=== PATIENT | female | born 1960 | race Caucasian/White ===

== ENCOUNTER 2021-10-28 14:25 | Outpatient (RCR) | payer OTHER, SELFPAY ==
--- OUTSIDE RECORDS SUMMARY | 2021-10-16 14:48 | XMS_ITS | Continuity of Care Document ---
:1960 Author Care Team Providers Name Role Phone MD Yoav Attending Physician Unavailable MD Yari Tate Primary Care Physician Chief Complaint and Reason for Visit Chief Complaint Hypertension Reason for Visit Flushing syndrome Transient rise of blood pres sure Allergies, Adverse Reactions, Alerts Allergen Type Severity Reaction Last Verified Status Updated Latex Allergy Severe HIVES, LIP October 06, Yes Active SWELLING, 2021 THROAT SWELLING, RESPIRATORY DIFFICULTY KIWIS Allergy Moderate ITCHING July 25, No Active 2013 Social History Smoking Status Status Start Date End Date Date of Observat ion Never smoked tobacco October 07 022 8:33am (finding) Observation Status Observation Response Date of Response History provided by Patient April 23, 2017 1:06pm Where do you live? Own home/apt April 23, 2017 1:06pm With whom do you live? Significant Other April 23 1:06pm Additional Data Assigned Sex Female Problems Active Problems Medical Problem Onset Date Status Benign tachycardia - reported June 17, 2011 Resolved Hypothyroidism June 17, 2011 Active Carpal Tunnel Syndrome June 17, 2011 Active Lipoma June 17, 2011 Active Breast cancer Resolved Constipation Active Ovarian cyst Active Fibroid uterus Active Chronic low back pain Active Joint pain Active Low libido Active Osteopenia Active Generalized anxiety disorder Active Insomnia Active Well woman exam with routine Active gynecological exam Ganglion cyst Active Breast cancer 2021 Active Breast Lump June 17, 2011 Resolved Cholecystectomy June 17, 2011 Resolved NovaSure in 2009 June 17, 2011 Resolved tubal sterilization June 17, 2011 Resolved hand surgery June 17, 2011 Resolved S/P total hip arthroplasty Active Status post bilateral Active salpingo-oophorectomy (BSO) Status post left breast biopsy Active Medications Medication Status Dose Units Route Directions Qty Days Start End Ins tructions Date Date Acetaminophe Active 325-65 MG PO Every 4 100 NO MORE THAN n (Tylenol) 0 Hours as 4000 MG/DAY 325 Mg TAB needed Amoxicillin Active 2000 MG PO Once 08 July 1 HR MN IOR TO , APPT 2020 10:40am Ibuprofen Active 600 MG PO Every 6 30 Hours as needed Levothyroxin Active 100 MCG PO Daily October e Sodium 2021 9:52am Lorazepam Active 0.5 MG PO Every 12-24 October (Ativan) 0.5 Hours 15, Mg TAB 2021 10:11am Lorazepam Active 0.5 MG PO Twice A Day 60 30 October (Ativan) 0.5 15, Mg TAB 2021 10:15am Prochlorpera Active 10 MG PO Every 8-12 30 October P RN zine Maleate Hours as , Naus ea/vomiti needed for 2021 ng Nausea/Vomi 12:04pm ting Acetaminophe Disconti 325-65 MG PO Every 4 Decemb NO MORE THAN n (Tylenol) nued 0 Hours as er 4000 MG/DAY 325 Mg TAB needed 2015 10:43a m Acetaminophe Disconti 1 TAB PO Q4h Prn December n/Hydrocodon nued , ry e Bitart 2004, (Vicodin Es 1:03pm 2006 750/7.5 Mg) 12:03p 1 Ea TAB m Albuterol Disconti 2 PUFF INH Every 4 October (Ventolin nued Hours as 4th, 8th, Hfa) 90 Mcg needed 2017 2017 DOSE 3:50pm 3:18pm Amoxicillin Disconti 2000 MG PO Once May 1 H R PRIOR TO nued , , APPT 2019 2020 1:34pm 10:40a m Amoxicillin Disconti 1 TABLET PO Twice Daily July & Pot nued For 10 Days , , Clavulanate 2015 2015 (Augmentin) 11:51am 1:15pm 875 Mg/125 Mg TAB Amoxicillin/ Disconti 1 TAB PO Twice A Day July Clavulanate nued , , Potassium 2018 2018 (Amoxicillin 2:19pm 2:00pm & Pot Clavulanate) 875 Mg/125 Mg TAB Anastrozole Disconti 1 MG OR Daily May nued , 2020 1:07pm 1:46pm Anastrozole Disconti 1 MG OR Daily nued r 18, y 2019, 3:03pm 2020 1:07pm Anastrozole Disconti 1 MG PO Daily December (Arimidex) 1 nued , er Mg TAB 2019, 3:48pm 2019 12:15a m Anastrozole Disconti 1 MG PO Daily December (Arimidex) 1 nued r , , Mg TAB 2018 2019 3:06pm 3:48pm Aspirin Disconti 325 MG PO Daily Octobe nued r 2016 2:50pm Calcium/Lucila Disconti 1 TAB PO Twice A Day Sept em min D nued armando (Calcium , Carbonate/Vi 2014 tamin D) 600 2:24pm Mg/400 Unit TAB Celecoxib Disconti 200 MG PO Daily October (Celebrex) nued , er 200 Mg CAP 2016 02, 2:40pm 2015 7:37am Cephalexin Disconti 2 GRAMS PO Once 4 t abs (2 nued er y grams) by , , mouth 1 hour 2017 2019 prior to 2:51pm 10:22a dental m appointment. Cephalexin Disconti 2 GRAMS PO Once January 4 ta bs (2 nued 18, 27th, grams) by 2016 2017 mouth 1 hour 4:33pm 2:13pm prior to dental appointment. Ciprofloxaci Disconti 500 MG PO Twice A Day August n Hcl nued , , (Cipro) 500 2008 2008 Mg TAB 8:31am 8:46am Ciprofloxaci Disconti 500 MG PO Twice A Day 13 February Oc sharif n Hcl nued , r (Cipro) 500 2006, Mg TAB 10:54am 2007 1:52pm Clindamycin Disconti 150 MG PO Four Times Hcl nued Daily er 2009 3:31pm Cyclobenzapr Disconti 1 - 2 TABLET PO Three Times July PRN MUSCLE ine Hcl nued A Day , er SPASM (Flexeril) 5 2008 12, Mg TAB 1:58pm 2009 3:31pm Cyclobenzapr Disconti 10 MG PO Tid Prn Decemberua ine Hcl nued , ry 2005 , 1:03pm 2006 12:03p m Ergocalcifer Disconti 62398 UNIT PO Once Weekly 10 May Ju sadia ol (Vitamin nued 27th, 15th, D) 50,000 2020 2021 Unit CAP 1:01pm 8:31am Ergocalcifer Disconti 05445 UNIT PO Once Weekly Ja marysol ol (Vitamin nued r , y D) 50,000 2019, Unit CAP 3:31pm 2020 1:01pm Fluconazole Disconti 150 MG PO Once 1 July (Diflucan) nued , , 150 Mg TAB 2015 2015 12:47pm 1:15pm Fluconazole Disconti 150 MG PO Once July REPEAT IN nued y , 18, 3 DAYS 2008 2008 1:59pm 10:07p m Hydroxyzine Disconti 25 MG PO Q6h Prn January Pamoate nued , ry 2003, 2:11am 2006 12:03p m Ibuprofen Disconti 600 MG PO Every 6 Mayuar nued Hours as y , needed 2017 12:48p m Ibuprofen Disconti 600 MG PO Qid Prn for October nued Pain 2015 1:15pm Levothyroxin Disconti 88 MCG PO Daily August e Sodium nued , , 2020 2021 6:32pm 8:33am Levothyroxin Disconti 88 MCG PO Daily May e Sodium nued , , 2020 2020 8:03pm 6:32pm Levothyroxin Disconti 75 MCG PO Daily 30 e Sodium nued r 18, y 2019 14, 1:08pm 2020 1:17pm Levothyroxin Disconti 75 MCG PO Daily 90 Novembe Decemb e Sodium nued r , er 2018, 1:28pm 2019 1:08pm Levothyroxin Disconti 75 MCG PO Daily 90 Sept Novemb e Sodium nued er er 2018 8:24am 1:28pm Levothyroxin Disconti 75 MCG PO Daily 90 Novembe Septem e Sodium nued r 16, armando 2017 5:41am 2018 8:24am Levothyroxin Disconti 75 MCG PO Daily October e Sodium nued th, er 2017 16, 2:28pm 2017 5:41am Levothyroxin Disconti 75 MCG PO Daily August e Sodium nued 2017 10:41am 2:28pm Levothyroxin Disconti 75 MCG PO Daily August e Sodium nued 2016 3:17pm 10:41a m Levothyroxin Disconti 75 MCG PO Daily May e Sodium nued 2016 1:50pm 3:17pm Levothyroxin Disconti 75 MCG PO Daily e Sodium nued er y 2015 2:27pm 1:50pm Levothyroxin Disconti 75 MCG PO Daily August e Sodium nued , 2014, 3:33pm 2015 2:27pm Levothyroxin Disconti 75 MCG PO Daily August e Sodium nued 2013 9:11am 3:33pm Levothyroxin Disconti 75 MCG PO Daily August e Sodium nued r 2012 2:47pm 9:11am Levothyroxin Disconti 75 MCG PO Daily August e Sodium nued , , (Levothroid) 2012 2013 75 Mcg TAB 2:35pm 11:25a m Levothyroxin Disconti 75 MCG PO Daily August e Sodium nued , , (Levothroid) 2012 2012 75 Mcg TAB 1:28pm 10:23a m Levothyroxin Disconti 75 MCG PO Daily 30 August e Sodium nued y , , (Levothroid) 2011 2012 75 Mcg TAB 2:05pm 1:28pm Levothyroxin Disconti 75 MCG PO Daily 30 Februar Februa e Sodium nued y , (Levothroid) 2011, 75 Mcg TAB 8:19am 2011 2:05pm Levothyroxin Disconti 75 MCG PO Daily 90 Novem Februa e Sodium nued r , ry (Levothroid) 2010 3rd, 75 Mcg TAB 4:10pm 2011 8:19am Levothyroxin Disconti 75 MCG PO Daily Novemb e Sodium nued er (Levothroid) 8th, 75 Mcg TAB 2009 4:10pm Lidocaine/Al Disconti 15-30 ML PO Four Times October MAGIC MOUTHWASH 1:1:1 uminum/Magne nued Daily as , RADHA DRYLELIX:VISCLIDOCAINE:MAALOX sium/Simeth needed for 2013 USE SWISH EVERY 4 HOURS NEEDED (FOR CHILDREN (Magic Pain 1:31pm GREATERTHAN 6MONTHS OF AGE) Mouthwash) 240 Ml SOLN Lorazepam Disconti 0.5 MG PO Bedtime as August nued needed , 2014 3:34pm 1:15pm Lorazepam Disconti 0.5 MG PO Three Times ua nued A Day as ry needed for , Nausea/Vomi 2014 ting 2:34pm Meloxicam Disconti 7.5 MG PO Daily Augustem nued , armando 2016 , 3:41pm 2015 3:08pm Methocarbamo Disconti 750-15 MG PO Three Times 01 March F ebrua l nued 00 A Day as , ry needed 2013 03, 1:31pm 2014 2:34pm Methocarbamo Disconti 750-15 MG PO Three Times October obe l nued 00 A Day as 16, r needed 2013 01, 3:15pm 2012 1:31pm Methylpredni Disconti 21 TAB PO Take As January TAKE solone nued Directed , ry DIRECTED O N 2004 , PACKAGE -TAKE 2:11am 2006 WITH FOOD- 12:03p m Metoprolol Disconti 25 MG PO Daily 29 November Decemb Succinate nued , er (Toprol Xl) 2019 2nd, 25 Mg TABCR 1:49pm 2019 3:09pm Metronidazol Disconti 500 MG PO Twice A Day 16 May Ja nuar e nued 17, y 2011 30, 5:42pm 2011 3:41pm Naproxen Disconti 220 MG OR Twice A Day 02 October Sodium nued , (Aleve) 220 2021 Mg CAP 2:53pm Naproxen Disconti 220 MG OR As Needed October Sodium nued for Pain , (Aleve) 220 2016 Mg CAP 1:15pm Naproxen Disconti 220 MG OR as needed Novemb Sodium nued for Pain er (Aleve) 220 10th, Mg CAP 2013 11:03a m Nitrofuranto Disconti 100 MG PO Twice A Day 10 October Nove mb in nued , er Macrocrystal 2008 12, s (Macrobid 9:10am 2009 100 Mg) 100 3:31pm Mg CAP Nitrofuranto Disconti 100 MG PO Twice A Day 7 No vemb in nued er 9, er Macrocrystal 2008 12, s (Macrobid 12:10pm 2009 100 Mg) 100 3:31pm Mg CAP None Disconti Februa nued ry 2006 12:03p m Omeprazole Disconti 20 MG PO Daily 30 Novemb (Prilosec) nued er 20 Mg CAP 2013 3:36pm Oxycodone/Ac Disconti 1-2 TAB PO Every 4 Mayr etaminophen nued Hours as 5th, y (Percocet) 5 needed 2017 31st, Mg/325 Mg 7:28am 2017 TAB 10:05a m Oxycodone/Ac Disconti 1-2 TAB PO Every 4-6 May ar etaminophen nued Hours as 12th, y (Percocet) 5 needed 2017 31, Mg/325 Mg 9:51am 2018 TAB 10:05a m Oxycodone/Ac Disconti 1-2 TAB PO Every 4 60 Novembe Decemb etaminophen nued Hours as r 10th, er needed for 2015, Pain 8:59am 2015 10:43a m Oxycodone/Ac Disconti 1 - 2 TAB PO Q4h Prn August etaminophen nued , (Percocet 2008 10/325) 1 12:02a Tab TAB m Paroxetine Disconti 10 MG PO Daily October Hcl (Paxil) nued , 15th, 10 Mg TAB 2013 2014 9:15am 3:33pm Paroxetine Disconti 10 MG PO Daily July Hcl (Paxil) nued , , 10 Mg TAB 2012 2013 12:08pm 9:15am Paroxetine Disconti 10 MG PO Daily July Hcl (Paxil) nued , , 10 Mg TAB 2012 2012 10:51am 12:08p m Paroxetine Disconti 10 MG PO Daily Octobe Hcl (Paxil) nued r 10 Mg TAB 2007 1:52pm Prochlorpera Disconti 10 MG PO Three Times 30 Nove jabari zisadia Maleate nued A Day as er needed for , Nausea/Vomi 2013 ting 11:03a m Sennosides Disconti 2 TAB PO Twice A Day 30 Novembe Dece mb (Senna) 8.6 nued as needed r , er Mg TAB 2015, 7:37am 2015 10:43a m Sulfamethoxa Disconti 1 TABLET PO Bid [id number] Aug il zole-Trimeth nued , oprim 2008 (Bactrim Ds 1:02pm (800/160)) 800 Mg/160 Mg TAB Tamoxifen Disconti Daily Novemb nued er 2013 3:36pm Tamoxifen Disconti 20 MG PO Daily 90 August Citrate nued , 2020 1:46pm 10:11a m Tamoxifen Disconti 20 MG PO Daily 90 Decembe Decemb Star t taking when INR is therapeutic and you are at least 5 Citrate nued r , er days 2017 07, after surgery 9:57am 2018 3:07pm Tamoxifen Disconti 20 MG PO Daily 30 Novembe Decemb Star t taking when INR is therapeutic and you are at least 5 Citrate nued r , er days 2016 04, after surgery 7:37am 2017 9:57am Tamoxifen Disconti 20 MG PO Daily 30 Novemb Citrate nued er 2015 10:38a m Tramadol Hcl Disconti 50-100 MG PO Q6-8HRS as 60 July ar nued needed 2019, 1:02pm 2020 12:51p m Tramadol Hcl Disconti 50-100 MG PO Q6-8HRS as 60 Novembe Ma [facility] nued needed r , 2018 1:29pm 1:01pm Tramadol Hcl Disconti 50-100 MG PO Q6-8HRS as 50 August Patricia barboza nued needed , er 2018, 11:32am 2018 1:28pm Tramadol Hcl Disconti 50 MG PO Every 6 50 Decembe Traci nued Hours as r , , needed 2017 2018 9:28am 2:00pm Tramadol Hcl Disconti 50 MG PO Every 6 50 Novembe Decemb nued Hours as r , er needed 2018 04, 10:12am 2017 9:28am Tramadol Hcl Disconti 50 MG PO Every 6 30 Septemb Novemb nued Hours as er er needed , , 2017 2017 2:51pm 10:12a m Tramadol Hcl Disconti 50-100 MG PO Every 6 December nued Hours as , , needed 2017 2017 4:15pm 8:32am Tramadol Hcl Disconti 50-100 MG PO Every 6-8 May ch nued Hours as , , needed 2017 2017 10:38am 10:21a m Tramadol Hcl Disconti 50-100 MG PO Every 6-8 May obe nued Hours as , r needed 2016, 1:30pm 2016 2:50pm Tramadol Hcl Disconti 50-100 MG PO Qhs as 01 March Decemb nued needed , er 2016 , 4:29pm 2015 10:43a m Tramadol Hcl Disconti 50-100 MG PO Every 6-8 40 Novembe Dec emb nued Hours as r , er needed 2015, 8:57am 2015 10:43a m Tramadol Hcl Disconti 50-100 MG PO Qhs as 01 March Octobe nued needed , r 2015, 4:40pm 2015 4:29pm Trazodone Disconti 50 MG PO Bedtime as 60 Novemoctober Hcl nued needed r , , 2018 2021 1:26pm 8:31am Venlafaxine Disconti 75 MG PO Daily Octoberem Hcl nued (Venlafaxine 2014, Hcl Er) 75 2:38pm 2016 Mg CAPCR 3:08pm Venlafaxine Disconti 2 TAB PO Daily October Hcl nued , , (Venlafaxine 2014 2014 Hcl Er) 37.5 7:51am 2:38pm Mg CAPCR Venlafaxine Disconti 37.5 MG PO Daily August Hcl nued , , (Venlafaxine 2014 2014 Hcl Er) 37.5 3:33pm 7:51am Mg CAPCR Warfarin Disconti 5 MG PO Daily May Sodium nued , 2017 7:28am 10:21a m Warfarin Disconti 4 MG PO Daily 60 Decembe Decemb [place]aranjo 4 MG, M 4 Sodium nued r 2nd, er MG, Tu 4 MG, 2015, W 4 MG, Th 4 12:55pm 2016 MG, F 4 MG, 10:43a Sa 4 MG m Warfarin Disconti 4 MG PO Daily 60 Decembe Decemb [place] 4 MG, M 4 Sodium nued r 2nd, er MG, Tu 4 MG, 2015 06, W 4 MG, Th 4 12:42pm 2016 MG, F 4 MG, 12:55p Sa 4 MG m Warfarin Disconti 4 MG PO Daily 60 Novembe Decemb [place] 4 MG, M 4 Sodium nued r 14, er MG, Tu 4 MG , 2015 06, W 4 MG, Th 4 12:43pm 2016 MG, F 4 MG, 12:42p Sa 4 MG m Warfarin Disconti 4 MG PO Daily 60 Novembe Novemb Sodium nued r 10th, er 2015 14, 7:37am 2015 12:43p m Immunizations Immunization Event Date Not Given Dose Inside Steward/Stewardess Lot Vac cine Reason Number Number Informatio n Statement (VIS) Deta il COVID-19 Javy April 02 (J&J) 2020 Influenza May [id number] Tdap February 02 (adolescent/adul 2011 t) Procedures Procedure Date Performed Status Future Lab Clinic October 07, 2021 completed Future Lab Clinic October 07, 2021 completed DX MAMMO INCL CAD BI September 30, 2021 completed US LMTD JT/NONVASC XTR STRUX September 30, 2021 completed ULTRASOUND BREAST LIMITED September 30, 2021 completed DIAGNOTIC DIGITAL BREAST September 30, 2021 completed TOMOSYNTHESIS, UNI OR BILATERAL DX MAMMO INCL CAD UNI October 02, 2021 completed NEEDLE BIOPSY LYMPH NODES October 02, 2021 completed ECHO GUIDE FOR BIOPSY October 02, 2021 completed BX BREAST 1ST LESION US IMAG October 02, 2021 completed DIAGNOTIC DIGITAL BREAST October 02, 2021 completed TOMOSYNTHESIS, UNI OR BILATERAL TUBING October 02, 2021 completed Tissue marker implantable October 02, 2021 completed ASSAY THYROID STIM HORMONE October 06, 2021 completed ASSAY OF FREE THYROXINE October 06, 2021 completed MRI BREAST C-+ W/CAD BI October 07, 2021 completed SUPPLY October 07, 2021 completed PET IMAGE W/CT SKULL-THIGH October 09, 2021 completed Ultrasound of soft tissue of September 30, 2021 completed right upper extremity Diagnostic digital mammography September 30, 2021 completed of both breasts US breast right limited September 30, 2021 completed Diagnostic digital mammography October 02, 2021 completed of right breast Biopsy of breast with October 02, 2021 completed ultrasound guidance Biopsy of axillary lymph node October 02, 2021 completed with ultrasound guidance MRI breast bilateral October 07, 2021 completed Positron emission tomography October 09, 2021 completed from base of cranium to mid-thigh Relevant Diagnostic Tests and/or Laboratory Data Laboratory Results Test Date/Time Result Interpretation Reference Result Perfo rming Range Comment Site Thyroid October 06, 4.980 0.270-4.200 Patients [facility] Lab Stimulating 2021 3:50pm taking a high 20 00 [facility] Hormone (TSH) dose [facility] [address] (>5mg/day) of Biotin supplement (vitamin B7) will demonstrate a >10% negative bias for TSH testing. Free Thyroxine October 06, 0.84 0.70-1.85 [facility] 2021 3:50pm [address] [facility] [address] Pathology October 02, SEE REF [facility] Lab Specimen 2021 9:05am PATH [address] [facility] Result SCAN [facility] [address] Diagnostic Imaging Reports Report Dictated Date/Time Dictated By Status September 30, 2021 9:27am Leticia Singh MD [facility] [address] [place] [address] ~DEPARTMENT OF DI AGNOSTIC IMAGING~ Patient: LEROY MCDONALD MR #: [id number] : 1960 Age: 61 Sex: F Ordering MD: ASHTYN GRACE MD Rm/B ed: Loc: US Report #: [id number] US/EXT UP NON VAS RT Date: 09/30/21 Signed For Patients: As a result of the entury Cures Act, medical imaging exams and procedure reports are release d immediately into your electronic medical record. You may view this repo rt before your referring provider. If you have questions, please contact y our health care provider. CLINICAL HISTORY: : Right axillary lump. History of left br east cancer status post lumpectomy in 2013. Per patient history, left axil sergio sentinel lymph node biopsy was performed. COMPARISON: Mammogram from 03/2021 TECHNIQUE: Real-time ultrasound imaging of right a xilla with imaging documentation. Scanning was performed by both the tech nologist and the radiologist. FINDINGS: Within the right axilla, there 2 lymph nodes with abnormally thickened cortices, the 1st measures 2.5 x 1.6 x 2.1 centimeters and the 2nd measures 1.3 x 0.7 x 1.0 centimeters. Multiple a dditional lymph nodes seen within the right axilla did not show suspiciou s morphology by imaging. IMPRESSION: Two suspicious lymph nodes within the r ight axilla. Ultrasound-guided biopsy is recommended. Diagnostic mammo gram with possible ultrasound is also recommended. RECOMMENDATIONS: Ultrasound-guided biopsy of 1 of the ri ght axillary lymph nodes is recommended. Diagnostic mammogram with possible ultrasound is also recommended. BI-RADS: 4, suspicious Dictated by Leticia Velez MD @ 10/01/19 10:16:17 AM (Electronically Signed) Dictated By: LETICIA VELEZ MD Signed By: LETICIA VELEZ MD Report Dictated Date/Time Dictated By Status September 30, 2021 11:33am Leticia Singh MD [address] [facility]~ Patient: LEROY MCDONALD MR #: [id number] : 1960 Age: 61 Sex: F Ordering MD: ASHTYN GRACE MD Rm/B ed: Loc: US Report #: [id number] Si gned DATE: 09/30/21 MINO/DIAGNOSTIC MAMMO, BILAT, W /CAD US/BREAST RIGHT LIMITED CLINICAL HISTORY: Right axillary mass. TECHNIQUE: Bilateral mammogram includin g CC and MLO views as well as right true lateral and spot compression CC and MLO views and targeted right breast ultrasound. COMPARISON: Mammograms dating back to . FINDINGS: Density is heterogeneously de nse which may obscure small masses. At the 10 o'clock position right breast, th ere is a 15 mm focal asymmetry which was further evaluated with ultrasound. The left breast shows postsurgical changes in the upper outer left breast. Ultrasound findings: Ultrasound of the 10 o'clock 10 cm from the nipple position right breast shows an irregular hypoechoic mass measuring 15 x 8 x 17 mm. Please note two suspicious left axi llary lymph nodes which were imaged on same-day axillary ultrasound. IMPRESSION: Suspicious right breast mas s and two axillary lymph nodes, axillary lymph nodes imaged separately. RECOMMENDATION: Ultrasound-guided biop sy is recommended for right breast mass as well as one of the suspicious right a xillary lymph nodes. Findings and recommendations were discussed with the patient in person. ACR BI-RADS category 4, suspicious <<Signatur e on File>> Dictated By: LETICIA VELEZ MD Signed By: LETICIA VELEZ MD ~~ADDE NDUM~~ ADDENDUM: IMPRESSION: ACR BI-RADS category 4, Naranjo spicious Finding <<Signatur e on File>> Addendum Dictated By: LETICIA VELEZ MD Addendum Signed By: DREW YAP MD Report Dictated Date/Time Dictated By Status October 02, 2021 9:21am Lilo Anaya MD [address] [address] ~DEPARTMENT OF DI AGNOSTIC IMAGING~ Patient: LEROY MCDONALD MR #: [id number] : 1960 Age: 61 Sex: F Ordering MD: ASHTYN GRACE MD Rm/B ed: Loc: US Report #: [id number] US/BIO PSY LYMPH NODE-AXILLARY/ING Date: 10/02/21 Signed For Patients: As a result of the entury Cures Act, medical imaging exams and procedure reports are release d immediately into your electronic medical record. You may view this repo rt before your referring provider. If you have questions, please contact y our health care provider. Examination / Procedure: Ultrasound guided biopsy right axillary lymphadenopathy. Indication: Right axillary lymphadenopathy. Comparison: : Ultrasound 09/30/2021. Findings/impression: : Exam dictated with breast biopsy 2021. Please see that report for details. Dictated by Lilo Anaya MD @ 10/02/2021 9:34:09 AM (Electronically Signed) Dictated By: LILO ANAYA MD Signed By: LILO ANAYA MD Report Dictated Date/Time Dictated By Status October 02, 2021 9:20am [place] [address] ~DEPARTMENT OF DI AGNOSTIC IMAGING~ Patient: LEROY MCDONALD MR #: [id number] : 1960 Age: 61 Sex: F Ordering MD: ASHTYN GRACE MD Rm/B ed: Loc: US Report #: [id number] US/ANDRA AST BX CORE NEED RT Date: 10/02/21 Signed For Patients: As a result of the entury Cures Act, medical imaging exams and procedure reports are release d immediately into your electronic medical record. You may view this repo rt before your referring provider. If you have questions, please contact y our health care provider. Ultrasound-guided right breast and axil la biopsies. : Clinical information: Posterior right breast mass at the 10 o `clock position with right axillary lymphadenopathy. Comparison: Ultrasound 09/30/2021 and diagnostic ma mmograms 09/30/2021. Procedure: Informed consent: The risks, benefits, and alternatives of the procedure were discussed with the patient. Verbal and written consent was obtained. Time-out Time-out performed to confirm the correct patient, procedure, and site. Preparation: A suitable skin site was i dentified. The patient was prepped and draped in usual sterile fashion. Biopsy #1 Local anesthesia: Lidocaine 1%. A small skin mati was made with a scalpel. Biopsy device: Bard 16 gauge Site: Right breast mass at the 10 o`vonnie ck position. Number of samples: Six 1.3 cm biopsy co res. Medium: Samples were placed in formalin . Marker: Biopsy clip was placed within t he mass. Biopsy # 2 Local anesthesia: 1 percent lidocaine w ithout epinephrine. A small skin mati was made with a scalpel. Biopsy device: A small skin mati was ma de with a scalpel. Bard 16 gauge. Site: Right axillary lymphadenopathy. Number of samples: Three 1.3 cm biopsy cores. Medium: Samples were placed in formalin . Markers: Biopsy clip was placed in the right enlarged axillary lymph node. Complications: Patient tolerated the pr ocedure well. There were no immediate complications. Pressure was held at the biopsy site an d Steri-Strips placed. Postprocedure information was given to the patient. P florentino was taken to mammography suite for post clip mammograms. Please see separate post clip mammograms. Impression: Ultrasound-guided biopsy of the right b reast mass and right axillary lymphadenopathy. Dictated by Lilo Anaya MD @ 10/02/2021 10:11:33 AM (Electronically Signed) Dictated By: LILO ANAYA MD Signed By: LILO AANYA MD ~~ADDE NDUM~~ For Patients: As a result of the entury Cures Act, medical imaging exams and procedure reports are release d immediately into your electronic medical record. You may view this repo rt before your referring provider. If you have questions, please contact y our health care provider. ADDENDUM: ACR not applicable CRL:jj Ultrasound-guided right breast and axil la biopsies. : Clinical information: Posterior right breast mass at the 10 o `clock position with right axillary lymphadenopathy. Comparison: Ultrasound 09/30/2021 and diagnostic ma mmograms 09/30/2021. Procedure: Informed consent: The risks, benefits, and alternatives of the procedure were discussed with the patient. Verbal and written consent was obtained. Time-out Time-out performed to confirm the correct patient, procedure, and site. Preparation: A suitable skin site was i dentified. The patient was prepped and draped in usual sterile fashion. Biopsy #1 Local anesthesia: Lidocaine 1%. A small skin mati was made with a scalpel. Biopsy device: Bard 16 gauge Site: Right breast mass at the 10 o`vonnie ck position. Number of samples: Six 1.3 cm biopsy co res. Medium: Samples were placed in formalin . Marker: Biopsy clip was placed within t he mass. Biopsy # 2 Local anesthesia: 1 percent lidocaine w ithout epinephrine. A small skin mati was made with a scalpel. Biopsy device: A small skin mati was ma de with a scalpel. Bard 16 gauge. Site: Right axillary lymphadenopathy. Number of samples: Three 1.3 cm biopsy cores. Medium: Samples were placed in formalin . Markers: Biopsy clip was placed in the right enlarged axillary lymph node. Complications: Patient tolerated the pr ocedure well. There were no immediate complications. Pressure was held at the biopsy site an d Steri-Strips placed. Postprocedure information was given to the patient. P atient was taken to mammography suite for post clip mammograms. Please see separate post clip mammograms. Impression: Ultrasound-guided biopsy of the right b reast mass and right axillary lymphadenopathy. Dictated by Lilo Anaya MD @ 10/02/2021 10:11:33 AM Signed by: Lilo Anaya @ 10/02/2021 10:1 1:33 AM (Electronic Signature) (Electronically Signed) <<Signatur e on File>> Addendum Dictated By: LILO ANAYA MD Addendum Signed By: LILO ANAYA MD ~~ADDE NDUM~~ ADDENDUM Biopsy results have returned and reveale d invasive ductal carcinoma of the breast with associated DCIS and metastat ic carcinoma to the biopsied right axillary lymph node. Biopsy results are malignant and concordant for both sites. Surgical consultation is recomme nded. Results and recommendations will be discussed with the patient by a roni ames of our staff. <<Signatur e on File>> Addendum Dictated By: LETICIA VELEZ MD Addendum Signed By: DREW YAP MD Report Dictated Date/Time Dictated By Status October 02, 2021 11:02am Lilo Anaya MD [address]~ Patient: LEROY MCDONALD MR #: [id number] : 1960 Age: 61 Sex: F Ordering MD: ASHTYN GRACE MD Rm/B ed: Loc: US Report #: [id number] Si gned DATE: 10/02/21 MINO/DIAGNOSTIC MAMMO, RIGHT, W /CAD CLINICAL HISTORY: Post clip mammograms. EXAM: CC, ML, and MLO right breast mamm ograms. COMPARISON: Mammograms 09/30/21 FINDINGS: Biopsy clip in the upper oute r right breast in the site of irregular breast mass. On single right MLO mammog demario, clip can be seen in the enlarged biopsied right axillary lymph node. IMPRESSION: Biopsy clips in the right b reast upper outer mass and right axillary lymph node. <<Signatur e on File>> Dictated By: LILO ANAYA MD Signed By: LILO ANAYA MD Report Dictated Date/Time Dictated By Status October 07, 2021 4:57pm Leticia Singh MD [address]~ Patient: LEROY MCDONALD MR #: [id number] : 1960 Age: 61 Sex: F Ordering MD: Natacha Gunter MD Rm/B ed: Loc: RAD Report #: [id number] MRI/BR EAST BILATERAL W&WO/ W CONTR Date: 10/07/21 Signed For Patients: As a result of the entury Cures Act, medical imaging exams and procedure reports are release d immediately into your electronic medical record. You may view this repo rt before your referring provider. If you have questions, please contact y our health care provider. BILATERAL BREAST MRI WITHOUT AND WITH G ADOLINIUM, 10/07/2021 CLINICAL HISTORY: Newly diagnosed RIGH T breast cancer. History of LEFT breast cancer in 2013 status post lumpe ctomy, radiation and chemotherapy. Newly diagnosed RIGHT breast invasive d uctal carcinoma at the 10 o`clock 10 cm from the nipple position with positi ve axillary disease. INDICATION FOR BREAST MRI: Staging of newly diagnosed breast cancer and screening of contralateral breast. Reg ional lymph nodes will also be assessed. COMPARISON STUDIES: Mammograms and ult rasounds dating back to 2019. CONTRAST: 15 mL Dotarem. TECHNIQUE: The patient was positioned prone using a breast coil. Multiple imaging sequences were obtained using 1 -1.5 mm thick slices with no gap. The image sequences include T2-weighted STIR in the axial plane, T1-weighted nonfat-saturated gradient e cho in the axial plane, pre- and post-contrast T1-weighted FLASH 3D with fat suppression in the axial plane, and T1-weighted FLASH high-resolution 3 D with fat suppression in the sagittal plane. Image post-processing was performed on a [employer] independent workstation. Complex 3D rendering incl uding maximum intensity projections (MIPS) and volumetric renderings were o btained to optimize visualization of the extent of pathology and relationshi p to the nipple, skin, and chest wall. This aids in determining feasibi lity of breast conservation surgery. Subtraction, multiplanar reconstructio n, mean curve determination, and angiogenesis mapping were also performe d. The study was technically adequate. FINDINGS: Amount of Fibroglandular Tissue: Heter ogeneous fibroglandular tissue which may obscure small masses. Breast Background Enhancement: Mild. RIGHT Breast: At the RIGHT breast 10 o `clock 10 cm from the nipple position there is redemonstration of th e irregular mass, representing biopsy-proven malignancy. There is con tiguous non-mass enhancement extending posteriorly to another smalle r enhancing mass which is also suspicious. Total extent including the se two masses is approximately 2.9 cm anterior posterior. Enhancement ext ends to the lateral skin, presumably representing post-biopsy change. There is no suspicious chest wall enhancement. LEFT Breast: The LEFT breast shows pos t-treatment changes within the upper outer LEFT breast. Lymph Nodes: There are numerous enlarg ed lymph nodes, at least four level 1 and level 2 RIGHT axillary lymph node s which are suspicious, one of these has been biopsied with biopsy-proved me tastatic disease. Other Findings: None. IMPRESSIONS AND RECOMMENDATIONS: Enhan cing RIGHT breast mass consistent with biopsy-proven malignancy, please n ote that there is contiguous non-mass enhancement extending posterio rly to an additional smaller suspicious mass and when measured toget her, these two masses span a distance of 2.9 cm anterior posterior. There are at least four enlarged and suspicious level 1 and level 2 RIGH T axillary lymph nodes. No other suspicious enhancement identified. Rec ommend definitive treatment for biopsy proven right breast malignancy w ith known axillary metastatic disease. BI-RADS: BI-RADS Category 6: Known Bio psy-Proven Malignancy Leticia Velez M.D. Diagnostic Radiologist [email or web address] NICKI/louise / be/Dictated by: Leticia Velez MD @ 10/09 6:16:00 PM (Electronically Signed) Dictated By: LETICIA VELEZ MD Signed By: LETICIA VELEZ MD Report Dictated Date/Time Dictated By Status October 09, 2021 5:54pm [place] [address] ~DEPARTMENT OF DI AGNOSTIC IMAGING~ Patient: LEROY MCDONALD MR #: [id number] : 1960 Age: 61 Sex: F Ordering MD: ASHTYN GRACE MD Rm/B ed: Loc: RAD Report #: [id number] NM/STA NDARD BODY PET/CT Date: 10/09/21 Signed For Patients: As a result of the entury Cures Act, medical imaging exams and procedure reports are release d immediately into your electronic medical record. You may view this repo rt before your referring provider. If you have questions, please contact y our health care provider. INDICATION: 61 year-old female. Newly diagnosed rig ht-sided breast cancer/invasive ductal carcinoma status post right tina st and right axillary lymph node biopsy October 02, 2021 with biopsy-proven metastatic disease to an axillary lymph node. Prior history of infiltrati ng ductal carcinoma of the left breast August 2013 status post lumpectom y and sentinel lymph node biopsy with subsequent chemotherapy, radiation therapy, and tamoxifen therapy. Prior bilateral salpingo oophorectomy A 2017 for benign disease. Prior cholecystectomy and hip arthroplasties. TECHNIQUE: 13.37 mCi 18 FDG (18 rlxtah-xq-wzl-gluc ose) injected intravenously. Imaging performed from the orbits to th e mid thighs [address] performed for anatomic correlation a nd attenuation correction. Pre scan glucose: 79 mg/dL. FINDINGS: Physiologic activity is identified in t he brain, salivary glands, tongue, paralaryngeal soft tissues, myocardium, breasts, GI, and tract. The included intracranial structures an d included soft tissues of the head, face, and neck are within normal limits . Diffusely increased metabolic activity within a normal-appearing thyroid gland without focality. This is likely of a benign etiology. Consider correlation with thyroid function tests . Within the chest there is a subtle focu s of increased activity associated with a biopsy clip in the upper outer r ight breast at approximately the 10 o`clock position SUV max 3.3. There are 4 metabolically active right axillary/retropectoral lymph nodes compatible with metastatic disease. The largest contains a biopsy clip, marisel suring 2.1 x 2.3, SUV max 5.0. Slightly cephalad to this dominant lymp h node is a smaller 1 cm lymph node with an SUV max 4.3. Two adjacent superior axillary/retropec ben lymph nodes demonstrate an SUV max between 5.2 and 5.3. No focal abnormal activity in the left breast. No abnormal activity within either lung , hilar or mediastinal lymph nodes, or along the internal mammary chains. N o metabolically active supraclavicular lymphadenopathy. The abdomen is within normal limits. No abnormal activity within solid abdominal organs or upper abdominal lym ph node groups. There is a 3.2 x 3.8 cm the well-circum scribed mass along the posterior inferior margin of the right hepatic lo be with a measured SUV max 2.6 with background liver activity with an SUV m ax of 2.5. This is indeterminate. A diagnostic ger lity CT or liver MRI or even ultrasound may be helpful for further c haracterization. Within the pelvis, there is a well circ umscribed oval shaped right adnexal mass measuring approximately 4.5 x 3.2 cm. It is uncertain if this reflects the ri ght ovary or an exophytic uterine mass /fibroid. Correlation with pelvic ultrasound or a diagnostic quality CT may be helpful. This demonstrates low intermediate acti vity, SUV max 2.6, is indeterminate, and therefore should be further evaluat ed/imaged. The pelvis is otherwise negative. Both inguinal regions and soft tissues of the included thighs are within normal limits. The included skeleton is negative for m etabolically active metastatic disease. CT Findings: Normal-size normal-appeari ng thyroid gland. Postsurgical change from left breast lumpectomy. Lat eral right breast mass with a biopsy clip. Four enlarged right axillary/retropecto ral lymph nodes. Clear lungs. Hepatic fatty infiltration. Discrete fa irly well-circumscribed lesion in the posterior right hepatic lobe measur ing 3.2 x 3.8 cm potentially a hemangioma. This is indeterminate. A diagnostic ger lity CT of the abdomen and pelvis is recommended versus an MRI or ultrasound . No splenomegaly or hydronephrosis. Surgically absent gallbladder. Well-circumscribed right adnexal mass. Few sigmoid diverticula. Bilateral hip arthroplasties. IMPRESSION: 1. Metabolically active right breast le davi/mass with an associated biopsy clip SUV max 3.3. Four discrete metabol ically active right axillary/retropectoral lymph nodes the largest with a biopsy clip with an SUV max of 5.0. Two additional more sup erior axillary/retropectoral lymph nodes demonstrating SUV max between 5.2 and 5.3. No evidence for metastatic disease to the lungs or skeleton. 2. Well-circumscribed right adnexal mas s, SUV max 2.6 indeterminate, but potentially reflecting an exophytic fib roid or a primary ovarian lesion for which further imaging evaluation is rec ommended such as with CT and/or pelvic ultrasound. 3. Metabolically inactive but well-circ umscribed mass posteriorly inferior right hepatic lobe. Further characteriz ation is recommended with a diagnostic quality CT, possible ultraso und, or even MRI. 4. Intermediate to higher level activit y diffusely throughout a non enlarged thyroid gland likely of a vivian gn etiology. Correlation with thyroid function studies suggested. Dictated by Omar Hernandez MD @ 10/12/2021 10:37:52 AM (Electronically Signed) Dictated By: Omar Hernandez MD Signed By: Omar Hernandez MD Vital Signs Vital Reading Result Reference Range Collection Date/ Time Height 0 [in_i] October 06, 2021 2 :53pm Body Temperature 97.9 [degF] October 06, 2021 2:53pm Body Temperature 36.61 Maggy October 06, 2021 2:53pm Advance Directives Advance Directive Response Recorded Date/Time Does Pt have Health Care N - given today July 22 11:21am Directive? Has patient completed a No October 07, 2021 8 :33am Health Care Directive? Insurance Providers Guarantor Leroy Mcdonald Address [address] [address] Contact Info. Home Phone: Payer Policy Id Coverage Subscriber's Subscriber Effective Expira tion Id Name Id Date Date Preferred [id number] May Leroy Recinos 2014 Encounters Encounter Location(s) Arrival/Admit Date Discharge/Depart Date Provider(s) Registered [place] October 15, 2021 [facility] 6:56am Registered [place] October 09, [address] [facility] 3:42pm Registered [place] October 07, 2021 [facility] 9:25am Office Visit Surgery @ October 06, 2021 Jani Natacha [facility] 3:00pm Clinic [facility] October 06, 2021 null Practice 2:45pm Office Visit Women's Health October 06, 2021 [facility] 2:45pm Tiffanie Recinos MD Registered [place] October 06, 2021 [facility] 11:40am Registered [place] October 02, [address] [facility] 8:00am Registered [place] September 30, [address] [facility] 8:58am Recent Diagnosis Onset Date Pre-op evaluation Functional Status Observation Response Date Recorded Functional Status Independent May 07, 2017 3: 34pm Mental Status Observation Response Date Recorded Cognitive Status Alert May 07, 2017 3: 34pm Oriented May 07, 2017 3: 34pm Assessments Leroy is a 61 yo female with history of stage IA ER+MN-Her2+ left breast cancer, now with ER+MN-Her2+ right invasive ductal ca with axillary metastasis. We spoke about breast cancer, the significance of her receptor status as well as staging. We are going to begin with an MRI of the breast and axilla. Because she has axillary metastasis and is Her-2 positive, we will discuss with Dr. Grace the role for neoadjuvant chemotherapy. Because she has palpable adenopathy I did discuss with Leroy obtaining a PET scan and will also discuss with Dr. Grace. Regarding surgical treatment, pending MRI results, she may still be a candidate for breast conserving therapy. We also discussed mastectomy, unilateral or bilateral with or without reconstruction. I explained that if she undergoes neoadjuvant chemotherapy then we would perform a sentinel node biopsy as well as remove the biopsied node. If all nodes were negative after chemotherapy, then she would not need axillary dissection. If any node was positive, then she would need to undergo axillary dissection. If she does not undergo neoadjuvant chemotherapy then she would need to undergo axillary dissection on the right side. If she is a candidate for and chooses lumpectomy, she understands that she would undergo post-op radiation. Because of her palpable lymphadenopathy, she may require radiation post-operatively after mastectomy as well, but that would be determined after final surgical pathology and discussion with radiation oncology. She has previously undergone genetic testing so we did not make that referral today. I will reach out to Dr. Grace to discuss the plan and we will get Leroy in to see her and schedule a PET. I will call Leroy to discuss her MRI results this week. Plan of Treatment Future Tests Future scheduled test information is unavailable Pending Tests Pending diagnostic test information is unavailable Future Visits Future appointment information is unavailable Referrals to Other Providers Reason for Referral Start Provider Provider Contact Provider Address Referral Date Information Santiago Tate Work Phone: [facility] EDWARDO SANCHEZ [address] [place] ALTAMIR[place]O [phone] Future Procedures Procedure Name Scheduled Date MINO Bilat Mammo Scrn Future Medications Future medication information is unavailable Patient Instructions Pain Management (ED) Oxycodone/Acetaminophen (By mouth) Warfarin (By mouth) Vitamin K in Foods (GEN) Total Hip Replacement (DC)
[2021-10-28 08:52] VITALS: BP 134/85; PULSE 73; RESP 16; TEMP 36.1; O2SAT 97
[2021-10-28] MEDS: PERTUZUMAB 840 MG, TUBING SECONDARY 1 EACH in 0.9 % SODIUM CHLORIDE 250 ml 250 ML 278 MG IVPB (10:16)
[2021-10-28] MEDS: PALONOSETRON 0.25 MG/5 ML inj IV (13:43)
[2021-10-28] MEDS: dexAMETHasone 10 MG in 0.9 % SODIUM CHLORIDE 100 ml 100 ML 404 MG IVPB (13:43)
[2021-10-28] MEDS: FOSAPREPITANT 150 MG inj 150 MG in 0.9 % SODIUM CHLORIDE 250 ml 250 ML 510 MG IVPB (14:06)
[2021-10-28] MEDS: DOCEtaxeL 140 MG, TUBING SECONDARY 1 EACH in 0.9 % SODIUM CHL 250 ml Excel 250 ML 257 MG IVPB (14:45)
--- NOTE | 2021-10-29 08:15 | ONC.NURNOTE ---
Late Entry: Pt tolerated Cycle 1 TCHP well on 10/28/21. VSS. Pt did c/o increased heart rate after dexamethasone. HR up to 103, initial HR 73. Curriculum Advisory Teacher notified Yolis Conley APRN. BP stable 136/74, heart rate regular. Pt states she has this reaction to steroids. Pt given calendar on when to take antiemetics, pt verbalized understanding of plan of care.
== END 2021-10-30 23:59 | disposition home or self-care (01) ==
LOC: CCIC 14:25
PROVIDERS: PCP Family Medicine; Visit Provider Internal Medicine Hematology & Oncology
DX: C50.911 Malignant neoplasm of unspecified site of right female breast (principal); Z51.11 Encounter for antineoplastic chemotherapy; Z17.0 Estrogen receptor positive status [ER+]
CPT/HCPCS: 80053; 85025; 96376; 96377; 96413; 96415; 96417; J2506; J1100; J1453; J2469; J7050; J9045; J9171; J9306; J9355

== ENCOUNTER 2021-11-02 15:00 | Emergency (ER) | payer OTHER, SELFPAY ==
[2021-11-02 15:03] VITALS: BP 152/94; PULSE 102; RESP 16; TEMP 36.9; O2SAT 93; BMI 28.2
--- NOTE | 2021-11-02 15:24 | ED.GENADULT ---
HPI - General Adult General Time Seen by Provider: 15:24 Date Seen: 11/02/21 Chief complaint: Back Injury/Pain Stated complaint: Back Pain Time Seen by Provider: 11/02/21 15:02 Source: patient Mode of arrival: ambulatory Limitations: no limitations History of Present Illness HPI narrative: Melody is a very pleasant 61-year-old female who presents with back pain, that somewhat radiates to her anterior abdomen. She has just started new treatment for breast cancer on the right breast. She had breast cancer on the left. She has worked with Dr. La 0 she in oncology. She has had no fevers or chills, no dysuria, no chest pain shortness of breath. Does not really have anterior abdominal pain but does feel it radiates from her back. No chest pain. No fevers or chills. Related Data Home Medications Medication Instructions Recorded Confirmed acetaminophen 325 mg capsule 325 - 650 mg PO Q4H PRN 10/22/21 10/22/21 amoxicillin 500 mg capsule 2,000 mg PO ONCE 10/22/21 10/22/21 ibuprofen 600 mg tablet 600 mg PO .COMPLEX 10/22/21 10/22/21 levothyroxine 100 mcg tablet 100 mcg PO QDAY 10/22/21 10/22/21 lorazepam 0.5 mg tablet (Ativan) 0.5 mg PO BID 10/22/21 10/22/21 prochlorperazine maleate 10 mg 10 mg PO Q8-12H PRN 10/22/21 10/22/21 tablet carboplatin 10 mg/mL intravenous 11/02/21 solution docetaxel 20 mg/2 mL (Final Conc.) IV 11/02/21 intravenous solution pegfilgrastim 6 mg/0.6 mL mg SUBCUT 11/02/21 (deliverable) wearable subcutaneous injector (Neulasta Onpro) pegfilgrastim 6 mg/0.6 mL 6 mg SUBCUT Q7D 11/02/21 11/02/21 subcutaneous syringe (Neulasta) pertuzumab 420 mg/14 mL (30 mg/mL) 420 mg IV Q21D 11/02/21 11/02/21 intravenous solution trastuzumab 150 mg intravenous 100 mg IV QWEEK 11/02/21 11/02/21 solution Allergies Allergy/AdvReac Type Severity Reaction Status Date / Time latex Allergy Severe Hives Verified 10/22/21 13:42 KIWI Allergy Intermediate ITCHING Uncoded 10/22/21 13:42 Review of Systems Status of ROS: Reports: 6 or more systems reviewed and unremarkable except as noted in History and below [facility] Medical History Invasive ductal carcinoma of left breast, stage 1 Osteopenia Surgical History Status post bilateral salpingo-oophorectomy (BSO) Status post total replacement of hip Social History Smoking Status: Never smoker Do you use any of these nicotine containing products: None How often do you have a drink containing alcohol: monthly or less How often do you have six or more drinks on one occasion: Never AUDIT-C Alcohol total score: 1 Non-prescribed substance use: denies use Exam Narrative: Exam Narrative: Patient is in mild distress and discomfort Vital signs unremarkable other than slightly elevated systolic pressure HEENT is unremarkable Back exam shows no tenderness no CVA pain Abdomen is benign soft nontender ext Extremities are no edema Neurologic nonfocal Skin no rashes over the back or abdomen Const: Vital Signs, click to edit/add: Vital Signs - 24 hr 11/02/21 15:03 11/02/21 16:00 11/02/21 16:30 Temperature 98.4 F Pulse Rate [Left P ulse Oximeter] 102 H 92 95 Respiratory Rate 16 19 17 Blood Pressure [ri ght arm] 152/94 H 135/68 143/73 H Pulse Oximetry 93 94 92 11/02/21 17:00 Temperature Pulse Rate [Left P ulse Oximeter] 89 Respiratory Rate 16 Blood Pressure [ri ght arm] 141/68 H Pulse Oximetry 93 Course Vital Signs Vital signs: Initial Vital Signs Temperature 98.4 F 11/02/21 15:03 Temperature Source Temporal Artery Scan 11/02/21 15:03 Pulse Rate 102 H 11/02/21 15:03 Respiratory Rate 16 11/02/21 15:03 Blood Pressure 152/94 H 11/02/21 15:03 Blood Pressure Mean 113 11/02/21 15:03 Blood Pressure Position Supine 11/02/21 15:03 Pulse Oximetry 93 11/02/21 15:03 Oxygen Delivery Method 11/02/21 15:03 Vital Signs Temperature 98.4 F 11/02/21 15:03 Pulse Rate 102 H 11/02/21 15:03 Respiratory Rate 16 11/02/21 15:03 Blood Pressure 152/94 H 11/02/21 15:03 Pulse Oximetry 93 11/02/21 15:03 Temperature 98.4 F 11/02/21 15:03 Pulse Rate 89 11/02/21 17:00 Respiratory Rate 16 11/02/21 17:00 Blood Pressure 141/68 H 11/02/21 17:00 Pulse Oximetry 93 11/02/21 17:00 Medical Decision Making MDM Narrative Medical decision making narrative: The patient is just started medications for chemotherapy, is under the care of Oncology for breast cancer on the right. She has developed some acute back pain that is worse with motion and spasmodic. She has nor in her urinary tract symptoms. At this point with recommend pain medic management IV fluids, will check her electrolytes and CBC. Morphine for pain. Disposition pending findings above and clinical response. This seems like it is a spasmodic muscle pain in her back, does not appear to have other issues currently. Definitely worse with movement. Worse with sitting causing more pain in her back. Because of the medication she is on however and her epigastric discomfort I am going to get an EKG and a troponin, put on a groundwater monitoring technician for completeness. She reports she does not have an epigastric pain now so will hold off on medication. Certainly this could be related to her chemotherapy medicine and the stress of this relative new diagnosis. She does have a port in her left side. Addendum: The patient has an EKG that by my read shows normal sinus rhythm no acute ST T wave changes. She has reassuring lab studies in terms of electrolytes and CBC, her glucose slightly elevated nonfasting at 1:30 a.m.. She feels better in terms of her spasm in her back after the pain medication. She also received IV fluids. Given her new medications and her the stress of the breast cancer certainly a gastric issue such as gastritis or early ulcer would be possible giving of this pain through to her back and a little bit in her abdomen. she recently did have PET scans and MRI scans of her abdomen and chest and these were unremarkable. Would have her take Prilosec 20 mg daily until she consults with her oncologist next week. Will give her [place] orally now and then on Prilosec as well. Medical Records Medical records reviewed: Yes I reviewed the patient's medical records Lab Data Labs: Lab Results 11/02/21 11/02/21 11/02/21 Range/Units 15:35 15:35 15:35 WBC 7.27 (4.50-11.00) K/uL RBC 4.09 (4.00-5.20) m/uL Hgb 11.7 L (12.0-16.0) gm/dL Hct 35.9 (33.0-51.0) % MCV 88 (80-100) fL MCH 29 (26-34) pg MCHC 33 (32-36) gm/dL RDW Coeff of Ale 12.5 (11.5-15.5) % Plt Count 143 (140-440) K/uL Neut % (Auto) 61.9 (42.0-72.0) % Lymph % (Auto) 18.6 L (20-44) % Spink % (Auto) 8.0 (0.0-11.0) % Eos % (Auto) 2.5 (0.0-7.0) % Baso % (Auto) 1.0 (0.0-3.0) % Neut # (Auto) 4.51 (1.7-7.0) K/uL Lymph # (Auto) 1.40 (0.90-2.90) K/uL Spink # (Auto) 0.60 (0.00-0.90) K/UL Eos # (Auto) 0.18 (0.00-0.50) K/uL Baso # (Auto) 0.07 (0.00-0.30) K/uL Abs Immat Gran (auto) 0.58 H (0.00-0.30) K/uL Sodium 138 (135-149) mmol/L Potassium 3.6 (3.6-5.1) mmol/L Chloride 106 (96-114) mmol/L Carbon Dioxide 27 (20-32) mmol/L BUN 15 (7-30) mg/dL Creatinine 0.7 (0.5-1.5) mg/dL Estimated Creat Clear 73.80 Glucose 130 H (60-115) mg/dL Calcium 8.7 (8.4-10.6) mg/dL Total Bilirubin 0.4 (0.1-1.5) mg/dL Direct Bilirubin 0.3 (0.0-0.5) mg/dL AST 50 H (12-35) U/L ALT 30 (4-35) U/L Alkaline Phosphatase 89 (40-150) U/L Total Protein 6.1 (6.0-8.3) g/dL Albumin 3.7 (3.3-5.0) g/dL Amylase (18-89) U/L Urine Color (Yellow) Urine Appearance (Clear) Urine pH (5.0-8.5) Ur Specific [place] (1.000-1.030) Urine Protein (Negative) Urine Glucose (UA) (Negative) Urine Ketones (Negative) Urine Blood (Negative) Urine Nitrite (Negative) Urine Bilirubin (Negative) Urine Urobilinogen (0.2-1.0) Ur Leukocyte Esterase (Negative) Urine RBC (0-2) Urine WBC (0-5) Ur Squamous Epith Cells (None-Few) Urine Bacteria (None) POC Troponin I (0.01-0.04) ng/ml 11/02/21 11/02/21 11/02/21 Range/Units 15:35 15:35 16:40 WBC (4.50-11.00) K/uL RBC (4.00-5.20) m/uL Hgb (12.0-16.0) gm/dL Hct (33.0-51.0) % MCV (80-100) fL MCH (26-34) pg MCHC (32-36) gm/dL RDW Coeff of Ale (11.5-15.5) % Plt Count (140-440) K/uL Neut % (Auto) (42.0-72.0) % Lymph % (Auto) (20-44) % [place] % (Auto) (0.0-11.0) % Eos % (Auto) (0.0-7.0) % Baso % (Auto) (0.0-3.0) % Neut # (Auto) (1.7-7.0) K/uL Lymph # (Auto) (0.90-2.90) K/uL [place]ink # (Auto) (0.00-0.90) K/UL Eos # (Auto) (0.00-0.50) K/uL Baso # (Auto) (0.00-0.30) K/uL Abs Immat Gran (auto) (0.00-0.30) K/uL Sodium (135-149) mmol/L Potassium (3.6-5.1) mmol/L Chloride (96-114) mmol/L Carbon Dioxide (20-32) mmol/L BUN (7-30) mg/dL Creatinine (0.5-1.5) mg/dL Estimated Creat Clear Glucose (60-115) mg/dL Calcium (8.4-10.6) mg/dL Total Bilirubin (0.1-1.5) mg/dL Direct Bilirubin (0.0-0.5) mg/dL AST (12-35) U/L ALT (4-35) U/L Alkaline Phosphatase (40-150) U/L Total Protein (6.0-8.3) g/dL Albumin (3.3-5.0) g/dL Amylase 49 (18-89) U/L Urine Color Yellow (Yellow) Urine Appearance Clear (Clear) Urine pH 6.0 (5.0-8.5) Ur Specific [place] <= 1.005 (1.000-1.030) Urine Protein Negative (Negative) Urine Glucose (UA) Negative (Negative) Urine Ketones Negative (Negative) Urine Blood Negative (Negative) Urine Nitrite Negative (Negative) Urine Bilirubin Negative (Negative) Urine Urobilinogen 0.2 (0.2-1.0) Ur Leukocyte Esterase Negative (Negative) Urine RBC 0-2 (0-2) Urine WBC 0-2 (0-5) Ur Squamous Epith Cells None (None-Few) Urine Bacteria None (None) POC Troponin I 0.00 L (0.01-0.04) ng/ml Discharge Plan Discharge Clinical Impression: Back pain, Gastric pain Condition: Improved Additional Instructions: Rest, light activity, light diet, [place] as needed for discomfort, Prilosec 20 mg daily until consult with her regular oncologist next week. Return sooner problems concerns difficulty Activity Level: Light activity Discharge Diet: Low Fat/Low Cholesterol Prescriptions: No Action levothyroxine 100 mcg tablet 100 mcg PO QDAY 0RF Label Comments: TAKE 1 TABLET BY MOUTH DAILY lorazepam [Ativan] 0.5 mg tablet 0.5 mg PO BID 0RF Label Comments: 0.5 MG PO BID prochlorperazine maleate 10 mg tablet 10 mg PO Q8-12H PRN (Reason: nausea and vomiting) 0RF ibuprofen 600 mg tablet 600 mg PO .COMPLEX 0RF Rx Instructions: q6h prn acetaminophen 325 mg capsule 325 - 650 mg PO Q4H PRN (Reason: fever or pain) 0RF Rx Instructions: Max of 4000mg in 24 hours. amoxicillin 500 mg capsule 2,000 mg PO ONCE 0RF Label Comments: Takes prior to dental appointment Neulasta Onpro 6 mg/0.6 mL syringe, w/ wearable injector subcut 0RF docetaxel 20 mg/2 mL (Final) solution IV 0RF carboplatin 10 mg/mL solution 0RF pertuzumab 420 mg/14 mL (30 mg/mL) solution 420 mg IV Q21D 0RF Rx Instructions: administer over 30-60 mins trastuzumab 150 mg recon soln 100 mg IV QWEEK 0RF Rx Instructions: administer over 30 mins Neulasta 6 mg/0.6 mL syringe 6 mg subcut Q7D 0RF Follow Up/Referrals: Edson Tate MD [Primary Care Provider] - Stand Alone Forms: MyHealth Info Instructions
[2021-11-02 15:46] LABS: Basophils Absolute Auto 0.07 K/uL (0.00-0.30); Eosinophils Absolute Auto 0.18 K/uL (0.00-0.50); Eosinophils Percent Auto 2.5 % (0.0-7.0); Hematocrit 35.9 % (33.0-51.0); Hemoglobin* 11.7 gm/dL (12.0-16.0); Immature Granulocytes Abs Auto 0.58 K/uL (0.00-0.30); Lymphocytes Percent Auto 18.6 % (20-44); Mean Corpuscular HGB Conc 33 gm/dL (32-36); Mean Corpuscular Hemoglobin 29 pg (26-34); Mean Corpuscular Volume 88 fL (80-100); Neutrophils Absolute Auto 4.51 K/uL (1.7-7.0); Neutrophils Percent Auto 61.9 % (42.0-72.0); Platelet Count* 143 K/uL (140-440); RDW Coefficient of Variation % 12.5 % (11.5-15.5); Red Blood Count 4.09 m/uL (4.00-5.20); White Blood Count* 7.27 K/uL (4.50-11.00)
[2021-11-02] MEDS: MORPHINE 4 MG/ML INJ IVP (15:53)
[2021-11-02] MEDS: 0.9 % SODIUM CHLORIDE 1000 ml 1,000 ML 6000 ML IV (15:54)
[2021-11-02] MEDS: ASPIRIN 81 MG TAB.CHEW 324 MG PO (15:54)
[2021-11-02 16:00] VITALS: BP 135/68; PULSE 92; RESP 19; O2SAT 94
[2021-11-02 16:03] LABS: Albumin* 3.7 g/dL (3.3-5.0)
[2021-11-02 16:04] LABS: Chloride* 106 mmol/L (96-114); Potassium* 3.6 mmol/L (3.6-5.1); Sodium* 138 mmol/L (135-149)
[2021-11-02 16:06] LABS: Alanine Aminotransferase* 30 U/L (4-35); Alkaline Phosphatase* 89 U/L (40-150); Aspartate Amino Transferase* 50 U/L (12-35); Bilirubin Direct* 0.3 mg/dL (0.0-0.5); Bilirubin Total* 0.4 mg/dL (0.1-1.5); Creatinine* 0.7 mg/dL (0.5-1.5); Estimated Glomerular Filt Rate 98.95; Total Protein* 6.1 g/dL (6.0-8.3)
[2021-11-02 16:07] LABS: Amylase* 49 U/L (18-89); Blood Urea Nitrogen* 15 mg/dL (7-30); Calcium* 8.7 mg/dL (8.4-10.6); Carbon Dioxide* 27 mmol/L (20-32); Glucose* 130 mg/dL (60-115)
--- NOTE | 2021-11-02 16:08 | ED.NURSE ---
POC trop 0.00.
[2021-11-02 16:10] LABS: Slide Review Reflex No
[2021-11-02 16:30] VITALS: BP 143/73; PULSE 95; RESP 17; O2SAT 92
[2021-11-02 16:53] LABS: Appearance Urine Clear (Clear); Bilirubin Urine Negative (Negative); Blood Urine Negative (Negative); Color Urine Yellow (Yellow); Glucose Urine Negative (Negative); Ketones Urine Negative (Negative); Leukocyte Esterase Urine Negative (Negative); Nitrite Urine Negative (Negative); Protein Urine Negative (Negative); Specific Gravity Urine <= 1.005 (1.000-1.030); Urobilinogen Urine 0.2 (0.2-1.0)
[2021-11-02 17:00] VITALS: BP 141/68; PULSE 89; RESP 16; O2SAT 93
[2021-11-02 17:07] LABS: RBC Urine 0-2 (0-2); WBC Urine 0-2 (0-5)
[2021-11-02] MEDS: OMEPRAZOLE 20 MG CAPSULE DR PO (17:08)
[2021-11-02] MEDS: HYDROCODONE/ACETAMIN 7.5-325 TABLET 1 TAB PO (17:09)
== END 2021-11-02 17:27 ==
LOC: ED 17:13
PROVIDERS: Emergency Provider Family Medicine; PCP Family Medicine
DX: M54.9 Dorsalgia, unspecified (principal); R10.9 Unspecified abdominal pain; C50.911 Malignant neoplasm of unspecified site of right female breast
CPT/HCPCS: 96374; 36415; 80048; 80076; 81001; 82150; 84484; 85025; 93005; 99284; A9270; J2270; J7030

== ENCOUNTER 2021-11-24 08:30 | Outpatient (RCR) | payer OTHER, SELFPAY ==
--- NOTE | 2021-11-14 18:12 | ONC.NURNOTE ---
Authorization: User: Sara Thompson Date: 10/17/21 12:50 Type: Eligibility Determination Note... Request received from [facility] for prior authorization of Docetaxel J9171, Carboplatin J9045, Herceptin J9355, Pertuzumab J9306, Aloxi J2469, Emend J1453 and Neulasta J2506. Per [facility] no prior authorization is required for Docetaxel, Aloxi and Emend. Services are based on medical necessity. Prior authorization is required for Carboplatin, Hercetin, Pertuzumab and Neulasta. Call Ref #[id number]. Per [facility] no prior authorization is required for Carboplatin, Herceptin and Neulasta. Services are based on medical necessity. Prior authorization is required for Pertuzumab. Call Ref #[id number]. Pertuzumab has been approved from 10/17/2021 through 10/17/2022. Authorization #[id number]
[2021-11-18 08:19] LABS: Hematocrit 35.6 % (33.0-51.0); Hemoglobin* 11.7 gm/dL (12.0-16.0); Immature Granulocytes Abs Auto 0.01 K/uL (0.00-0.30); Lymphocytes Percent Auto 34.3 % (20-44); Mean Corpuscular HGB Conc 33 gm/dL (32-36); Mean Corpuscular Hemoglobin 29 pg (26-34); Mean Corpuscular Volume 88 fL (80-100); Monocytes Percent Auto 9.2 % (0.0-11.0); Neutrophils Percent Auto 55.3 % (42.0-72.0); Platelet Count* 287 K/uL (140-440); RDW Coefficient of Variation % 13.6 % (11.5-15.5); Red Blood Count 4.04 m/uL (4.00-5.20); White Blood Count* 4.02 K/uL (4.50-11.00)
[2021-11-18 08:29] LABS: Slide Review Reflex No
[2021-11-18 08:50] LABS: Chloride* 109 mmol/L (96-114)
[2021-11-18 08:51] LABS: Albumin* 3.8 g/dL (3.3-5.0); Potassium* 3.5 mmol/L (3.6-5.1); Sodium* 140 mmol/L (135-149)
[2021-11-18 08:54] LABS: Alanine Aminotransferase* 39 U/L (4-35); Alkaline Phosphatase* 94 U/L (40-150); Aspartate Amino Transferase* 35 U/L (12-35); Bilirubin Total* 0.4 mg/dL (0.1-1.5); Blood Urea Nitrogen* 13 mg/dL (7-30); Calcium* 8.6 mg/dL (8.4-10.6); Carbon Dioxide* 23 mmol/L (20-32); Creatinine* 0.7 mg/dL (0.5-1.5); Estimated Glomerular Filt Rate 99 ml/min; Glucose* 122 mg/dL (60-115); Total Protein* 6.3 g/dL (6.0-8.3)
[2021-11-18] MEDS: 0.9 % SODIUM CHLORIDE 250 ml IV (09:27)
[2021-11-18] MEDS: SODIUM CHLORIDE 0.9 % (FLUSH) 10 ML SYRINGE IVF ×2 (09:27→14:41)
[2021-11-18] MEDS: PERTUZUMAB 420 MG, TUBING SECONDARY 1 EACH in 0.9 % SODIUM CHLORIDE 250 ml 250 ML 528 MG IVPB (09:53)
[2021-11-18] MEDS: dexAMETHasone 10 MG in 0.9 % SODIUM CHLORIDE 100 ml 100 ML 404 MG IVPB (11:41)
[2021-11-18] MEDS: PALONOSETRON 0.25 MG/5 ML inj IV (11:41)
[2021-11-18] MEDS: FOSAPREPITANT 150 MG inj 150 MG in 0.9 % SODIUM CHLORIDE 250 ml 250 ML 510 MG IVPB (12:03)
[2021-11-18] MEDS: DOCEtaxeL 135 MG, TUBING SECONDARY 1 EACH in 0.9 % SODIUM CHL 250 ml Excel 250 ML 256.75 MG IVPB (12:39)
[2021-11-18] MEDS: HEPARIN 500 UNIT/5 ML SYRINGE IVF (14:41)
[2021-11-24 08:34] VITALS: BP 137/71; PULSE 83; RESP 16; TEMP 36.1; O2SAT 97
[2021-11-24] MEDS: SODIUM CHLORIDE 0.9 % (FLUSH) 10 ML SYRINGE IVF (08:42)
[2021-11-24] MEDS: 0.9 % SODIUM CHLORIDE 1000 ml 1,000 ML IV (08:42)
== END 2021-11-30 23:59 | disposition home or self-care (01) ==
LOC: CCIC 08:30
PROVIDERS: Clinical Nurse Specialist; PCP Family Medicine; Visit Provider Internal Medicine Hematology & Oncology
DX: C50.911 Malignant neoplasm of unspecified site of right female breast (principal)
CPT/HCPCS: 36415; 36591; 80053; 85025; 96360; 96376; 96377; 96413; 96415; 96417; 99212; 99215; J2506; J1100; J1453; J1642; J2469; J7030; J7050; J9045; J9171; J9306; J9355

== ENCOUNTER 2021-12-04 08:26 | Outpatient (CLI) | payer OTHER, SELFPAY ==
--- NOTE | 2021-12-04 08:30 | CRLHL7_ITS ---
For Patients: As a result of the Century Cures Act, medical imaging exams and procedure reports are released immediately into your electronic medical record. You may view this report before your referring provider. If you have questions, please contact your health care provider. INDICATION: Evaluate Port Placement TECHNIQUE: Chest 1 view COMPARISON: 10/23/2021 FINDINGS: Indwelling catheter is present with the tip in the mid SVC. Lungs clear. No pneumothorax. Mediastinum similar. IMPRESSION: Similar appearance of the chest. Dictated by Rakesh Mathew MD @ 12/04/2021 9:21:15 AM (Electronically Signed)
== END 2021-12-04 08:27 | disposition home or self-care (01) ==
LOC: RAD 08:27
PROVIDERS: PCP Family Medicine; Visit Provider Surgery
DX: Z95.828 Presence of other vascular implants and grafts (principal)
CPT/HCPCS: 71045

== ENCOUNTER 2021-12-15 09:50 | Day surgery (SDC) | payer OTHER, SELFPAY ==
[2021-12-15] VITALS (7 sets, daily range): BP systolic 119–128; BP diastolic 55–88; PULSE 70–88; RESP 12–16; TEMP 36.1–36.4; O2SAT 95–99; BMI 26.6
--- NOTE | 2021-12-15 10:22 | CRLHL7_ITS ---
For Patients: As a result of the Century Cures Act, medical imaging exams and procedure reports are released immediately into your electronic medical record. You may view this report before your referring provider. If you have questions, please contact your health care provider. Indication: INTRA OP PORTACATH REPLACEMENT Technique: AP fluoroscopic view of the chest. Fluoroscopic time 40.6 seconds. IMPRESSION: Fluoroscopic guidance for Port-A-Cath placement. Dictated by Rakesh Mathew MD @ 12/15/2021 2:31:13 PM (Electronically Signed)
[2021-12-15] MEDS: LACTATED RINGERS 1000 ML 1,000 ML 100 ML IV (10:30)
[2021-12-15] MEDS: CEFAZOLIN 1 GM in 0.9 % SODIUM CHLORIDE Mini-bag 100 ML IVPB (10:56)
[2021-12-15] MEDS: LIDOCAINE 1% 20 ML VIAL INJECTION (11:30)
[2021-12-15] MEDS: 0.9% SODIUM CHL 50 ML VIAL INJECTION (11:30)
[2021-12-15] MEDS: BUPIVACAINE 0.5% 30 ML INJECTION (11:30)
[2021-12-15] MEDS: HEPARIN 500 UNIT/5 ML SYRINGE IVF (11:30)
--- NOTE | 2021-12-15 11:40 | CRLHL7_ITS ---
For Patients: As a result of the Century Cures Act, medical imaging exams and procedure reports are released immediately into your electronic medical record. You may view this report before your referring provider. If you have questions, please contact your health care provider. INDICATION: Port catheter placement TECHNIQUE: Chest radiograph 1 view COMPARISON: 12/04/2021 FINDINGS: The sensitivity and specificity of the exam are moderately limited by the patient`s body habitus. Mediastinum: The mediastinum is normal in appearance. The heart silhouette is normal in size and morphology. The left Port-A-Cath has been revised with the new catheter tip courses through the left IJ and positioned in the SVC. Lung: Both lungs are unremarkable in appearance. No sign of pleural effusion seen. No pneumothorax is identified. Bone and Soft tissue: Unremarkable for age. IMPRESSION: 1. The left Port-A-Cath has been revised with the new catheter tip courses through the left IJ and positioned in the SVC. Dictated by Gonzalo Barrera MD @ 12/15/2021 1:12:10 PM Dictated by: Gonzalo Barrera MD @ 12/15/2021 13:12:12 (Electronically Signed)
--- NOTE | 2021-12-15 11:56 | PM.GSPRC ---
Operative Note Date of procedure: 12/15/21 Type of Procedure: 1. Left subclavian port removal 2. Left IJ port placement under ultrasound and fluoroscopic guidance Procedure Description: After discussing the risks and benefits of the procedure, the patient signed informed consent.? The operative site was marked and the patient was brought to the operating room and placed on the operating table in supine position.? Care was taken to pad the patient's pressure points.?? The patient was then given sedation by anesthesia.?? The operative site was then prepped and draped in the usual sterile fashion.? A time-out was then performed. Local anesthetic was injected into the skin and subcutaneous tissue overlying the left-sided port. The old incision was incised. Dissection was taken down to the subcutaneous fat until the port itself was encountered. The hub was identified and the catheter then identified as well. This was gently pulled from the incision and removed from the subclavian vein intact. Pressure was held at the subclavian vein insertion site for 5 minutes. There was no bleeding noted from the tract. Attention was then turned to removing the port itself. There was only 1 stitch noted, medially, consistent with the prior operative report. This was grasped and removed with the port. The port was then removed intact. The patient's left internal jugular vein was visualized using ultrasound. Local anesthetic was injected into the skin overlying the vein. This was accessed percutaneously using ultrasound guidance. Using Seldinger technique, a guidewire was threaded through the needle. A skin mati was made around the wire. Next, local anesthetic was injected into the skin below the clavicle and along the proposed tract to the neck incision. A tunneler was then used to thread the catheter from the prior chest wall pocket to the neck incision. Once this was done fluoroscopy was brought into the field. Over the wire the tract was dilated using fluoroscopy. The wire and the dilator were then removed leaving the sheath in the vein. Through this, the catheter was threaded. Using fluoroscopy, the catheter was positioned into the distal SVC. The catheter was noted to flush and aspirate easily. The catheter was then connected to the port. Pocket was irrigated with Betadine to prevent infection since this was a reoperative site. The Betadine was allowed to sit in the pocket for 3 minutes and then was irrigated with saline. The port was placed in the pocket and secured in place with 2 0 Prolene sutures. It was noted to flush and aspirate easily. This was then locked with heparinized saline. The skin was closed with absorbable suture. Glue was then applied Instrument sponge and needle counts were correct at the end of the case. The patient was woken and taken to the PACU in stable condition. ? The patient tolerated the procedure well. Findings: Left subclavian port removed without difficulty intact Left IJ port placed Anesthesia: MAC Surgeon: Natacha Gunter MD Estimated blood loss (mL): 5 Condition: stable Disposition: same day
--- NOTE | 2021-12-15 12:07 | W.ANESCHARGE ---
Anesthesia Charges Start Date/Time Anesthesia Start Date: 12/15/21 Anesthesia Start Time: 10:46 Stop Date/Time Anesthesia Stop Date: 12/15/21 Anesthesia Stop Time: 11:59 Summary Emergency: No
[2021-12-15] MEDS: HYDROCODONE-ACETAMIN 5-325 MG 1 TAB PO (12:40)
--- NOTE | 2021-12-15 12:52 | W.ANESCHARGE ---
Anesthesia Charges Start Date/Time Anesthesia Start Date: 12/15/21 Anesthesia Start Time: 10:46 Stop Date/Time Anesthesia Stop Date: 12/15/21 Anesthesia Stop Time: 11:59 Summary Emergency: No
== END 2021-12-15 13:43 | disposition home or self-care (01) ==
PROVIDERS: PCP Family Medicine; Visit Provider Surgery
PROC: (CPT 36590; principal; 2021-12-15 11:15)
PROC: (CPT 36590; 2021-12-15 11:15)
DX: Z45.2 Encounter for adjustment and management of vascular access device (principal); C50.911 Malignant neoplasm of unspecified site of right female breast; C77.3 Secondary and unspecified malignant neoplasm of axilla and upper limb lymph nodes; Z17.0 Estrogen receptor positive status [ER+]
CPT/HCPCS: 36590; 36561; 532; 71045; 76000; A9270; C1788; J0690; J1642; J2250; J2370; J2405; J2704; J3010; J3490; J7120

== ENCOUNTER 2022-02-16 12:53 | Outpatient (CLI) | payer OTHER, SELFPAY ==
--- NOTE | 2022-02-16 13:00 | CRLHL7_ITS ---
For Patients: As a result of the Century Cures Act, medical imaging exams and procedure reports are released immediately into your electronic medical record. You may view this report before your referring provider. If you have questions, please contact your health care provider. BILATERAL BREAST MRI WITHOUT AND WITH GADOLINIUM, 02/16/2022 CLINICAL HISTORY: Evaluate response to neoadjuvant chemotherapy. RIGHT breast invasive ductal carcinoma with a metastatic RIGHT axillary lymph nodes diagnosed October 2021 and now status post neoadjuvant chemotherapy. Previous history of treated LEFT breast cancer (chemotherapy, lumpectomy and radiation therapy in 2013). INDICATION FOR BREAST MRI: Evaluate response to neoadjuvant chemotherapy. COMPARISON STUDIES: Diagnostic RIGHT mammogram and ultrasound 09/30/2021 and images from ultrasound-guided RIGHT breast and axillary lymph node biopsy and post biopsy mammogram 10/02/2021; breast MRI 10/07/2021. CONTRAST: 20 mL Dotarem. TECHNIQUE: The patient was positioned prone using a breast coil. Multiple imaging sequences were obtained using 1-1.5 mm thick slices with no gap. The image sequences include T2-weighted STIR in the axial plane, T1-weighted nonfat-saturated gradient echo in the axial plane, pre- and post-contrast T1-weighted FLASH 3D with fat suppression in the axial plane, and T1-weighted FLASH high resolution 3D with fat suppression in the sagittal plane. Image post-processing was performed on a [employer] workstation. Complex 3D rendering including maximum intensity projections (MIPS) and volumetric renderings were obtained to optimize visualization of the extent of pathology and relationship to the nipple, skin, and chest wall. This aids in determining feasibility of breast conservation surgery. Subtraction, multiplanar reconstruction, mean curve determination, and angiogenesis mapping were also performed. The study was technically adequate. FINDINGS: Amount of Fibroglandular Tissue: Scattered fibroglandular tissue. Breast Background Enhancement: Mild. RIGHT Breast: There is susceptibility artifact in the upper outer breast at 10 o`clock from the marking clip at the site of biopsy-proven malignancy. There is no residual mass or abnormal enhancement at the site of the clip or elsewhere within the breast. LEFT Breast: There are postsurgical changes in the upper outer breast. No suspicious mass or enhancement within the breast. Lymph Nodes: There is susceptibility artifact within a lymph node in the RIGHT axilla. The biopsy-proven metastatic lymph node and all other visualized RIGHT axillary lymph nodes are now morphologically normal. No abnormal morphology lymph nodes on the LEFT. Other Findings: There is susceptibility artifact from a chest port in the upper inner LEFT breast IMPRESSIONS AND RECOMMENDATIONS: 1. Excellent imaging response to neoadjuvant chemotherapy. No residual mass or abnormal enhancement in the RIGHT breast. The biopsy-proven metastatic RIGHT axillary lymph node is visualized with a clip in place. All visualized RIGHT axillary lymph nodes are now normal in morphology. 2. No MRI evidence of malignancy in the LEFT breast. BI-RADS Category 1: Negative Dictated by Yodit Willson MD @ 02/17/2022 9:31:55 AM JR/Dictated by: Yodit Willson MD @ 02/17/2022 9:31:00 AM (Electronically Signed)
== END 2022-02-16 12:54 | disposition home or self-care (01) ==
PROVIDERS: PCP Family Medicine; Visit Provider Surgery
DX: C50.911 Malignant neoplasm of unspecified site of right female breast (principal)
CPT/HCPCS: 77049; A9575

== ENCOUNTER 2022-02-23 15:10 | Outpatient (CLI) | payer OTHER, SELFPAY | END 2022-02-23 15:11 | disposition home or self-care (01) | LOC: RAD 15:10 | PROVIDERS: PCP Family Medicine; Visit Provider Internal Medicine Hematology & Oncology | DX: C50.911 Malignant neoplasm of unspecified site of right female breast (principal); I34.0 Nonrheumatic mitral (valve) insufficiency | CPT/HCPCS: 93306 ==

== ENCOUNTER 2022-03-16 15:05 | Outpatient (CLI) | payer OTHER, SELFPAY ==
[2022-03-16 17:47] LABS: TSH With Reflex to FT4* 0.156 uIU/mL (0.270-4.200)
[2022-03-16 19:39] LABS: Free T4 Free Thyroxine* 1.26 ng/dL (0.70-1.85)
== END 2022-03-16 15:06 | disposition home or self-care (01) ==
LOC: LONREF 15:06
PROVIDERS: PCP Family Medicine; Visit Provider Family Medicine
DX: E03.9 Hypothyroidism, unspecified (principal)
CPT/HCPCS: 84439; 84443

== ENCOUNTER 2022-03-24 07:43 | Day surgery (SDC) | payer OTHER, SELFPAY ==
[2022-03-24] VITALS (22 sets, daily range): BP systolic 100–144; BP diastolic 49–73; PULSE 70–90; RESP 14–16; TEMP 36.2–37.1; O2SAT 91–98; BMI 25.4
[2022-03-24] MEDS: LACTATED RINGERS 1000 ML 1,000 ML 100 ML IV ×2 (08:00→11:01)
[2022-03-24 08:20] LABS: Basophils Absolute Auto 0.03 K/uL (0.00-0.30); Basophils Percent Auto 0.6 % (0.0-3.0); Eosinophils Absolute Auto 0.15 K/uL (0.00-0.50); Eosinophils Percent Auto 3.2 % (0.0-7.0); Hematocrit 37.4 % (33.0-51.0); Lymphocytes Absolute Auto 1.42 K/uL (0.90-2.90); Mean Corpuscular HGB Conc 32 gm/dL (32-36); Mean Corpuscular Hemoglobin 30 pg (26-34); Mean Corpuscular Volume 94 fL (80-100); Monocytes Percent Auto 5.5 % (0.0-11.0); Neutrophils Absolute Auto 2.87 K/uL (1.7-7.0); Neutrophils Percent Auto 60.7 % (42.0-72.0); Platelet Count* 174 K/uL (140-440); RDW Coefficient of Variation % 13.2 % (11.5-15.5); Red Blood Count 3.98 m/uL (4.00-5.20); White Blood Count* 4.73 K/uL (4.50-11.00)
[2022-03-24 08:26] LABS: Slide Review Reflex No
[2022-03-24 08:41] LABS: Potassium* 3.3 mmol/L (3.6-5.1)
--- NOTE | 2022-03-24 09:00 | CRLHL7_ITS ---
For Patients: As a result of the Century Cures Act, medical imaging exams and procedure reports are released immediately into your electronic medical record. You may view this report before your referring provider. If you have questions, please contact your health care provider. HISTORY: 61-year-old female. Right breast cancer. TECHNIQUE: 0.76 millicuries of [id number] sulfur colloid was injected in the right breast for sentinel lymph node localization. Images were not obtained. Dictated by Freedom Szymanski MD @ 03/24/2022 9:36:44 AM (Electronically Signed)
--- NOTE | 2022-03-24 09:15 | CRLHL7_ITS ---
For Patients: As a result of the Cures Act, medical imaging exams and procedure reports are released immediately into your electronic medical record. You may view this report before your referring provider. If you have questions, please contact your health care provider. RIGHT AXILLARY LYMPH NODE WIRE LOCALIZATION USING ULTRASOUND GUIDANCE CLINICAL HISTORY: METASTATIC RIGHT BREAST CANCER STATUS POST ADJUVANT CHEMOTHERAPY LATERALITY: Right axilla LESION: Previously biopsied metastatic right axillary lymph node LOCALIZATION WIRE: [place] hookwire. TECHNIQUE: The localization wire was placed using real-time ultrasound guidance with image documentation. CONSENT and TIME OUT: The procedure, risks, and alternatives were explained to the patient and a consent was signed. [place] Protocol was followed including pre-procedure verification that relevant information/documentation was available, reviewed and properly matched to the patient; consent accurate and complete; and equipment and supplies available. Time Out was conducted just prior to starting procedure to verify the four required elements: patient identity, correct side/site marked (if applicable), procedure, relevant images/results properly labeled and displayed (if applicable). PROCEDURE: The skin was prepped with ChloraPrep and 8 cc of 1% lidocaine was injected for local anesthesia. The localization wire was placed within or near the targeted right axillary lymph node lesion using ultrasound guidance. The patient tolerated the procedure well. PROXIMITY OF WIRE TO LESION: The wires present within the biopsy lymph node adjacent to the ribbon clip. IMPRESSION: Successful right axillary lymph node wire localization. ACR not applicable Dictated by Rakesh Mathew MD @ 03/24/2022 10:17:33 AM (Electronically Signed)
--- NOTE | 2022-03-24 09:24 | SUR.PREOP ---
[facility] HERE AT 0845 FOR INJECTION. ULTRA SOUND HERE TO TAKE PATIENT AT 9:15.
--- NOTE | 2022-03-24 10:20 | PM.GSPRC ---
Operative Note Date of procedure: 03/24/22 Type of Procedure: 1. Bilateral mastectomy 2. Right axillary sentinel node biopsy 3. Targeted biopsy right axillary lymph node with wire localization Procedure Description: After discussion of risks and benefits, the patient was brought to the operating room and placed supine on the operating table. General anesthesia was induced. 1 hr to incision, radiotracer was injected into the dermis the right breast just above the areola. 10 min prior to the incision I injected 3 ml isosulfan blue dye into the dermis above the areola. This was massaged for 3 min. Once this was completed, the area was prepped and draped sterilely. A time-out was then completed. We began on the right side. I had previously marked out transverse incision in pre induction with the patient sitting up. Her breasts were noted to be asymmetric as she had had a prior lumpectomy and radiation to the left side. I took care to ensure that her incisions remain symmetric and were appropriate when she was laying down in the OR. Using these markings, I then created an ellipse with a skin knife. Subcutaneous flaps were created using cautery. Care was taken to stay in the a vascular plane between the breast tissue in the subcutaneous tissue. Dissection was taken superiorly to the clavicle, medially to the sternum, inferiorly to the superior aspect of the rectus sheath, and laterally to the latissimus. Once the flaps were created, the breast was taken off of the chest wall, taking the pectoralis fascia with. Small bleeding vessels were cauterized. This was marked with a stitch at the superior aspect and sent for margins which were negative, though the posterior aspect, which was abutting the muscle, was noted to be close on gross inspection. Attention was then turned to the sentinel lymph node biopsy. The probe was brought into the field. The breast was used to retract the axilla anteriorly. A strong signal was noted in the axilla. The axillary fat was already exposed. There were small blue lymphatics noted. The probe was used to identify a hot node which also happened to be the wire localize node. The wire was encountered and pulled through the skin. The node was then carefully dissected free of the surrounding fat using cautery. The signal was measured ex vivo and was found to be only 78. The node was not noted to be blue. Because the reading was much smaller than the remainder of the axilla, this was sent as right axillary wire localize node. Radiographically it contained the wire as well as the clip. This was sent for frozen section. Frozen section returned negative for residual tumor, however there were changes suggesting response to chemotherapy. The probe was placed back in the axilla. There was a strong signal. A node was carefully dissected out. This node was not blue. Ex vivo it measured 971. This was sent as sentinel node 1. The probe was placed back into the axilla and 3 additional nodes were found, all having point strong signals of up to 1000. None of these nodes were blue. Once the 4th sentinel lymph node was removed, the probe was placed back into the wound bed and there was no further signal. The wound bed was examined for hemostasis. It appeared excellent. The frozen section on all 5 nodes returned negative. I then turned my attention to the left side after changing gloves and instruments. An identical, though slightly smaller incision given the smaller size of the left breast, was made and dissection was taken down into the subcutaneous tissue creating skin flaps superiorly to the clavicle, medially to the sternum, inferiorly to the superior rectus sheath and laterally to the latissimus. Care was taken not to violate the patient's port capsule, as well as to avoid making the flaps too thin given the patient's prior radiation history.. The breast tissue was then removed from the pectoralis muscle, taking the pectoralis fascia. Hemostasis was achieved with cautery. A stitch was placed to orient the specimen and it was sent to pathology. On gross examination the patient's scar from her prior lumpectomy was noted without any obvious new mass. Bilateral 15 [place] chest wall drains were placed and secured in place with nylon suture. The wounds were then closed with interrupted Vicryl dermal suture and Monocryl running subcuticular suture. Sterile dressings were applied. Instrument sponge and needle counts were correct. The patient tolerated the procedure well. ? Sterile dressings were then applied. ? The patient was then woken and transported to the recovery area in stable condition. ? The patient tolerated the procedure well. Findings: Margins grossly negative on right breast with no gross residual tumor noted. Right axillary wire localize node negative on frozen section [place] lymph nodes 1 through 4 negative on frozen section Left breast without obvious malignancy though scar from prior lumpectomy. Per committee on Cancer operative standards: [place] node biopsy was performed using Isosulfan blue dye and radiotracer; all identified blue and significantly radioactive nodes as well as any additional suspicious nodes were removed. The preoperatively-biopsied lymph node was removed and confirmed radiographically by the presence of the marking clip and histologically by biopsy site changes. Anesthesia: GETA Surgeon: Natacha Gunter MD Estimated blood loss (mL): 50 Condition: stable Disposition: PACU
--- NOTE | 2022-03-24 10:21 | CRLHL7_ITS ---
For Patients: As a result of the Cures Act, medical imaging exams and procedure reports are released immediately into your electronic medical record. You may view this report before your referring provider. If you have questions, please contact your health care provider. RIGHT BREAST SPECIMEN RADIOGRAPH CLINICAL HISTORY: RIGHT breast cancer with metastatic adenopathy. COMPARISON: Breast MRI 02/16/2022. FINDINGS: Specimen contains the localization wire and previously biopsied lymph node with biopsy clip. IMPRESSION: Specimen contains the wire, lymph node and biopsy clip. ACR not applicable Dictated by Rakesh Mathew MD @ 03/24/2022 1:06:16 PM jj/Dictated by: Rakesh Mathew MD @ 03/24/2022 1:06:00 PM (Electronically Signed)
[2022-03-24] MEDS: CEFAZOLIN 2 GM INJ IVP (10:22)
[2022-03-24] MEDS: ISOSULFAN BLUE 5 ML VIAL INJECTION (10:30)
--- NOTE | 2022-03-24 11:12 | P.NB_ITS ---
Nerve Block Nerve Block Date Seen: 03/24/22 Type of block requested by surgeon for post-operative analgesia: intercostal and intercostal add on Side: bilateral Time out performed: Yes Verification of patient name: Yes Verification of date of : Yes Site marking: site marked Name of person performing procedure: Miko Continuous monitoring Was continuous monitoring of O2 sat, B/P, satellite project site monitor, recorded every 15 minutes?: Yes Procedure Checklist: sterile prep, needles and gloves Ultrasound guided. Images saved: Yes Medications given in 5ml increments after negative aspiration: Marcaine %: 0.25 mL: 30 Needle gauge: 20 and Exparel mL: 20 Needle gauge: 20 Patient tolerated procedure well: Yes Block Charges Block Charge (with Pro Fee): Intercostal Nerve Block (Bilateral) Use of Ultrasound Machine for Block: Yes- US Guidance/pain block
--- NOTE | 2022-03-24 14:25 | W.ANESCHARGE ---
Anesthesia Charges Start Date/Time Anesthesia Start Date: 03/24/22 Anesthesia Start Time: 10:12 Stop Date/Time Anesthesia Stop Date: 03/24/22 Anesthesia Stop Time: 14:18 Summary Emergency: No
--- NOTE | 2022-03-24 14:26 | W.ANESCHARGE ---
Anesthesia Charges Start Date/Time Anesthesia Start Date: 03/24/22 Anesthesia Start Time: 10:12 Stop Date/Time Anesthesia Stop Date: 03/24/22 Anesthesia Stop Time: 14:18 Summary Emergency: No
--- NOTE | 2022-03-24 17:45 | PC.NURSE ---
PATIENT TO FLOOR FROM PACU AROUND 1450, DROWSY BUT ALERT AND ORIENTED, TARUN WRAP TO CHEST INTACT NO DRAINAGE NOTED, 2 JPS PRESENT ONE LEFT SIDE ON RIGHT SIDE PATENT WITH BLOODY DRAINAGE RETURNED, HUSABND AT BEDSIDE AND EDUCATED ON EMPTYING AND RECORDING DRAIN OUTPUT, VERBALIZED UNDERSTANDING, IV PATENT, LUNG SOUNDS CLEAR, BOWEL SOUNDS ACTIVE, DECLINING NAUSEA NO VOMITING, EXPRESSING PAIN IN CHEST A TINGLING INITIALLY THAT HAS NOW MOVED TO A STINGING, DECLINING PRN MEDICATION AT THIS TIME, GOING TO TRY A REGULAR DIET FOR SUPPER, UP TO BATHROOM MIN ASSIST, ABLE TO VOID RETURNING TEAL COLOR URINE. RIGHT ARM RESTRICTION.
[2022-03-24] MEDS: LACTATED RINGERS 1000 ML 1,000 ML 75 ML IV (18:11)
[2022-03-24] MEDS: HYDROCODONE-ACETAMIN 5-325 MG 1 TAB PO ×2 (20:27→23:27)
[2022-03-25] MEDS: HYDROCODONE-ACETAMIN 5-325 MG 1 TAB PO ×2 (02:51→07:49)
[2022-03-25 03:00] VITALS: BP 158/83; PULSE 83; RESP 18; TEMP 36.8; O2SAT 94
--- NOTE | 2022-03-25 06:25 | PC.NURSE ---
Shift note: Surgical site covered by TARUN wraps, no drainage noted. AMBROSIO bilat bloody with drainage, pain 4-6/10, treated per eMAR and ice to the OP site with relief. Pt is voiding, passing gas, ambulates independently, no c/o nausea, tolerates PO food and fluids.
[2022-03-25 07:00] VITALS: BP 146/77; PULSE 87; RESP 18; TEMP 36.7; O2SAT 92
--- NOTE | 2022-03-25 07:58 | PM.DS1 ---
DS: Providers Provider Date Seen: 03/25/22 Primary care physician: Edson Tate MD Attending Physician on discharge: Natacha Gunter MD DS: Diagnosis Discharge Diagnosis (1) Invasive ductal carcinoma of right breast, stage 2: Status: Acute Problem details: Dx 08/2021 (2) Hypothyroidism: Status: Acute (3) Generalized anxiety disorder: Status: Acute DS: Summary Hospital Course Hospital Course: The patient is a 61-year-old female who underwent bilateral mastectomy and right axillary lymph node biopsy for right-sided ERPR positive HER2 positive invasive ductal carcinoma after receiving neoadjuvant chemotherapy. She did well postoperatively, had pain which was controlled on oral pain meds, understood the postoperative teaching instructions and was ambulating without difficulty. She was deemed safe for discharge home on postop day 1. Status at Discharge Overall status at discharge: patient is back to baseline Time Spent with Patient Time attestation: Total time spent providing and/or coordinating discharge services: Time spent: Less than 30 minutes Exam Narrative: Exam Narrative: General: No acute distress CV: Regular rate and rhythm Respiratory: Breathing nonlabored on room air Chest: Incisions are clean and dry without erythema or ecchymosis. Left-sided drain had 60 mL out since surgery. This is serosanguineous. Right side with 90 mL out since surgery. This is also serosanguineous. Const: Vital Signs, click to edit/add: Vital Signs - 24 hr 03/24/22 08:10 03/24/22 14:15 03/24/22 14:20 Temperature 98.5 F 97.8 F Pulse Rate 74 87 81 Pulse Rate [Left P ulse Oximeter] Respiratory Rate 16 16 16 Blood Pressure 140/73 H 105/51 L 105/57 L Blood Pressure [Le ft Arm] Pulse Oximetry 98 97 98 Oxygen Delivery Me thod Room Air Nasal Cannula Oxygen Flow Rate 3 03/24/22 14:25 03/24/22 14:30 03/24/22 14:35 Temperature Pulse Rate 83 84 87 Pulse Rate [Left P ulse Oximeter] Respiratory Rate 16 16 16 Blood Pressure 102/57 L 101/57 L 104/60 Blood Pressure [Le ft Arm] Pulse Oximetry 98 98 94 Oxygen Delivery Me thod Room Air Oxygen Flow Rate 03/24/22 14:40 03/24/22 14:44 03/24/22 14:55 Temperature 98.8 F 97.9 F Pulse Rate 77 80 84 Pulse Rate [Left P ulse Oximeter] Respiratory Rate 16 16 14 Blood Pressure 104/58 L 100/56 L Blood Pressure [Le ft Arm] 112/59 L Pulse Oximetry 95 96 Oxygen Delivery Me thod Room Air Oxygen Flow Rate 03/24/22 15:00 03/24/22 15:15 03/24/22 15:30 Temperature Pulse Rate Pulse Rate [Left P ulse Oximeter] 74 70 70 Respiratory Rate 14 14 14 Blood Pressure Blood Pressure [Le ft Arm] 117/65 112/58 L 116/62 Pulse Oximetry 94 95 95 Oxygen Delivery Me thod Room Air Room Air Room Air Oxygen Flow Rate 03/24/22 15:45 03/24/22 16:00 03/24/22 16:30 Temperature 97.9 F Pulse Rate Pulse Rate [Left P ulse Oximeter] 71 76 78 Respiratory Rate 14 16 16 Blood Pressure Blood Pressure [Le ft Arm] 113/49 L 113/61 130/73 Pulse Oximetry 95 91 91 Oxygen Delivery Me thod Room Air Room Air Room Air Oxygen Flow Rate 03/24/22 17:00 03/24/22 18:00 03/24/22 19:00 Temperature 97.9 F Pulse Rate Pulse Rate [Left P ulse Oximeter] 81 90 89 Respiratory Rate 16 16 16 Blood Pressure Blood Pressure [Le ft Arm] 128/58 L 132/64 137/58 L Pulse Oximetry 92 95 94 Oxygen Delivery Me thod Room Air Room Air Room Air Oxygen Flow Rate 03/24/22 20:27 03/24/22 20:00 03/24/22 21:00 Temperature 97.1 F L 98 F Pulse Rate Pulse Rate [Left P ulse Oximeter] 81 74 Respiratory Rate 16 16 Blood Pressure Blood Pressure [Le ft Arm] 144/61 H 138/54 L Pulse Oximetry 97 98 Oxygen Delivery Me thod Room Air Room Air Oxygen Flow Rate 03/24/22 23:00 03/25/22 03:00 Temperature 98.5 F 98.3 F Pulse Rate Pulse Rate [Left P ulse Oximeter] 82 83 Respiratory Rate 16 18 Blood Pressure Blood Pressure [Le ft Arm] 138/69 158/83 H Pulse Oximetry 96 94 Oxygen Delivery Me thod Room Air Room Air Oxygen Flow Rate DS: Data Data Completed and Pending Labs on day of discharge: Labs from last 24 hours 03/24/22 03/24/22 03/24/22 08:10 08:10 08:10 WBC 4.73 RBC 3.98 L Hgb 12.0 Hct 37.4 MCV 94 MCH 30 MCHC 32 RDW Coeff of Ale 13.2 Plt Count 174 Neut % (Auto) 60.7 Lymph % (Auto) 30.0 [place] % (Auto) 5.5 Eos % (Auto) 3.2 Baso % (Auto) 0.6 Neut # (Auto) 2.87 Lymph # (Auto) 1.42 [place] # (Auto) 0.30 Eos # (Auto) 0.15 Baso # (Auto) 0.03 Abs Immat Gran (auto) 0.00 Imm/Tot Granulo (auto) 0.0 Potassium 3.3 L Blood Type O Positive Antibody Screen NEGATIVE Discharge Plan Discharge Disposition: Home, Self-Care Discharging Surgeon: Natacha Gunter Follow-Up Appointment: Mar 30 Prescriptions: New hydrocodone-acetaminophen 5-325 mg Tablet 1 - 2 tab PO Q6H PRN (Reason: Pain) Qty: 30 0RF Continued potassium chloride 20 mEq tablet extended release 20 meq PO QDAY Qty: 20 1RF levothyroxine 100 mcg tablet 100 mcg PO QDAY Label Comments: TAKE 1 TABLET BY MOUTH DAILY lorazepam [Ativan] 0.5 mg tablet 0.5 mg PO BID Label Comments: 0.5 MG PO BID prochlorperazine maleate 10 mg tablet 10 mg PO Q8-12H PRN (Reason: nausea and vomiting) ibuprofen 600 mg tablet 600 mg PO .COMPLEX Rx Instructions: q6h prn pertuzumab 420 mg/14 mL (30 mg/mL) solution 420 mg IV Q21D Rx Instructions: administer over 30-60 mins trastuzumab 150 mg recon soln 100 mg IV QWEEK Rx Instructions: administer over 30 mins Discontinued acetaminophen 325 mg capsule 325 - 650 mg PO Q4H PRN (Reason: fever or pain) Rx Instructions: Max of 4000mg in 24 hours. amoxicillin 500 mg capsule 2,000 mg PO ONCE Label Comments: Takes prior to dental appointment Activity Level: No strenuous activity Activity Detail: No lifting more than 20 lb for 4 weeks Discharge Diet: Regular Patient Instructions: Hydrocodone/Acetaminophen (By mouth), Rasheed-Duarte Drain Care (DC), Surgical Site Infections (DC), Mastectomy (DC) Additional Instructions: Your sutures are under the skin and will dissolve over time. Leave steri strips (white bandages) over incisions until they fall off (or remove after 7 days). OK to shower tomorrow but avoid bathing, soaking or swimming for 2 weeks. Pat the incisions dry. No need to wash or scrub the area. Cover drain sites with Tegaderm when in the shower. Apply ice to the area as needed for swelling. It is also OK to use a heating pad if this provides more comfort to you. Empty and record drain output daily. Bring this with you to your follow-up appointment. Once 1 drain has less than 30 mL per day for 2 consecutive days, it may be removed. If this does not coincide with your follow-up clinic appointment, please call Alexandra's number at [phone] to facilitate a time to come in for the drain to be pulled. Pain control: You were prescribed a pain medication. This medication contains acetaminophen (Tylenol). If you are taking your prescribed pain pills 4 times daily, do not take additional acetaminophen. Do not take lorazepam/Ativan same time as the prescribed pain pills As your pain improves, you can try taking acetaminophen instead of the prescribed pain pill. It is ok to take Ibuprofen or Naproxen (per directions on packaging). This medication helps with inflammation and swelling. Take an [id number] stool softener while you are taking prescribed pain medications to help alleviate constipation. I recommend Senna and/or Colace. Take as directed on package. If you have not had a bowel movement in 3 days, try taking Miralax as directed on the package. All of these are available over the counter. Follow-up Follow up with Dr. Gunter next week Please call if you are experiencing severe pain, nausea, vomiting, difficulty urinating, fever or have not had bowel movement in 4 days after surgery. Forms: Work/Release Restrictions Follow-up: Natacha Gunter MD [Staff Physician] - 03/30/22 3:00 pm Edson Tate MD [Primary Care Provider] - (Schedule appointment as needed) Discharge Orders: Discharge Order (Routine); Ordered 03/25/22 Ordered By: Natacha Gunter
== END 2022-03-25 09:05 | disposition home or self-care (01) ==
LOC: OR 07:44 → MEDSURG 07:45
PROVIDERS: PCP Family Medicine; Visit Provider Surgery
PROC: (CPT 19303; principal; 2022-03-24 10:15)
DX: C50.911 Malignant neoplasm of unspecified site of right female breast (principal); Z17.0 Estrogen receptor positive status [ER+]; G89.18 Other acute postprocedural pain; E03.9 Hypothyroidism, unspecified; F41.1 Generalized anxiety disorder
CPT/HCPCS: 19303; 38525; 00400; 10035; 36415; 38792; 64420; 76942; 77065; 84132; 85025; 86850; 86900; 86901; 88305; 88307; 88342; A9270; A9541; C1769; G0279; J0131; J0330; J0690; J1170; J1885; J2250; J2370; J2405; J2704; J3010; J3475; J3490; J7120

== ENCOUNTER 2022-05-06 10:15 | Outpatient (RCR) | payer OTHER, SELFPAY | END 2022-07-06 12:08 | disposition home or self-care (01) | PROVIDERS: PCP Family Medicine; Visit Provider Surgery | DX: I89.0 Lymphedema, not elsewhere classified (principal); Z51.89 Encounter for other specified aftercare | CPT/HCPCS: 97110; 97140; 97162; 97164; 97165; 97535 ==

== ENCOUNTER 2022-05-06 11:15 | Outpatient (CLI) | payer OTHER, SELFPAY | END 2022-05-06 11:16 | disposition home or self-care (01) | LOC: RAD 11:15 | PROVIDERS: PCP Family Medicine; Visit Provider Internal Medicine Hematology & Oncology | DX: C50.911 Malignant neoplasm of unspecified site of right female breast (principal); Z51.11 Encounter for antineoplastic chemotherapy | CPT/HCPCS: 93306 ==

== ENCOUNTER 2022-05-20 13:00 | Outpatient (RCR) | payer OTHER, SELFPAY ==
[2021-12-10 08:30] LABS: Basophils Percent Auto 1.3 % (0.0-3.0); Eosinophils Percent Auto 0.3 % (0.0-7.0); Hematocrit 36.8 % (33.0-51.0); Hemoglobin* 11.9 gm/dL (12.0-16.0); Immature Granulocytes Abs Auto 0.01 K/uL (0.00-0.30); Lymphocytes Percent Auto 37.6 % (20-44); Mean Corpuscular HGB Conc 32 gm/dL (32-36); Mean Corpuscular Hemoglobin 29 pg (26-34); Mean Corpuscular Volume 90 fL (80-100); Monocytes Percent Auto 10.7 % (0.0-11.0); Neutrophils Percent Auto 49.8 % (42.0-72.0); Platelet Count* 263 K/uL (140-440); RDW Coefficient of Variation % 14.9 % (11.5-15.5); Red Blood Count 4.09 m/uL (4.00-5.20); White Blood Count* 3.75 K/uL (4.50-11.00)
[2021-12-10 08:34] LABS: Slide Review Reflex No
[2021-12-10 08:44] LABS: Chloride* 108 mmol/L (96-114); Potassium* 3.4 mmol/L (3.6-5.1); Sodium* 143 mmol/L (135-149)
[2021-12-10 08:46] LABS: Bilirubin Total* 0.4 mg/dL (0.1-1.5); Carbon Dioxide* 27 mmol/L (20-32); Creatinine* 0.6 mg/dL (0.5-1.5); Estimated Glomerular Filt Rate 103 ml/min
[2021-12-10 08:47] LABS: Alanine Aminotransferase* 38 U/L (4-35); Alkaline Phosphatase* 85 U/L (40-150); Aspartate Amino Transferase* 33 U/L (12-35); Blood Urea Nitrogen* 12 mg/dL (7-30); Calcium* 8.7 mg/dL (8.4-10.6); Glucose* 125 mg/dL (60-115)
[2021-12-10] MEDS: PERTUZUMAB 420 MG, TUBING SECONDARY 1 EACH in 0.9 % SODIUM CHLORIDE 250 ml 250 ML 528 MG IV (10:29)
[2021-12-10] MEDS: dexAMETHasone 10 MG in 0.9 % SODIUM CHLORIDE 100 ml 100 ML 404 MG IVPB (11:27)
[2021-12-10] MEDS: PALONOSETRON 0.25 MG/5 ML inj IV (11:27)
[2021-12-10] MEDS: FOSAPREPITANT 150 MG inj 150 MG in 0.9 % SODIUM CHLORIDE 250 ml 250 ML 510 MG IVPB (11:55)
[2021-12-10] MEDS: DOCEtaxeL 135 MG, TUBING SECONDARY 1 EACH in 0.9 % SODIUM CHL 250 ml Excel 250 ML 256.75 MG IVPB (13:34)
[2021-12-10] MEDS: 0.9 % SODIUM CHLORIDE 250 ml IV (16:33)
[2021-12-31 08:33] LABS: Basophils Absolute Auto 0.06 K/uL (0.00-0.30); Basophils Percent Auto 1.2 % (0.0-3.0); Eosinophils Absolute Auto 0.02 K/uL (0.00-0.50); Eosinophils Percent Auto 0.4 % (0.0-7.0); Hemoglobin* 11.1 gm/dL (12.0-16.0); Lymphocytes Absolute Auto 1.35 K/uL (0.90-2.90); Lymphocytes Percent Auto 26.5 % (20-44); Mean Corpuscular HGB Conc 33 gm/dL (32-36); Mean Corpuscular Hemoglobin 29 pg (26-34); Mean Corpuscular Volume 90 fL (80-100); Monocytes Percent Auto 9.2 % (0.0-11.0); Neutrophils Absolute Auto 3.19 K/uL (1.7-7.0); Neutrophils Percent Auto 62.7 % (42.0-72.0); Platelet Count* 254 K/uL (140-440); RDW Coefficient of Variation % 15.4 % (11.5-15.5); Red Blood Count 3.77 m/uL (4.00-5.20); White Blood Count* 5.09 K/uL (4.50-11.00)
[2021-12-31 08:40] LABS: Slide Review Reflex No
[2021-12-31 09:09] LABS: Albumin* 3.8 g/dL (3.3-5.0); Chloride* 109 mmol/L (96-114); Potassium* 3.2 mmol/L (3.6-5.1); Sodium* 143 mmol/L (135-149)
[2021-12-31 09:11] LABS: Alanine Aminotransferase* 33 U/L (4-35); Alkaline Phosphatase* 109 U/L (40-150); Aspartate Amino Transferase* 32 U/L (12-35); Bilirubin Total* 0.3 mg/dL (0.1-1.5); Blood Urea Nitrogen* 12 mg/dL (7-30); Calcium* 8.6 mg/dL (8.4-10.6); Carbon Dioxide* 25 mmol/L (20-32); Creatinine* 0.6 mg/dL (0.5-1.5); Estimated Glomerular Filt Rate 103 ml/min; Glucose* 111 mg/dL (60-115); Total Protein* 6.7 g/dL (6.0-8.3)
[2021-12-31] MEDS: HEPARIN 500 UNIT/5 ML SYRINGE IVF (09:19)
[2021-12-31] MEDS: PERTUZUMAB 420 MG, TUBING SECONDARY 1 EACH in 0.9 % SODIUM CHLORIDE 250 ml 250 ML 528 MG IV (11:34)
[2021-12-31] MEDS: dexAMETHasone 10 MG in 0.9 % SODIUM CHLORIDE 100 ml 100 ML 404 MG IVPB (12:32)
[2021-12-31] MEDS: PALONOSETRON 0.25 MG/5 ML inj IV (12:32)
[2021-12-31] MEDS: FOSAPREPITANT 150 MG inj 150 MG in 0.9 % SODIUM CHLORIDE 250 ml 250 ML 510 MG IVPB (13:02)
[2021-12-31] MEDS: 0.9 % SODIUM CHLORIDE 250 ml IV (14:15)
[2021-12-31] MEDS: SODIUM CHLORIDE 0.9 % (FLUSH) 10 ML SYRINGE IVF (14:15)
[2021-12-31] MEDS: DOCEtaxeL 135 MG, TUBING SECONDARY 1 EACH in 0.9 % SODIUM CHL 250 ml Excel 250 ML 256.75 MG IVPB (14:25)
[2022-01-21 09:35] LABS: Basophils Percent Auto 1.2 % (0.0-3.0); Eosinophils Percent Auto 0.2 % (0.0-7.0); Hematocrit 35.4 % (33.0-51.0); Hemoglobin* 11.5 gm/dL (12.0-16.0); Lymphocytes Percent Auto 29.1 % (20-44); Mean Corpuscular HGB Conc 33 gm/dL (32-36); Mean Corpuscular Hemoglobin 30 pg (26-34); Mean Corpuscular Volume 92 fL (80-100); Monocytes Percent Auto 8.9 % (0.0-11.0); Neutrophils Percent Auto 60.6 % (42.0-72.0); Platelet Count* 194 K/uL (140-440); RDW Coefficient of Variation % 15.4 % (11.5-15.5); Red Blood Count 3.85 m/uL (4.00-5.20); White Blood Count* 4.16 K/uL (4.50-11.00)
[2022-01-21 09:36] LABS: Slide Review Reflex No
[2022-01-21 09:51] LABS: Chloride* 107 mmol/L (96-114)
[2022-01-21 09:52] LABS: Potassium* 3.5 mmol/L (3.6-5.1); Sodium* 141 mmol/L (135-149)
[2022-01-21 09:54] LABS: Alanine Aminotransferase* 39 U/L (4-35); Alkaline Phosphatase* 102 U/L (40-150); Aspartate Amino Transferase* 36 U/L (12-35); Bilirubin Total* 0.4 mg/dL (0.1-1.5); Blood Urea Nitrogen* 11 mg/dL (7-30); Carbon Dioxide* 27 mmol/L (20-32); Creatinine* 0.5 mg/dL (0.5-1.5); Estimated Glomerular Filt Rate 107 ml/min; Glucose* 117 mg/dL (60-115); Total Protein* 6.8 g/dL (6.0-8.3)
[2022-01-21 09:55] LABS: Calcium* 8.7 mg/dL (8.4-10.6)
--- NOTE | 2022-01-21 10:46 | URNOTE ---
Per written correspondance from [facility], Trastuzumab (J9355) has been determined to be medically necessary and approved 10/17/2021-10/17/2022. Case #[id number]
[2022-01-21] MEDS: PALONOSETRON 0.25 MG/5 ML inj IV (11:18)
[2022-01-21] MEDS: dexAMETHasone 10 MG in 0.9 % SODIUM CHLORIDE 100 ml 100 ML 404 MG IVPB (11:18)
[2022-01-21] MEDS: FOSAPREPITANT 150 MG inj 150 MG in 0.9 % SODIUM CHLORIDE 250 ml 250 ML 510 MG IVPB (11:45)
[2022-01-21] MEDS: PERTUZUMAB 420 MG, TUBING SECONDARY 1 EACH in 0.9 % SODIUM CHLORIDE 250 ml 250 ML 528 MG IV (12:23)
[2022-01-21] MEDS: DOCEtaxeL 135 MG, TUBING SECONDARY 1 EACH in 0.9 % SODIUM CHL 250 ml Excel 250 ML 256.75 MG IVPB (13:55)
[2022-01-21] MEDS: 0.9 % SODIUM CHLORIDE 250 ml IV (15:30)
[2022-01-21] MEDS: SODIUM CHLORIDE 0.9 % (FLUSH) 10 ML SYRINGE IVF (15:31)
--- NOTE | 2022-01-21 16:04 | ONC.NURNOTE ---
Pt tolerated transfusion well. no nausea during beginning. Checked with Dr. Cason for Carbo dose. no change in dose. ate a meal here this afternoon. sign other very supportive.
[2022-02-11 08:43] LABS: Basophils Absolute Auto 0.04 K/uL (0.00-0.30); Basophils Percent Auto 0.9 % (0.0-3.0); Hematocrit 34.9 % (33.0-51.0); Hemoglobin* 11.4 gm/dL (12.0-16.0); Lymphocytes Absolute Auto 1.31 K/uL (0.90-2.90); Lymphocytes Percent Auto 28.2 % (20-44); Mean Corpuscular HGB Conc 33 gm/dL (32-36); Mean Corpuscular Hemoglobin 31 pg (26-34); Mean Corpuscular Volume 94 fL (80-100); Monocytes Percent Auto 11.2 % (0.0-11.0); Neutrophils Absolute Auto 2.77 K/uL (1.7-7.0); Neutrophils Percent Auto 59.7 % (42.0-72.0); Platelet Count* 209 K/uL (140-440); RDW Coefficient of Variation % 15.4 % (11.5-15.5); Red Blood Count 3.71 m/uL (4.00-5.20); White Blood Count* 4.64 K/uL (4.50-11.00)
[2022-02-11 08:46] LABS: Slide Review Reflex No
[2022-02-11 08:56] LABS: Chloride* 105 mmol/L (96-114); Potassium* 3.3 mmol/L (3.6-5.1); Sodium* 141 mmol/L (135-149)
[2022-02-11 08:58] LABS: Bilirubin Total* 0.3 mg/dL (0.1-1.5); Carbon Dioxide* 25 mmol/L (20-32); Creatinine* 0.6 mg/dL (0.5-1.5); Estimated Glomerular Filt Rate 103 ml/min
[2022-02-11 08:59] LABS: Alanine Aminotransferase* 28 U/L (4-35); Alkaline Phosphatase* 97 U/L (40-150); Aspartate Amino Transferase* 28 U/L (12-35); Blood Urea Nitrogen* 11 mg/dL (7-30); Calcium* 8.8 mg/dL (8.4-10.6); Glucose* 99 mg/dL (60-115); Total Protein* 6.6 g/dL (6.0-8.3)
[2022-02-11] MEDS: PALONOSETRON 0.25 MG/5 ML inj IV (10:17)
[2022-02-11] MEDS: dexAMETHasone 10 MG in 0.9 % SODIUM CHLORIDE 100 ml 100 ML 404 MG IVPB (10:17)
[2022-02-11] MEDS: FOSAPREPITANT 150 MG inj 150 MG in 0.9 % SODIUM CHLORIDE 250 ml 250 ML 510 MG IVPB (10:43)
[2022-02-11] MEDS: PERTUZUMAB 420 MG, TUBING SECONDARY 1 EACH in 0.9 % SODIUM CHLORIDE 250 ml 250 ML 528 MG IV (11:31)
[2022-02-11] MEDS: DOCEtaxeL 135 MG, TUBING SECONDARY 1 EACH in 0.9 % SODIUM CHL 250 ml Excel 250 ML 256.75 MG IVPB (12:59)
[2022-02-11] MEDS: HEPARIN 500 UNIT/5 ML SYRINGE IVF (13:03)
[2022-02-11] MEDS: 0.9 % SODIUM CHLORIDE 250 ml IV (13:03)
[2022-02-11] MEDS: SODIUM CHLORIDE 0.9 % (FLUSH) 10 ML SYRINGE IVF (13:03)
[2022-03-04 08:30] VITALS: BP 134/75; PULSE 88; RESP 14; TEMP 36.3; O2SAT 98
[2022-03-04 10:14] LABS: Basophils Percent Auto 0.9 % (0.0-3.0); Hematocrit 32.3 % (33.0-51.0); Hemoglobin* 10.5 gm/dL (12.0-16.0); Immature Granulocytes Abs Auto 0.01 K/uL (0.00-0.30); Lymphocytes Percent Auto 36.7 % (20-44); Mean Corpuscular HGB Conc 33 gm/dL (32-36); Mean Corpuscular Hemoglobin 31 pg (26-34); Mean Corpuscular Volume 95 fL (80-100); Monocytes Percent Auto 11.1 % (0.0-11.0); Platelet Count* 188 K/uL (140-440); RDW Coefficient of Variation % 15.1 % (11.5-15.5); Red Blood Count 3.41 m/uL (4.00-5.20); White Blood Count* 3.43 K/uL (4.50-11.00)
[2022-03-04 10:41] LABS: Slide Review Reflex No
[2022-03-04 11:03] LABS: Alanine Aminotransferase* 25 U/L (4-35); Albumin* 3.8 g/dL (3.3-5.0); Alkaline Phosphatase* 80 U/L (40-150); Aspartate Amino Transferase* 26 U/L (12-35); Bilirubin Total* 0.5 mg/dL (0.1-1.5); Blood Urea Nitrogen* 13 mg/dL (7-30); Carbon Dioxide* 28 mmol/L (20-32); Chloride* 104 mmol/L (96-114); Creatinine* 0.6 mg/dL (0.5-1.5); Estimated Glomerular Filt Rate 103 ml/min; Glucose* 106 mg/dL (60-115); Sodium* 140 mmol/L (135-149); Total Protein* 6.1 g/dL (6.0-8.3)
[2022-03-04] MEDS: 0.9 % SODIUM CHLORIDE 250 ml IV (12:49)
[2022-03-04] MEDS: HEPARIN 500 UNIT/5 ML SYRINGE IVF (12:49)
[2022-03-04] MEDS: SODIUM CHLORIDE 0.9 % (FLUSH) 10 ML SYRINGE IVF (12:50)
[2022-03-04] MEDS: PERTUZUMAB 420 MG, TUBING SECONDARY 1 EACH in 0.9 % SODIUM CHLORIDE 250 ml 250 ML 528 MG IV (14:43)
--- NOTE | 2022-03-04 16:07 | ONC.NURNOTE ---
calcium 8. potassium 3. pt states sometimes forgets to take her potassium at home. note labs took 1.[address] Cason aware. pt ok to get treatment. after receiving 10meq KCL over a hr x2.
[2022-04-07] MEDS: ALTEPLASE 2 MG INJ IVF (08:13)
[2022-04-07] MEDS: SODIUM CHLORIDE 0.9 % (FLUSH) 10 ML SYRINGE IVF ×2 (08:13→12:07)
[2022-04-07 08:21] LABS: Basophils Absolute Auto 0.04 K/uL (0.00-0.30); Basophils Percent Auto 0.7 % (0.0-3.0); Eosinophils Percent Auto 10.1 % (0.0-7.0); Hematocrit 36.6 % (33.0-51.0); Hemoglobin* 11.8 gm/dL (12.0-16.0); Lymphocytes Absolute Auto 1.69 K/uL (0.90-2.90); Lymphocytes Percent Auto 28.9 % (20-44); Mean Corpuscular HGB Conc 32 gm/dL (32-36); Mean Corpuscular Hemoglobin 30 pg (26-34); Mean Corpuscular Volume 92 fL (80-100); Monocytes Percent Auto 5.3 % (0.0-11.0); Neutrophils Absolute Auto 3.21 K/uL (1.7-7.0); Platelet Count* 330 K/uL (140-440); RDW Coefficient of Variation % 12.9 % (11.5-15.5); Red Blood Count 3.97 m/uL (4.00-5.20); White Blood Count* 5.84 K/uL (4.50-11.00)
[2022-04-07 08:23] LABS: Slide Review Reflex No
[2022-04-07 08:39] LABS: Albumin* 4.1 g/dL (3.3-5.0); Chloride* 109 mmol/L (96-114); Potassium* 3.7 mmol/L (3.6-5.1); Sodium* 142 mmol/L (135-149)
[2022-04-07 08:42] LABS: Alanine Aminotransferase* 20 U/L (4-35); Alkaline Phosphatase* 106 U/L (40-150); Aspartate Amino Transferase* 23 U/L (12-35); Bilirubin Total* 0.3 mg/dL (0.1-1.5); Blood Urea Nitrogen* 21 mg/dL (7-30); Carbon Dioxide* 23 mmol/L (20-32); Creatinine* 0.6 mg/dL (0.5-1.5); Estimated Glomerular Filt Rate 103 ml/min; Glucose* 89 mg/dL (60-115)
[2022-04-07] MEDS: 0.9 % SODIUM CHLORIDE 1000 ml 1,000 ML IV (09:41)
[2022-04-07] MEDS: PERTUZUMAB 420 MG, TUBING SECONDARY 1 EACH in 0.9 % SODIUM CHLORIDE 250 ml 250 ML 528 MG IV (10:22)
[2022-04-07] MEDS: HEPARIN 500 UNIT/5 ML SYRINGE IVF (12:07)
[2022-04-28 12:04] VITALS: BP 128/77; PULSE 85; RESP 16; TEMP 36; O2SAT 96
[2022-04-28 12:26] LABS: Hematocrit 36.4 % (33.0-51.0); Hemoglobin* 11.8 gm/dL (12.0-16.0); Lymphocytes Percent Auto 33.8 % (20-44); Mean Corpuscular HGB Conc 32 gm/dL (32-36); Mean Corpuscular Hemoglobin 30 pg (26-34); Mean Corpuscular Volume 92 fL (80-100); Monocytes Percent Auto 4.9 % (0.0-11.0); Neutrophils Percent Auto 56.7 % (42.0-72.0); Platelet Count* 223 K/uL (140-440); RDW Coefficient of Variation % 13.1 % (11.5-15.5); Red Blood Count 3.97 m/uL (4.00-5.20); White Blood Count* 4.73 K/uL (4.50-11.00)
[2022-04-28 12:27] LABS: Basophils Absolute Auto 0.04 K/uL (0.00-0.30); Basophils Percent Auto 0.8 % (0.0-3.0); Eosinophils Absolute Auto 0.18 K/uL (0.00-0.50); Eosinophils Percent Auto 3.8 % (0.0-7.0); Neutrophils Absolute Auto 2.68 K/uL (1.7-7.0)
[2022-04-28 12:38] LABS: Albumin* 4.2 g/dL (3.3-5.0); Chloride* 106 mmol/L (96-114); Sodium* 143 mmol/L (135-149)
[2022-04-28 12:39] LABS: Potassium* 3.6 mmol/L (3.6-5.1)
[2022-04-28 12:41] LABS: Alkaline Phosphatase* 93 U/L (40-150); Aspartate Amino Transferase* 24 U/L (12-35); Bilirubin Total* 0.5 mg/dL (0.1-1.5); Blood Urea Nitrogen* 13 mg/dL (7-30); Carbon Dioxide* 29 mmol/L (20-32); Creatinine* 0.6 mg/dL (0.5-1.5); Estimated Glomerular Filt Rate 103 ml/min; Slide Review Reflex No; Total Protein* 6.8 g/dL (6.0-8.3)
[2022-04-28 12:42] LABS: Alanine Aminotransferase* 27 U/L (4-35); Glucose* 102 mg/dL (60-115)
[2022-04-28] MEDS: PERTUZUMAB 420 MG, TUBING SECONDARY 1 EACH in 0.9 % SODIUM CHLORIDE 250 ml 250 ML 528 MG IV (13:51)
[2022-05-20 12:40] VITALS: BP 148/70; PULSE 91; RESP 16; TEMP 37; O2SAT 97
[2022-05-20 13:20] LABS: Basophils Absolute Auto 0.01 K/uL (0.00-0.30); Basophils Percent Auto 0.2 % (0.0-3.0); Eosinophils Absolute Auto 0.09 K/uL (0.00-0.50); Hematocrit 37.5 % (33.0-51.0); Hemoglobin* 12.3 gm/dL (12.0-16.0); Lymphocytes Absolute Auto 1.05 K/uL (0.90-2.90); Lymphocytes Percent Auto 23.1 % (20-44); Mean Corpuscular HGB Conc 33 gm/dL (32-36); Mean Corpuscular Hemoglobin 29 pg (26-34); Mean Corpuscular Volume 88 fL (80-100); Monocytes Percent Auto 7.3 % (0.0-11.0); Neutrophils Absolute Auto 3.06 K/uL (1.7-7.0); Neutrophils Percent Auto 67.4 % (42.0-72.0); Platelet Count* 207 K/uL (140-440); RDW Coefficient of Variation % 12.9 % (11.5-15.5); Red Blood Count 4.24 m/uL (4.00-5.20); Slide Review Reflex No; White Blood Count* 4.54 K/uL (4.50-11.00)
[2022-05-20 13:33] LABS: Albumin* 4.1 g/dL (3.3-5.0); Chloride* 107 mmol/L (96-114); Potassium* 3.8 mmol/L (3.6-5.1); Sodium* 143 mmol/L (135-149)
[2022-05-20 13:35] LABS: Creatinine* 0.6 mg/dL (0.5-1.5); Estimated Glomerular Filt Rate 103 ml/min
[2022-05-20 13:36] LABS: Alanine Aminotransferase* 22 U/L (4-35); Alkaline Phosphatase* 94 U/L (40-150); Aspartate Amino Transferase* 21 U/L (12-35); Bilirubin Total* 0.5 mg/dL (0.1-1.5); Blood Urea Nitrogen* 15 mg/dL (7-30); Calcium* 9.1 mg/dL (8.4-10.6); Carbon Dioxide* 30 mmol/L (20-32); Glucose* 119 mg/dL (60-115)
[2022-05-20] MEDS: PERTUZUMAB 420 MG, TUBING SECONDARY 1 EACH in 0.9 % SODIUM CHLORIDE 250 ml 250 ML 528 MG IV (14:11)
== END 2022-06-08 23:59 | disposition home or self-care (01) ==
LOC: CCIC 13:00
PROVIDERS: Clinical Nurse Specialist; PCP Family Medicine; Referring Provider Family Medicine; Visit Provider Internal Medicine Hematology & Oncology
DX: Z51.11 Encounter for antineoplastic chemotherapy (principal); C50.911 Malignant neoplasm of unspecified site of right female breast; Z17.0 Estrogen receptor positive status [ER+]
CPT/HCPCS: 36415; 36591; 80053; 85025; 96361; 96366; 96376; 96377; 96413; 96415; 96417; 97110; 97140; 97164; 99202; 99212; 99214; 99215; J2506; J1100; J1453; J1642; J2469; J2997; J3480; J7030; J7050; J9045; J9171; J9306; J9355

== ENCOUNTER 2022-07-09 08:57 | Outpatient (CLI) | payer OTHER, SELFPAY ==
--- NOTE | 2022-07-09 09:15 | CRLHL7_ITS ---
For Patients: As a result of the Century Cures Act, medical imaging exams and procedure reports are released immediately into your electronic medical record. You may view this report before your referring provider. If you have questions, please contact your health care provider. Indication: non-functioning port-a-cath Technique: Fluoroscopic injection 5 cc Omnipaque 240 through the indwelling central venous catheter performed. Fluoroscopic time 29 seconds. Comparison: Chest x-ray 12/15/2021 IMPRESSION: Left internal jugular central venous catheter is present. The tip is located at the brachiocephalic confluence which has pulled back from the SVC when compared to the prior chest x-ray. Contrast is located adjacent to the distal aspect of the catheter, approximately 3.5 cm from the catheter tip. No contrast extends from the tip of the catheter and no withdrawal of blood could be performed. Findings compatible with fibrin sheath. Consider CTA chest to evaluate for DVT. Discussed with Yolis in the cancer infusion center. Dictated by Rakesh Mathew MD @ 07/09/2022 10:17:34 AM (Electronically Signed)
== END 2022-07-09 08:58 | disposition home or self-care (01) ==
LOC: RAD 08:57
PROVIDERS: PCP Family Medicine; Visit Provider Surgery
DX: Z45.2 Encounter for adjustment and management of vascular access device (principal)
CPT/HCPCS: 76000

== ENCOUNTER 2022-07-10 08:14 | Outpatient (CLI) | payer OTHER, SELFPAY ==
--- NOTE | 2022-07-10 09:00 | CRLHL7_ITS ---
For Patients: As a result of the 21st Century Cures Act, medical imaging exams and procedure reports are released immediately into your electronic medical record. You may view this report before your referring provider. If you have questions, please contact your health care provider. INDICATION: Fibrin sheath on Port-A-Cath. TECHNIQUE: CT chest PE was acquired with 95 cc Isovue 370 intravenous contrast. COMPARISON: None. FINDINGS: Heart and vasculature: Contrast opacification of the pulmonary arterial tree is adequate. No sign of pulmonary embolism. Left-sided Port-A-Cath with occlusion of the distal left brachiocephalic vein and some narrowing of the superior vena cava proximally. Prominent collateral vessels across the upper mediastinum as well as extending posteriorly to the azygos vein. Catheter tip is at the distal brachiocephalic vein level. No pericardial effusion. Thoracic aorta is normal in caliber. Lungs and pleural: No pleural effusion or pneumothorax. Lymph nodes/mediastinum: No mediastinal, hilar, or axillary adenopathy. Chest wall: Status post bilateral mastectomy. Surgical clips in the right axilla and subpectoral space. Low-density collection in the right axilla, likely part of a seroma measuring 16 millimeters. Upper abdomen: Status post cholecystectomy. Bones: Unremarkable for age. IMPRESSION: 1. No evidence of pulmonary embolus. 2. Left-sided Port-A-Cath with tip at the level the distal brachiocephalic vein. Occlusion of the left brachiocephalic vein at the distal level with numerous collaterals across the upper mediastinum. Small caliber of the superior vena cava although the superior vena cava is patent. Results called to Yolis Hernandez APRN, at 0958 on 07/10/2022 Please note that all CT scans at this facility use dose modulation, iterative reconstruction, and/or weight-based dosing when appropriate to reduce radiation dose to as low as reasonably achievable. Dictated by Jesse Basurto MD @ 07/10/2022 9:58:58 AM (Electronically Signed)
== END 2022-07-10 08:15 | disposition home or self-care (01) ==
PROVIDERS: PCP Family Medicine; Visit Provider Surgery
DX: T82.868A Thrombosis due to vascular prosthetic devices, implants and grafts, initial encounter (principal)
CPT/HCPCS: 71260; Q9967

== ENCOUNTER 2022-08-06 11:42 | Outpatient (CLI) | payer OTHER, SELFPAY ==
--- NOTE | 2022-08-06 14:30 | XR_ITS ---
Patient: LEROY RICK Facility:?[facility] Patient ID:?[id number] Site Patient ID:?[id number]. Site :?[id number] Study:?DEXA-Bone Density DEXA SPINE/BILAT FOREARMS-08/06/2022 12:26:36 PM Ordering Physician:ASHTYN ERIC Final Report: DXA BONE MINERAL DENSITY STUDY, 08/06/2022 Reason for exam: Menopausal. Current height (inches): 64 Weight (lbs.): 150 Menopause age: 53 Ethnicity: White 1. Have you had a previous hip or vertebral fracture? No. 2. Have you had any fractures during your adult life which did not result from significant trauma (e.g., auto accident)? No. 3. Did either of your parents have a hip fracture? No. 4. Do you smoke? No. 5. Have you ever taken Glucocorticoids? No. 6. Do you have rheumatoid arthritis? No. 7. Do you have secondary osteoporosis? No. 8. Do you drink 3 or more alcoholic drinks per day? No. 9. Are you being treated for osteoporosis? No. 10. Have you ever taken any of the following medications: Actonel, Evista, Fosamax, Miacalcin, Reclast, Boniva, Forteo, HRT (i.e., estrogen/hormone therapy), Protelos, Prolia, Vitamin D, Calcium, other ? please specify. ANSWER: Yes; vitamin D, calcium, levothyroxine. 11. Do you have any of the following medical conditions: Anorexia or bulimia, asthma or emphysema, end stage renal disease, hyperparathyroidism, any seizure disorders, cancer, inflammatory bowel diseases, hysterectomy, other ? please specify. ANSWER: Yes; cancer, hypothyroidism. 12. What was your maximum height (inches)? 64. 13. Do you perform weightbearing exercise regularly? No. 14. Do you regularly consume dairy products? Yes. 15. Do you drink caffeinated beverages? Yes. 16. At what age did your period start? 13. 17. Are you premenopausal? No. 18. How many full-term pregnancies have you had? 1. 19. Have you ever missed your period for more than 6 months in a row (not including or menopause)? Yes. TECHNIQUE: Bone mineral density study was performed using the [employer]. FINDINGS: The results of the study expressed as bone mineral density (BMD) are as follows: Lumbar Spine L1, L2 and L4: BMD: 0.861 g/cm2. T-score: -1.6. Z-score: -0.1. Radius Left 33%: BMD: 0.627 g/cm2. T-score: -1.1. Z-score: 0.3. Right 33%: BMD: 0.610 g/cm2. T-score: -1.4. Z-score: 0.0. IMPRESSION: Osteopenia. COMPARISON: Compared with scan of 04/10/2019, the bone mineral density has decreased by 2.6% at the spine. *Comparison exams done prior to 10/2019 were performed on different unit, [employer]. DREW YAP M.D. Diagnostic Radiologist [email or web address] MERLY/renata D& Transcribed: 1:[address]/Dictated by: Drew Yap MD @ 08/06/2022 1:06:00 PM Signed by:?Drew Yap MD @08/06/2022 4:03:33 PM (Electronic Signature)
== END 2022-08-06 11:43 | disposition home or self-care (01) ==
LOC: RAD 11:42
PROVIDERS: PCP Family Medicine; Visit Provider Internal Medicine Hematology & Oncology
DX: N95.9 Unspecified menopausal and perimenopausal disorder (principal); M85.89 Other specified disorders of bone density and structure, multiple sites
CPT/HCPCS: 77080

== ENCOUNTER 2022-08-19 11:13 | Outpatient (CLI) | payer OTHER, SELFPAY ==
--- NOTE | 2022-08-19 11:15 | CRLHL7_ITS ---
For Patients: As a result of the Century Cures Act, medical imaging exams and procedure reports are released immediately into your electronic medical record. You may view this report before your referring provider. If you have questions, please contact your health care provider. Indication: Rt axillary pain and cord-like structure, Hx breast ca Technique: Targeted ultrasound of the right axillary region performed in the area of concern. Comparison: CT chest 07/10/2022 Findings: Postop seroma again noted measuring 1.4 x 1.3 x 1.4 cm. There is a cord-like structure just beneath the skin secondary to a thin subcutaneous vessel containing superficial clot. No DVT. Impression: Short-segment superficial thrombosis of a tiny vein just beneath the skin without DVT. Postop seroma. No adenopathy. Dictated by Rakesh Mathew MD @ 08/19/2022 12:36:10 PM (Electronically Signed)
== END 2022-08-19 11:14 | disposition home or self-care (01) ==
LOC: US 11:14
PROVIDERS: PCP Family Medicine; Visit Provider Family Medicine
DX: R22.30 Localized swelling, mass and lump, unspecified upper limb (principal); I82.611 Acute embolism and thrombosis of superficial veins of right upper extremity; Z80.3 Family history of malignant neoplasm of breast
CPT/HCPCS: 76882

== ENCOUNTER 2022-12-02 13:40 | Outpatient (CLI) | payer OTHER, SELFPAY | END 2022-12-02 13:41 | disposition home or self-care (01) | LOC: RAD 13:40 | PROVIDERS: PCP Family Medicine; Visit Provider Internal Medicine Hematology & Oncology | DX: C50.911 Malignant neoplasm of unspecified site of right female breast (principal) | CPT/HCPCS: 93306 ==

== ENCOUNTER 2022-12-07 08:31 | Outpatient (RCR) | payer OTHER, SELFPAY ==
[2022-06-10 10:28] VITALS: BP 150/80; PULSE 74; RESP 16; TEMP 36.2; O2SAT 97
[2022-06-10] MEDS: ALTEPLASE 2 MG INJ IVF (10:56)
[2022-06-10 11:01] LABS: Basophils Percent Auto 1.3 % (0.0-3.0); Eosinophils Percent Auto 3.5 % (0.0-7.0); Hematocrit 38.5 % (33.0-51.0); Hemoglobin* 12.4 gm/dL (12.0-16.0); Lymphocytes Percent Auto 20.3 % (20-44); Mean Corpuscular HGB Conc 32 gm/dL (32-36); Mean Corpuscular Hemoglobin 28 pg (26-34); Mean Corpuscular Volume 88 fL (80-100); Monocytes Percent Auto 10.5 % (0.0-11.0); Neutrophils Percent Auto 64.4 % (42.0-72.0); Platelet Count* 182 K/uL (140-440); Red Blood Count 4.39 m/uL (4.00-5.20); White Blood Count* 3.15 K/uL (4.50-11.00)
[2022-06-10 11:03] LABS: Slide Review Reflex No
[2022-06-10 11:11] LABS: Chloride* 108 mmol/L (96-114); Sodium* 142 mmol/L (135-149)
[2022-06-10 11:12] LABS: Potassium* 4.2 mmol/L (3.6-5.1)
[2022-06-10 11:14] LABS: Alanine Aminotransferase* 21 U/L (4-35); Alkaline Phosphatase* 76 U/L (40-150); Aspartate Amino Transferase* 21 U/L (12-35); Bilirubin Total* 0.5 mg/dL (0.1-1.5); Blood Urea Nitrogen* 19 mg/dL (7-30); Carbon Dioxide* 29 mmol/L (20-32); Creatinine* 0.6 mg/dL (0.5-1.5); Estimated Glomerular Filt Rate 103 ml/min; Glucose* 83 mg/dL (60-115); Total Protein* 6.9 g/dL (6.0-8.3)
[2022-06-10] MEDS: PERTUZUMAB 420 MG, TUBING SECONDARY 1 EACH in 0.9 % SODIUM CHLORIDE 250 ml 250 ML 528 MG IV (12:36)
[2022-06-10 13:56] VITALS: BP 133/68
[2022-07-02 07:58] VITALS: BP 144/81; PULSE 82; RESP 18; TEMP 36.5; O2SAT 92
[2022-07-02] MEDS: ALTEPLASE 2 MG INJ IVF (08:27)
[2022-07-02 08:42] LABS: Basophils Absolute Auto 0.03 K/uL (0.00-0.30); Basophils Percent Auto 0.7 % (0.0-3.0); Eosinophils Absolute Auto 0.14 K/uL (0.00-0.50); Eosinophils Percent Auto 3.1 % (0.0-7.0); Hemoglobin* 12.7 gm/dL (12.0-16.0); Immature Granulocytes Abs Auto 0.01 K/uL (0.00-0.30); Immature Granulocytes Pct Auto 0.2 %; Lymphocytes Percent Auto 17.9 % (20-44); Mean Corpuscular HGB Conc 33 gm/dL (32-36); Mean Corpuscular Hemoglobin 29 pg (26-34); Mean Corpuscular Volume 87 fL (80-100); Monocytes Percent Auto 7.8 % (0.0-11.0); Neutrophils Absolute Auto 3.23 K/uL (1.7-7.0); Neutrophils Percent Auto 70.3 % (42.0-72.0); Platelet Count* 199 K/uL (140-440); RDW Coefficient of Variation % 13.5 % (11.5-15.5); Red Blood Count 4.46 m/uL (4.00-5.20); White Blood Count* 4.59 K/uL (4.50-11.00)
[2022-07-02 08:44] LABS: Slide Review Reflex No
[2022-07-02 08:48] LABS: Albumin* 4.1 g/dL (3.3-5.0)
[2022-07-02 08:49] LABS: Chloride* 111 mmol/L (96-114); Potassium* 4.2 mmol/L (3.6-5.1); Sodium* 144 mmol/L (135-149)
[2022-07-02 08:51] LABS: Alkaline Phosphatase* 98 U/L (40-150); Aspartate Amino Transferase* 25 U/L (12-35); Bilirubin Total* 0.5 mg/dL (0.1-1.5); Blood Urea Nitrogen* 17 mg/dL (7-30); Carbon Dioxide* 28 mmol/L (20-32); Creatinine* 0.6 mg/dL (0.5-1.5); Est. Creatinine Clearance* 51.02; Estimated Glomerular Filt Rate 102 ml/min
[2022-07-02 08:52] LABS: Alanine Aminotransferase* 27 U/L (4-35); Calcium* 9.1 mg/dL (8.4-10.6); Glucose* 99 mg/dL (60-115)
[2022-07-02] MEDS: PERTUZUMAB 420 MG, TUBING SECONDARY 1 EACH in 0.9 % SODIUM CHLORIDE 250 ml 250 ML 528 MG IV (10:14)
--- NOTE | 2022-07-02 11:06 | PC.NURSE ---
pt present today for infusion at [facility]. port accessed per protocol and RN did not receive blood return. Instilled TAP and after over 1 hour only 1 ml of blood tinged liquid was able to be aspirated. Port used as blood was noted. RN contacted surgery nurse, KIRSTEN Morris who will communicate the ongoing issues with Melody's port to the on-call surgeon. Any recommendations for intervention will be communicated to Melody.
--- NOTE | 2022-07-09 13:57 | PC.NURSE ---
Addendum entered by Tiffany Rene RN 07/09/22 14:31: Yolis Hernandez APRN spoke with Dr. Bryant, surgeon regarding pt's port dye study. CT Angio was ordered. Radiology will call pt to schedule. RN called pt with this update. Melody has no facial, neck, shoulder, arm swelling. She has no shortness of breath or chest pain. Of note, should this port need to be removed, pt's preference would be to complete her treatment using peripheral IV's. Original Note: Yolis Hernandez APRN received a call from Dr. Mathew, radiologist, with a report on Melody's port dye study today. It has been determined that we can NOT currently use the port until further investigation. The location has changed and there is questionable fibrin sheath vs. clot vs. stenosis in the area of the port catheter tip. JIMMY Lagos will discuss wtih Dr. Kaur to determine next steps for imaging work up. Melody updated with this info and reassured pt we would reach out with more info when known.
--- NOTE | 2022-07-23 08:21 | PC.NURSE ---
Accessed port. Flushed without difficulty. Unable to draw blood back. Per [employer], do not attempt to draw blood if the initial try is unsuccessful. Okay to flush and uses port if it flushes without resistance. Lab was called to do a peripheral blood draw. Patient is on anticoagulation.
[2022-07-23] MEDS: PERTUZUMAB 420 MG, TUBING SECONDARY 1 EACH in 0.9 % SODIUM CHLORIDE 250 ml 250 ML 528 MG IV (10:57)
[2022-07-23] MEDS: SODIUM CHLORIDE 0.9 % (FLUSH) 10 ML SYRINGE IVF (11:47)
[2022-07-23] MEDS: HEPARIN 500 UNIT/5 ML SYRINGE IVF (11:47)
--- NOTE | 2022-07-30 12:59 | URNOTE ---
REceived request for prior auth for Denosumab ([id number]). Per [employer] this has been approved 07/30/2022-05/02/2023. Case #[id number]
--- NOTE | 2022-08-03 11:13 | ONC.NURNOTE ---
Addendum entered by Lashanda Hart RN 08/03/22 14:01: Patient notified that Dr. Cason said to start to now. Patient aware. Original Note: Called patient to determine if she has an appointment with dentist. This is scheduled for 08/12/2022, however she is unsure of whether she would like to get this or not. She was encouraged to talk with her dentist regarding this, no hurry on starting. Patient also questioned whether she should be starting her femara prior to completing her perjeta/herceptin. With her tamoxifen she was told to wait. Patient won't complete until 10/2022, left message for oncologist to determine start of femara.
[2022-08-13 09:05] VITALS: BP 137/73; PULSE 76; RESP 16; TEMP 36.1; O2SAT 97
[2022-08-13 09:20] LABS: Basophils Percent Auto 0.7 % (0.0-3.0); Eosinophils Percent Auto 4.1 % (0.0-7.0); Hematocrit 38.5 % (33.0-51.0); Hemoglobin* 12.1 gm/dL (12.0-16.0); Lymphocytes Percent Auto 19.7 % (20-44); Mean Corpuscular HGB Conc 31 gm/dL (32-36); Mean Corpuscular Hemoglobin 28 pg (26-34); Mean Corpuscular Volume 89 fL (80-100); Monocytes Percent Auto 9.2 % (0.0-11.0); Neutrophils Percent Auto 66.3 % (42.0-72.0); Platelet Count* 207 K/uL (140-440); Red Blood Count 4.34 m/uL (4.00-5.20); White Blood Count* 4.36 K/uL (4.50-11.00)
[2022-08-13 09:29] LABS: Slide Review Reflex No
[2022-08-13 09:36] LABS: Chloride* 107 mmol/L (96-114)
[2022-08-13 09:37] LABS: Sodium* 140 mmol/L (135-149)
[2022-08-13 09:39] LABS: Creatinine* 0.6 mg/dL (0.5-1.5); Est. Creatinine Clearance* 51.02; Estimated Glomerular Filt Rate 102 ml/min
[2022-08-13 09:40] LABS: Alanine Aminotransferase* 21 U/L (4-35); Alkaline Phosphatase* 95 U/L (40-150); Aspartate Amino Transferase* 20 U/L (12-35); Bilirubin Total* 0.4 mg/dL (0.1-1.5); Blood Urea Nitrogen* 12 mg/dL (7-30); Calcium* 8.7 mg/dL (8.4-10.6); Carbon Dioxide* 28 mmol/L (20-32); Glucose* 93 mg/dL (60-115)
[2022-08-13] MEDS: PERTUZUMAB 420 MG, TUBING SECONDARY 1 EACH in 0.9 % SODIUM CHLORIDE 250 ml 250 ML 528 MG IV (10:20)
[2022-08-13] MEDS: 0.9 % SODIUM CHLORIDE 250 ml IV (12:19)
[2022-08-13] MEDS: HEPARIN 500 UNIT/5 ML SYRINGE IVF (12:19)
[2022-08-13] MEDS: SODIUM CHLORIDE 0.9 % (FLUSH) 10 ML SYRINGE IVF (12:19)
--- NOTE | 2022-08-17 15:36 | ONC.NURNOTE ---
Patient came into clinic stating that she noted a hardened area in the shower this morning and asked for someone to look at the area. Final Expense Agent observed a hardened vein like area under the right axilla to mid-bicep. Patient notes that this is new and wondering what she should do about this. Final Expense Agent talked with oncologist to determine where patient needs to be seen. Oncologist notes that could be cording, which could be looked at by PT or PCP. Recommends visiting with PCP, and patient was notified of this. She was told to be seen within the week and if notes any pain or redness with the area, so be seen sooner. Patient will talk with surgeon, as she was who sent her to PT last time.
[2022-09-03 08:13] VITALS: BP 130/76; PULSE 72; RESP 16; TEMP 35.9
[2022-09-03 08:20] LABS: Basophils Percent Auto 0.5 % (0.0-3.0); Eosinophils Percent Auto 3.3 % (0.0-7.0); Hematocrit 40.5 % (33.0-51.0); Hemoglobin* 12.9 gm/dL (12.0-16.0); Lymphocytes Percent Auto 19.4 % (20-44); Mean Corpuscular HGB Conc 32 gm/dL (32-36); Mean Corpuscular Hemoglobin 28 pg (26-34); Mean Corpuscular Volume 88 fL (80-100); Neutrophils Percent Auto 67.8 % (42.0-72.0); Platelet Count* 200 K/uL (140-440); RDW Coefficient of Variation % 13.4 % (11.5-15.5); Red Blood Count 4.59 m/uL (4.00-5.20); White Blood Count* 3.91 K/uL (4.50-11.00)
[2022-09-03 08:31] LABS: Slide Review Reflex No
[2022-09-03 08:43] LABS: Albumin* 4.3 g/dL (3.3-5.0)
[2022-09-03 08:44] LABS: Chloride* 107 mmol/L (96-114); Potassium* 4.5 mmol/L (3.6-5.1); Sodium* 142 mmol/L (135-149)
[2022-09-03 08:46] LABS: Aspartate Amino Transferase* 25 U/L (12-35); Bilirubin Total* 0.8 mg/dL (0.1-1.5); Carbon Dioxide* 29 mmol/L (20-32); Creatinine* 0.6 mg/dL (0.5-1.5); Est. Creatinine Clearance* 51.02; Estimated Glomerular Filt Rate 102 ml/min
[2022-09-03 08:47] LABS: Alanine Aminotransferase* 22 U/L (4-35); Alkaline Phosphatase* 91 U/L (40-150); Blood Urea Nitrogen* 17 mg/dL (7-30); Calcium* 9.1 mg/dL (8.4-10.6); Glucose* 100 mg/dL (60-115); Total Protein* 7.4 g/dL (6.0-8.3)
[2022-09-03] MEDS: PERTUZUMAB 420 MG, TUBING SECONDARY 1 EACH in 0.9 % SODIUM CHLORIDE 250 ml 250 ML 528 MG IV (10:32)
[2022-09-03] MEDS: HEPARIN 500 UNIT/5 ML SYRINGE IVF (15:30)
[2022-09-03] MEDS: 0.9 % SODIUM CHLORIDE 250 ml IV (15:30)
[2022-09-03] MEDS: SODIUM CHLORIDE 0.9 % (FLUSH) 10 ML SYRINGE IVF (15:30)
--- NOTE | 2022-09-03 15:56 | ONC.NURNOTE ---
Addendum entered by Barbara Yanez RN 09/07/22 08:44: Pt called today questioning how long she should be on Eliquis. Per Yolis Conley APRN, pt should continue taking Eliquis until she is reevaluated by Dr. Cason on October 15. Pt is not to have any dental work at this time. If her teeth are starting to bother her, she needs to call [facility] to figure out a plan. Pt verbalized understanding of instructions. Original Note: Alert and oriented. states ativan somewhat helpful for sleep. states occ diarrhea. states pain with movement lt arm. states feels like a jose m horse. rt upper arm thrombos is healing less tender. Yolis marin APRN saw Melody today. no dental work. she is to stay on Eliquist. pt having a CT,.
[2022-09-24 09:13] VITALS: BP 158/70; PULSE 72; RESP 16; TEMP 35.8; O2SAT 100
[2022-09-24 09:29] LABS: Basophils Percent Auto 0.8 % (0.0-3.0); Eosinophils Percent Auto 4.5 % (0.0-7.0); Hematocrit 38.9 % (33.0-51.0); Hemoglobin* 12.5 gm/dL (12.0-16.0); Immature Granulocytes Pct Auto 0.3 %; Mean Corpuscular HGB Conc 32 gm/dL (32-36); Mean Corpuscular Hemoglobin 29 pg (26-34); Mean Corpuscular Volume 89 fL (80-100); Monocytes Percent Auto 6.4 % (0.0-11.0); Platelet Count* 215 K/uL (140-440); RDW Coefficient of Variation % 13.1 % (11.5-15.5); Red Blood Count 4.39 m/uL (4.00-5.20); White Blood Count* 3.59 K/uL (4.50-11.00)
[2022-09-24 09:31] LABS: Slide Review Reflex No
[2022-09-24 09:42] LABS: Albumin* 4.2 g/dL (3.3-5.0); Chloride* 106 mmol/L (96-114); Potassium* 4.1 mmol/L (3.6-5.1); Sodium* 142 mmol/L (135-149)
[2022-09-24 09:43] LABS: Creatinine* 0.6 mg/dL (0.5-1.5); Est. Creatinine Clearance* 51.02; Estimated Glomerular Filt Rate 102 ml/min
[2022-09-24 09:44] LABS: Alanine Aminotransferase* 21 U/L (4-35); Alkaline Phosphatase* 80 U/L (40-150); Aspartate Amino Transferase* 23 U/L (12-35); Bilirubin Total* 0.6 mg/dL (0.1-1.5); Blood Urea Nitrogen* 14 mg/dL (7-30); Calcium* 9.1 mg/dL (8.4-10.6); Carbon Dioxide* 27 mmol/L (20-32); Glucose* 128 mg/dL (60-115)
[2022-09-24] MEDS: PERTUZUMAB 420 MG, TUBING SECONDARY 1 EACH in 0.9 % SODIUM CHLORIDE 250 ml 250 ML 528 MG IV (11:02)
[2022-09-24] MEDS: HEPARIN 500 UNIT/5 ML SYRINGE IVF (16:08)
[2022-09-24] MEDS: 0.9 % SODIUM CHLORIDE 250 ml IV (16:09)
[2022-09-24] MEDS: SODIUM CHLORIDE 0.9 % (FLUSH) 10 ML SYRINGE IVF (16:09)
[2022-10-15 09:35] LABS: Basophils Percent Auto 0.8 % (0.0-3.0); Hematocrit 38.3 % (33.0-51.0); Hemoglobin* 12.5 gm/dL (12.0-16.0); Immature Granulocytes Pct Auto 0.3 %; Lymphocytes Percent Auto 21.9 % (20-44); Mean Corpuscular HGB Conc 33 gm/dL (32-36); Mean Corpuscular Hemoglobin 29 pg (26-34); Mean Corpuscular Volume 87 fL (80-100); Monocytes Percent Auto 5.9 % (0.0-11.0); Neutrophils Percent Auto 67.1 % (42.0-72.0); Platelet Count* 203 K/uL (140-440); RDW Coefficient of Variation % 13.1 % (11.5-15.5); Red Blood Count 4.38 m/uL (4.00-5.20); White Blood Count* 3.75 K/uL (4.50-11.00)
[2022-10-15 09:38] LABS: Slide Review Reflex No
[2022-10-15 09:51] LABS: Albumin* 4.1 g/dL (3.3-5.0)
[2022-10-15 09:52] LABS: Chloride* 107 mmol/L (96-114); Potassium* 3.5 mmol/L (3.6-5.1); Sodium* 142 mmol/L (135-149)
[2022-10-15 09:54] LABS: Aspartate Amino Transferase* 27 U/L (12-35); Bilirubin Total* 0.5 mg/dL (0.1-1.5); Carbon Dioxide* 21 mmol/L (20-32); Creatinine* 0.6 mg/dL (0.5-1.5); Est. Creatinine Clearance* 51.02; Estimated Glomerular Filt Rate 102 ml/min; Total Protein* 6.9 g/dL (6.0-8.3)
[2022-10-15 09:55] LABS: Alanine Aminotransferase* 26 U/L (4-35); Alkaline Phosphatase* 87 U/L (40-150); Blood Urea Nitrogen* 16 mg/dL (7-30); Calcium* 8.9 mg/dL (8.4-10.6); Glucose* 125 mg/dL (60-115)
[2022-10-15] MEDS: PERTUZUMAB 420 MG, TUBING SECONDARY 1 EACH in 0.9 % SODIUM CHLORIDE 250 ml 250 ML 528 MG IV (10:53)
[2022-10-15] MEDS: 0.9 % SODIUM CHLORIDE 250 ml IV (10:57)
[2022-10-15] MEDS: HEPARIN 500 UNIT/5 ML SYRINGE IVF (10:58)
[2022-10-15] MEDS: SODIUM CHLORIDE 0.9 % (FLUSH) 10 ML SYRINGE IVF (10:58)
--- NOTE | 2022-10-21 10:27 | URNOTE ---
REceived request for prior auth Pertuzumab ([id number]) has been approved 10/21/2022-05/02/23, Case #[id number] and Trastuzumab ([id number]) has been approved 10/20/22-05/02/2023 Case #[id number].
[2022-11-05 08:37] VITALS: BP 153/80; PULSE 70; RESP 16; TEMP 35.9; O2SAT 93
[2022-11-05 09:17] LABS: Basophils Absolute Auto 0.04 K/uL (0.00-0.30); Basophils Percent Auto 0.9 % (0.0-3.0); Eosinophils Absolute Auto 0.19 K/uL (0.00-0.50); Eosinophils Percent Auto 4.2 % (0.0-7.0); Hematocrit 37.3 % (33.0-51.0); Hemoglobin* 12.2 gm/dL (12.0-16.0); Lymphocytes Absolute Auto 0.96 K/uL (0.90-2.90); Lymphocytes Percent Auto 21.3 % (20-44); Mean Corpuscular HGB Conc 33 gm/dL (32-36); Mean Corpuscular Hemoglobin 28 pg (26-34); Mean Corpuscular Volume 87 fL (80-100); Monocytes Percent Auto 7.6 % (0.0-11.0); Neutrophils Absolute Auto 2.97 K/uL (1.7-7.0); Platelet Count* 207 K/uL (140-440); RDW Coefficient of Variation % 13.1 % (11.5-15.5); Red Blood Count 4.31 m/uL (4.00-5.20)
[2022-11-05 09:21] LABS: Slide Review Reflex No
[2022-11-05 09:26] LABS: Chloride* 107 mmol/L (96-114); Sodium* 141 mmol/L (135-149)
[2022-11-05 09:27] LABS: Potassium* 3.9 mmol/L (3.6-5.1)
[2022-11-05 09:29] LABS: Alkaline Phosphatase* 87 U/L (40-150); Aspartate Amino Transferase* 23 U/L (12-35); Bilirubin Total* 0.5 mg/dL (0.1-1.5); Blood Urea Nitrogen* 18 mg/dL (7-30); Carbon Dioxide* 25 mmol/L (20-32); Creatinine* 0.6 mg/dL (0.5-1.5); Est. Creatinine Clearance* 51.02; Estimated Glomerular Filt Rate 102 ml/min
[2022-11-05 09:30] LABS: Alanine Aminotransferase* 22 U/L (4-35); Calcium* 9.1 mg/dL (8.4-10.6); Glucose* 107 mg/dL (60-115)
[2022-11-05] MEDS: PERTUZUMAB 420 MG, TUBING SECONDARY 1 EACH in 0.9 % SODIUM CHLORIDE 250 ml 250 ML 528 MG IV (10:31)
[2022-11-05] MEDS: 0.9 % SODIUM CHLORIDE 250 ml IV (12:41)
[2022-11-05] MEDS: HEPARIN 500 UNIT/5 ML SYRINGE IVF (12:41)
[2022-11-05] MEDS: SODIUM CHLORIDE 0.9 % (FLUSH) 10 ML SYRINGE IVF (12:41)
== END 2022-12-07 23:59 | disposition home or self-care (01) ==
LOC: CCIC 08:31
PROVIDERS: Clinical Nurse Specialist; PCP Family Medicine; Referring Provider Family Medicine; Visit Provider Internal Medicine Hematology & Oncology
DX: C50.911 Malignant neoplasm of unspecified site of right female breast (principal); Z17.0 Estrogen receptor positive status [ER+]; Z79.811 Long term (current) use of aromatase inhibitors; Z90.13 Acquired absence of bilateral breasts and nipples; F41.9 Anxiety disorder, unspecified; G47.00 Insomnia, unspecified; Z86.718 Personal history of other venous thrombosis and embolism; Z79.01 Long term (current) use of anticoagulants
CPT/HCPCS: 36415; 36591; 80053; 85025; 96376; 96413; 96417; 99211; 99212; 99214; 99215; J1642; J2997; J7050; J9306; J9355

== ENCOUNTER 2023-01-19 15:34 | Outpatient (CLI) | payer OTHER, SELFPAY | END 2023-01-19 15:35 | disposition home or self-care (01) | LOC: NFLDREF 01-20 07:37 | PROVIDERS: PCP Family Medicine; Referring Provider Family Medicine; Visit Provider Family Medicine | DX: E03.9 Hypothyroidism, unspecified (principal) | CPT/HCPCS: 84439; 84443 ==

== ENCOUNTER 2023-02-17 10:59 | Outpatient (CLI) | payer OTHER, SELFPAY ==
--- NOTE | 2023-02-17 11:15 | CRLHL7_ITS ---
For Patients: As a result of the Century Cures Act, medical imaging exams and procedure reports are released immediately into your electronic medical record. You may view this report before your referring provider. If you have questions, please contact your health care provider. INDICATION: Breast cancer. Mastectomy. Chemotherapy and radiation therapy. Right axillary lymph node dissection. Follow-up a postoperative seroma. TECHNIQUE: Directed ultrasound of the right axilla with this radiologist present. COMPARISON : August 19, 2022. FINDINGS: Resolution of the previously described seroma. No underlying mass or fluid collection. These findings were discussed briefly with the patient. IMPRESSION: Negative directed right axillary ultrasound. Dictated by Omar Hernandez MD @ 02/17/2023 12:08:01 PM (Electronically Signed)
--- NOTE | 2023-02-17 15:00 | CRLHL7_ITS ---
For Patients: As a result of the 21st Century Cures Act, medical imaging exams and procedure reports are released immediately into your electronic medical record. You may view this report before your referring provider. If you have questions, please contact your health care provider. 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 TECHNIQUE: CT angiogram chest with contrast, pulmonary embolism protocol. Multiplanar axial, coronal, and sagittal reformats are included. MIP images to improve detection of pulmonary emboli are included. Intravenous contrast: 95 mL Isovue 370 FINDINGS: PE: Well-timed contrast bolus. Contrast was injected from the left arm. The left innominate vein is small and there is significant collateralization through the central upper chest and lower neck. The left innominate vein may be almost nearly completely occluded at its junction with the SVC. There is collateralization into the azygous and danilo azygous veins. These are not dilated. Normal caliber of the SVC. No pulmonary emboli. Normal caliber main pulmonary artery. Normal sized right heart chambers. No reflux of contrast below the diaphragm. There is a right internal jugular approach chest port with distal tip at the innominate vein. Heart and great vessels: No pericardial effusion. Normal cardiac chamber size. No atherosclerotic plaques. No aortic aneurysm. Lungs: Inspiratory phase imaging. No nodules or masses. No consolidations. Normal appearance of the pulmonary interstitium. Pleura: No pleural effusion. No pneumothorax. Airway: Normal tracheobronchial tree. Lymph nodes: No thoracic adenopathy. Mediastinum: No pneumomediastinum. Bones: No fractures. No focal bone lesions. Normal for age. Chest wall: Normal. No masses. Upper abdomen: Small hiatal hernia. Right upper pole punctate nonobstructing calculus. IMPRESSION: 1. No pulmonary embolus. 2. 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 Please note that all CT scans at this facility use dose modulation, iterative reconstruction, and/or weight-based dosing when appropriate to reduce radiation dose to as low as reasonably achievable. Dictated by Celine Bridges MD @ 02/19/2023 11:15:28 AM (Electronically Signed)
== END 2023-02-17 11:00 | disposition home or self-care (01) ==
LOC: US 10:59
PROVIDERS: PCP Family Medicine; Visit Provider Physician Assistant
DX: C50.911 Malignant neoplasm of unspecified site of right female breast (principal); R07.89 Other chest pain; T82.868A Thrombosis due to vascular prosthetic devices, implants and grafts, initial encounter
CPT/HCPCS: 36415; 71275; 76882; 82565; Q9967

== ENCOUNTER 2023-02-23 11:26 | Emergency (ER) | payer OTHER, SELFPAY ==
[2023-02-23] VITALS (31 sets, daily range): BP systolic 135–179; BP diastolic 68–100; PULSE 71–96; RESP 16; TEMP 36.7; O2SAT 90–98; BMI 28.3
[2023-02-23 12:13] LABS: Troponin, Point-of-Care* 0.02 ng/ml (0.01-0.04)
[2023-02-23 12:53] LABS: Lactate* 2.5 mmol/L (0.5-1.9)
--- NOTE | 2023-02-23 12:59 | CRLHL7_ITS ---
For Patients: As a result of the Century Cures Act, medical imaging exams and procedure reports are released immediately into your electronic medical record. You may view this report before your referring provider. If you have questions, please contact your health care provider. INDICATION: Short of breath, tachycardia COMPARISON: CT angiogram PE study 02/17/2023 and 07/10/2022. TECHNIQUE: CT angiogram chest with contrast, pulmonary embolism protocol. Multiplanar axial, coronal, and sagittal reformats are included. MIP images to improve detection of pulmonary emboli are included. Intravenous contrast: 95 mL Isovue 370 FINDINGS: PE: Well-timed contrast bolus. Again noted is severe stenosis of the innominate vein with significant collateralization through the chest and neck. Left internal jugular vein approach chest port. No pulmonary emboli. Normal caliber main pulmonary artery. Normal sized right heart chambers. No reflux of contrast below the diaphragm. Heart and great vessels: No pericardial effusion. Normal cardiac chamber size. No atherosclerotic plaques. No aortic aneurysm. Lungs: Inspiratory phase imaging. No nodules or masses. No consolidations. Normal appearance of the pulmonary interstitium. Pleura: No pleural effusion. No pneumothorax. Airway: Normal tracheobronchial tree. Lymph nodes: No thoracic adenopathy. Mediastinum: No pneumomediastinum. Bones: No fractures. No focal bone lesions. Normal for age. Chest wall: Bilateral mastectomy. Surgical clips right axilla. Upper abdomen: Cholecystectomy. IMPRESSION: 1. No pulmonary embolus. 2. Significant innominate vein stenosis. Recommend future contrast injections through the right arm. Please note that all CT scans at this facility use dose modulation, iterative reconstruction, and/or weight-based dosing when appropriate to reduce radiation dose to as low as reasonably achievable. Dictated by Celine Bridges MD @ 02/23/2023 2:51:46 PM (Electronically Signed)
--- NOTE | 2023-02-23 12:59 | ED.NURSE ---
Ambulated patient. Was 93-95% on RA. HR max was 98. MD would like to do a CT of chest.
[2023-02-23 13:07] LABS: Basophils Absolute Auto 0.04 K/uL (0.00-0.30); Basophils Percent Auto 0.7 % (0.0-3.0); Eosinophils Absolute Auto 0.15 K/uL (0.00-0.50); Eosinophils Percent Auto 2.8 % (0.0-7.0); Hematocrit 41.5 % (33.0-51.0); Hemoglobin* 13.2 gm/dL (12.0-16.0); Lymphocytes Absolute Auto 1.23 K/uL (0.90-2.90); Mean Corpuscular HGB Conc 32 gm/dL (32-36); Mean Corpuscular Hemoglobin 28 pg (26-34); Mean Corpuscular Volume 88 fL (80-100); Monocytes Percent Auto 7.3 % (0.0-11.0); Neutrophils Absolute Auto 3.54 K/uL (1.7-7.0); Neutrophils Percent Auto 66.2 % (42.0-72.0); Platelet Count* 158 K/uL (140-440); RDW Coefficient of Variation % 13.6 % (11.5-15.5); Red Blood Count 4.73 m/uL (4.00-5.20); White Blood Count* 5.35 K/uL (4.50-11.00)
[2023-02-23 13:09] LABS: Slide Review Reflex No
[2023-02-23 13:10] LABS: Albumin* 4.6 g/dL (3.3-5.0); Chloride* 107 mmol/L (96-114)
[2023-02-23 13:11] LABS: Potassium* 4.4 mmol/L (3.6-5.1); Sodium* 142 mmol/L (135-149)
[2023-02-23 13:13] LABS: Creatinine* 0.9 mg/dL (0.5-1.5); Est. Creatinine Clearance* 51.02; Estimated Glomerular Filt Rate 73 ml/min
[2023-02-23] MEDS: 0.9 % SODIUM CHLORIDE 1000 ml 1,000 ML IV (13:13)
[2023-02-23 13:14] LABS: Alanine Aminotransferase* 24 U/L (4-35); Alkaline Phosphatase* 91 U/L (40-150); Anion Gap 10 mEq/L (7-15); Aspartate Amino Transferase* 45 U/L (12-35); Bilirubin Direct* 0.2 mg/dL (0.0-0.5); Bilirubin Total* 0.8 mg/dL (0.1-1.5); Blood Urea Nitrogen* 17 mg/dL (7-30); Calcium* 9.4 mg/dL (8.4-10.6); Carbon Dioxide* 25 mmol/L (20-32); Glucose* 82 mg/dL (60-115); Lipase* 211 U/L (23-300); Total Protein* 7.9 g/dL (6.0-8.3)
[2023-02-23 13:15] LABS: D Dimer Quantitative* 0.37 ug/ml (0.00-0.50)
[2023-02-23 13:16] LABS: C Reactive Protein* 0.6 mg/dL (0.5-1.0)
--- NOTE | 2023-02-23 14:23 | ED_ITS ---
HPI - General Adult General Chief complaint: Chest Pain <Kristina Aguiar MD - Last Filed: 02/23/23 15:40> Stated complaint: Chest pain, elevated heartrate <Kristina Aguiar MD - Last Filed: 02/23/23 15:40> Time Seen by Provider: 02/23/23 12:08 <Kristina Aguiar MD - Last Filed: 02/23/23 15:40> Source: patient <Kristina Aguiar MD - Last Filed: 02/23/23 15:40> Mode of arrival: ambulatory <Kristina Aguiar MD - Last Filed: 02/23/23 15:40> Limitations: no limitations <Kristina Aguiar MD - Last Filed: 02/23/23 15:40> History of Present Illness HPI narrative: Patient is a 62-year-old female presenting today with palpitations, chest pressure and mild shortness of breath. She states that her pulse will race and go above 100 with any physical activity. She states that she feels shows slight shortness of breath with any exertion. Generally she feels okay if she is sitting still. She denies any recent illness. She states that she did have a CT scan done recently to look for a blood clot at the end of her port, she feels like her symptoms all started shortly after her CT scan. She denies fevers or chills. No nausea or vomiting. She denies any diaphoresis. She is currently on Eliquis. Of note, patient does state that she had a superficial thrombophlebitis while on Eliquis. The Eliquis was started after the blood clot at the end of her port was found. Port is placed secondary to breast cancer for which she recently finished chemo and radiation therapy. <Kristina Aguiar MD - Last Filed: 02/23/23 15:40> Related Data Home medications: Home Medications Medication Instructions Recorded Confirmed cholecalciferol (vitamin D3) 10 See Rx Instructions PO QDAY 10/15/22 02/23/23 mcg (400 unit) capsule calcium carbonate 600 mg-vitamin tab PO BID 02/23/23 D3 10 mcg (400 unit) tablet Previous Rx's Medication Instructions Recorded lorazepam 0.5 mg tablet (Ativan) 0.5 mg PO HS PRN anxiety #60 tabs 07/23/22 levothyroxine 100 mcg tablet 100 mcg PO QDAY #90 tabs 01/19/23 Eliquis 5 mg tablet (apixaban) 5 mg PO BID blood thinner #60 tabs 02/10/23 letrozole 2.5 mg tablet (Femara) 2.5 mg PO QDAY #90 tabs 02/11/23 <Kristina Aguiar MD - Last Filed: 02/23/23 15:40> Allergies/adverse reactions: Allergies Allergy/AdvReac Type Severity Reaction Status Date / Time latex Allergy Severe Hives Verified 02/23/23 11:31 kiwi Allergy Intermediate itching Verified 02/23/23 11:31 <Kristina Aguiar MD - Last Filed: 02/23/23 15:40> Review of Systems Status of ROS: Reports: 10 or more systems reviewed and unremarkable except as noted in History and below <Kristina Aguiar MD - Last Filed: 02/23/23 15:40> [facility] Medical History: Medical History Hypokalemia ?E87.6 - Hypokalemia (ICD-10) Lipoma (06/17/11) ?D17.9 - Benign lipomatous neoplasm, unspecified (ICD-10) Constipation ?K59.00 - Constipation, unspecified (ICD-10) Arthralgia ?M25.50 - Pain in unspecified joint (ICD-10) Uterine leiomyoma ?D25.9 - Leiomyoma of uterus, unspecified (ICD-10) Reduced libido ?R68.82 - Decreased libido (ICD-10) Invasive ductal carcinoma of left breast, stage 1 ?C50.912 - Malignant neoplasm of unspecified site of left female breast (ICD- 10) <Kristina Aguiar MD - Last Filed: 02/23/23 15:40> Surgical History: Surgical History History of carpal tunnel surgery of left wrist (06/26/11) ?Z98.890 - Other specified postprocedural states (ICD-10) 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) ?Z96.641 - Presence of right artificial hip joint (ICD-10) Status post total replacement of left hip (05/04/17) ?Z96.642 - Presence of left artificial hip joint (ICD-10) S/P bilateral mastectomy ?Z90.13 - Acquired absence of bilateral breasts and nipples (ICD-10) S/P breast lumpectomy ?Z98.890 - Other specified postprocedural states (ICD-10) History of cholecystectomy ?Z90.49 - Acquired absence of other specified parts of digestive tract (ICD- 10) History of endometrial ablation ?Z98.890 - Other specified postprocedural states (ICD-10) H/O tubal ligation ?Z98.51 - Tubal ligation status (ICD-10) Status post bilateral salpingo-oophorectomy (BSO) ?Z90.722 - Acquired absence of ovaries, bilateral (ICD-10) <Kristina Aguiar MD - Last Filed: 02/23/23 15:40> Social History: Social History Smoking Status: Never smoker Do you use any of these nicotine containing products: None Second hand tobacco smoke exposure: No How often do you have a drink containing alcohol: monthly or less How often do you have six or more drinks on one occasion: Never AUDIT-C Alcohol total score: 1 Non-prescribed substance use: marijuana (any form) Non-prescribed substance use details: recent gummies for hot flashes service: No <Kristina Aguiar MD - Last Filed: 02/23/23 15:40> Exam Narrative: Exam Narrative: Well-nourished well-developed patient in no acute distress. Alert and oriented. Answers questions appropriately. Mood and affect are appropriate. Thoughts are goal oriented and rational. No tangential or magical thinking noted. Patient speaks in full sentences without needing to catch her breath. Patient is not tachycardic while in the ER. HEENT: Normocephalic atraumatic. Pupils are equally round reactive to light. Extraocular muscles are intact. Conjunctivae are moist without any icterus noted. Moist mucous membranes. Posterior pharynx is normal. Neck is soft without any lymphadenopathy or thyromegaly. No masses are appreciated. Cardiovascular: Heart is regular rate and rhythm S1 and S2 are present without any murmurs. I cannot reproduce her pain with palpation. Lungs: Clear to auscultation bilaterally no wheezes rhonchi or rales are appreciated. Patient takes deep breaths without any discomfort. Abdomen: Soft and nontender nondistended with normal bowel sounds. Extremities: Bilateral lower extremities are without edema. Skin: Well perfused without any obvious rashes. <Kristina Aguiar MD - Last Filed: 02/23/23 15:40> Const: Vital Signs, click to edit/add: Vital Signs - 24 hr 02/23/23 11:32 02/23/23 12:09 02/23/23 12:11 Temperature 98.1 F Pulse Rate 81 87 Pulse Rate [Pulse Oximeter] 82 Respiratory Rate 16 Blood Pressure 145/100 H Blood Pressure [Le ft Upper Arm] 145/82 H Pulse Oximetry 97 97 95 Oxygen Delivery Me thod Room Air 02/23/23 12:23 02/23/23 12:30 02/23/23 12:42 Temperature Pulse Rate 85 84 75 Pulse Rate [Pulse Oximeter] Respiratory Rate Blood Pressure 159/68 H 142/74 H Blood Pressure [Le ft Upper Arm] Pulse Oximetry 94 92 97 Oxygen Delivery Me thod 02/23/23 13:00 02/23/23 13:01 02/23/23 13:21 Temperature Pulse Rate 76 77 72 Pulse Rate [Pulse Oximeter] Respiratory Rate Blood Pressure 135/96 H 161/89 H Blood Pressure [Le ft Upper Arm] Pulse Oximetry 93 97 93 Oxygen Delivery Me thod 02/23/23 13:30 02/23/23 13:47 02/23/23 14:00 Temperature Pulse Rate 80 76 74 Pulse Rate [Pulse Oximeter] Respiratory Rate Blood Pressure 143/79 H Blood Pressure [Le ft Upper Arm] Pulse Oximetry 95 92 96 Oxygen Delivery Me thod 02/23/23 14:01 02/23/23 14:21 02/23/23 14:30 Temperature Pulse Rate 76 72 73 Pulse Rate [Pulse Oximeter] Respiratory Rate Blood Pressure 153/79 H 157/85 H Blood Pressure [Le ft Upper Arm] Pulse Oximetry 95 96 94 Oxygen Delivery Me thod 02/23/23 14:41 02/23/23 15:00 02/23/23 15:01 Temperature Pulse Rate 71 74 72 Pulse Rate [Pulse Oximeter] Respiratory Rate Blood Pressure 167/80 H 173/84 H Blood Pressure [Le ft Upper Arm] Pulse Oximetry 93 93 94 Oxygen Delivery Me thod 02/23/23 15:02 02/23/23 15:22 02/23/23 15:30 Temperature Pulse Rate 72 73 79 Pulse Rate [Pulse Oximeter] Respiratory Rate Blood Pressure 175/83 H Blood Pressure [Le ft Upper Arm] Pulse Oximetry 97 98 94 Oxygen Delivery Me thod 02/23/23 15:42 02/23/23 16:36 02/23/23 16:37 Temperature Pulse Rate 76 96 92 Pulse Rate [Pulse Oximeter] Respiratory Rate Blood Pressure 166/79 H 172/90 H Blood Pressure [Le ft Upper Arm] Pulse Oximetry 95 96 95 Oxygen Delivery Me thod 02/23/23 16:41 02/23/23 17:00 02/23/23 17:01 Temperature Pulse Rate 94 92 90 Pulse Rate [Pulse Oximeter] Respiratory Rate Blood Pressure 170/89 H 179/98 H Blood Pressure [Le ft Upper Arm] Pulse Oximetry 95 92 91 Oxygen Delivery Me thod <Kristina Aguiar MD - Last Filed: 02/23/23 15:40> Vital Signs, click to edit/add: Vital Signs - 24 hr 02/23/23 11:32 02/23/23 12:09 02/23/23 12:11 Temperature 98.1 F Pulse Rate 81 87 Pulse Rate [Pulse Oximeter] 82 Respiratory Rate 16 Blood Pressure 145/100 H Blood Pressure [Le ft Upper Arm] 145/82 H Pulse Oximetry 97 97 95 Oxygen Delivery Me thod Room Air 02/23/23 12:23 02/23/23 12:30 02/23/23 12:42 Temperature Pulse Rate 85 84 75 Pulse Rate [Pulse Oximeter] Respiratory Rate Blood Pressure 159/68 H 142/74 H Blood Pressure [Le ft Upper Arm] Pulse Oximetry 94 92 97 Oxygen Delivery Me thod 02/23/23 13:00 02/23/23 13:01 02/23/23 13:21 Temperature Pulse Rate 76 77 72 Pulse Rate [Pulse Oximeter] Respiratory Rate Blood Pressure 135/96 H 161/89 H Blood Pressure [Le ft Upper Arm] Pulse Oximetry 93 97 93 Oxygen Delivery Me thod 02/23/23 13:30 02/23/23 13:47 02/23/23 14:00 Temperature Pulse Rate 80 76 74 Pulse Rate [Pulse Oximeter] Respiratory Rate Blood Pressure 143/79 H Blood Pressure [Le ft Upper Arm] Pulse Oximetry 95 92 96 Oxygen Delivery Me thod 02/23/23 14:01 02/23/23 14:21 02/23/23 14:30 Temperature Pulse Rate 76 72 73 Pulse Rate [Pulse Oximeter] Respiratory Rate Blood Pressure 153/79 H 157/85 H Blood Pressure [Le ft Upper Arm] Pulse Oximetry 95 96 94 Oxygen Delivery Me thod 02/23/23 14:41 02/23/23 15:00 02/23/23 15:01 Temperature Pulse Rate 71 74 72 Pulse Rate [Pulse Oximeter] Respiratory Rate Blood Pressure 167/80 H 173/84 H Blood Pressure [Le ft Upper Arm] Pulse Oximetry 93 93 94 Oxygen Delivery Me thod 02/23/23 15:02 02/23/23 15:22 02/23/23 15:30 Temperature Pulse Rate 72 73 79 Pulse Rate [Pulse Oximeter] Respiratory Rate Blood Pressure 175/83 H Blood Pressure [Le ft Upper Arm] Pulse Oximetry 97 98 94 Oxygen Delivery Me thod 02/23/23 15:42 02/23/23 16:36 02/23/23 16:37 Temperature Pulse Rate 76 96 92 Pulse Rate [Pulse Oximeter] Respiratory Rate Blood Pressure 166/79 H 172/90 H Blood Pressure [Le ft Upper Arm] Pulse Oximetry 95 96 95 Oxygen Delivery Me thod 02/23/23 16:41 02/23/23 17:00 02/23/23 17:01 Temperature Pulse Rate 94 92 90 Pulse Rate [Pulse Oximeter] Respiratory Rate Blood Pressure 170/89 H 179/98 H Blood Pressure [Le ft Upper Arm] Pulse Oximetry 95 92 91 Oxygen Delivery Me thod <Kristina Ellis MD - Last Filed: 02/23/23 17:45> Course Course ED Course: EKG, read by me, showed normal sinus rhythm with a pulse of 87. We did have the patient ambulate briskly around the ER, during this time her pulse did not go above 98, oxygen saturation remained between 93-97%. She did have very mild subjective shortness of breath. No chest pressure. Her lactate was slightly elevated at 2.5-patient received a L of normal saline. The remainder of her blood work including a CBC, D-dimer, chemistries, magnesium, LFTs, CRP were unremarkable. Troponin was within normal range. 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 Because of the patient's symptoms of chest pressure and shortness of breath with exertion, do recommend a stress test. Likely, we are able to do this while the patient is in the ER today. Care will be transferred to oncoming physician. <Kristina Aguiar MD - Last Filed: 02/23/23 15:40> Reevaluation(s) Time of Reevaluation #1: 17:00 <Kristina Ellis MD - Last Filed: 02/23/23 17:45> Reevaluation #1: Reviewed with Melody that her EKG is showing ischemic changes during the stress test. She did have symptomatic pain during the stress test that resolved with activity. She is confirmed to be pain-free at this time. Echo images are pending but preliminarily there is no definitive ischemia, need to await Cardiology review. She is on Eliquis for thrombus of her port reportedly. She may need to initiate aspirin. Will talk to Cardiology about her, her history certainly sounds concerning for exercise-induced ischemia. She is aware that I will be back to talk to her once of spoken to Cardiology. <Kristina Thompson MD - Last Filed: 02/23/23 17:45> Time of Reevaluation #2: 17:44 <Kristina Ellis MD - Last Filed: 02/23/23 17:45> Reevaluation #2: Have updated patient on the plan from Dr. La. Answered questions. We will discharge to home. Plan is for her to work at this point but if she is finding that she is getting significant symptoms during work, I certainly will provide a note to be out of work until she can get to the CT angiogram done. <Kristina Ellis MD - Last Filed: 02/23/23 17:45> Consultations Consultation #1: Spoke with Dr. La from [facility]. He actually read the patient's stress echo, echo is negative. He did look at the EKG changes, did recommend that she have a CT coronary angiogram which he will order and follow- up on. He states it will take over 3 weeks likely to get in to see them and he will just order the CT angiogram. He will follow-up on it for her. His office will contact her tomorrow to get this scheduled. <Kristina Ellis MD - Last Filed: 02/23/23 17:45> Time: 17:15 <Kristina Ellis MD - Last Filed: 02/23/23 17:45> Vital Signs Vital signs: Initial Vital Signs Temperature 98.1 F 02/23/23 11:32 Temperature Source Temporal Artery Scan 02/23/23 11:32 Pulse Rate 82 02/23/23 11:32 Pulse Rhythm Regular 02/23/23 11:32 Pulse Strength 3+ Normal 02/23/23 11:32 Respiratory Rate 16 02/23/23 11:32 Blood Pressure 145/82 H 02/23/23 11:32 Blood Pressure Mean 103 02/23/23 11:32 Blood Pressure Position Sitting 02/23/23 11:32 Pulse Oximetry 97 02/23/23 11:32 Oxygen Delivery Method Room Air 02/23/23 11:32 Vital Signs Temperature 98.1 F 02/23/23 11:32 Pulse Rate 82 02/23/23 11:32 Respiratory Rate 16 02/23/23 11:32 Blood Pressure 145/82 H 02/23/23 11:32 Pulse Oximetry 97 02/23/23 11:32 Oxygen Delivery Method Room Air 02/23/23 11:32 Temperature 98.1 F 02/23/23 11:32 Pulse Rate 90 02/23/23 17:01 Respiratory Rate 16 02/23/23 11:32 Blood Pressure 179/98 H 02/23/23 17:01 Pulse Oximetry 91 02/23/23 17:01 Oxygen Delivery Method Room Air 02/23/23 11:32 <Kristina Aguiar MD - Last Filed: 02/23/23 15:40> Initial Vital Signs Temperature 98.1 F 02/23/23 11:32 Temperature Source Temporal Artery Scan 02/23/23 11:32 Pulse Rate 82 02/23/23 11:32 Pulse Rhythm Regular 02/23/23 11:32 Pulse Strength 3+ Normal 02/23/23 11:32 Respiratory Rate 16 02/23/23 11:32 Blood Pressure 145/82 H 10/24/23 11:32 Blood Pressure Mean 103 02/23/23 11:32 Blood Pressure Position Sitting 02/23/23 11:32 Pulse Oximetry 97 02/23/23 11:32 Oxygen Delivery Method Room Air 02/23/23 11:32 Vital Signs Temperature 98.1 F 02/23/23 11:32 Pulse Rate 82 02/23/23 11:32 Respiratory Rate 16 02/23/23 11:32 Blood Pressure 145/82 H 02/23/23 11:32 Pulse Oximetry 97 02/23/23 11:32 Oxygen Delivery Method Room Air 02/23/23 11:32 Temperature 98.1 F 02/23/23 11:32 Pulse Rate 90 02/23/23 17:01 Respiratory Rate 16 02/23/23 11:32 Blood Pressure 179/98 H 02/23/23 17:01 Pulse Oximetry 91 02/23/23 17:01 Oxygen Delivery Method Room Air 02/23/23 11:32 <Kristina Ellis MD - Last Filed: 02/23/23 17:45> Medical Decision Making MDM Narrative Medical decision making narrative: 62-year-old female with chest pressure and shortness of breath with exertion. <Kristina Aguiar MD - Last Filed: 02/23/23 15:40> Lab Data Lab results reviewed: Yes I reviewed the patient's lab results <Kristina Aguiar MD - Last Filed: 02/23/23 15:40> Labs: Lab Results 02/23/23 02/23/23 02/23/23 Range/Units 11:52 11:52 11:52 WBC 5.35 (4.50-11.00) K/uL RBC 4.73 (4.00-5.20) m/uL Hgb 13.2 (12.0-16.0) gm/dL Hct 41.5 (33.0-51.0) % MCV 88 (80-100) fL MCH 28 (26-34) pg MCHC 32 (32-36) gm/dL RDW Coeff of Ael 13.6 (11.5-15.5) % Plt Count 158 (140-440) K/uL Neut % (Auto) 66.2 (42.0-72.0) % Lymph % (Auto) 23.0 (20-44) % Hancock % (Auto) 7.3 (0.0-11.0) % Eos % (Auto) 2.8 (0.0-7.0) % Baso % (Auto) 0.7 (0.0-3.0) % Neut # (Auto) 3.54 (1.7-7.0) K/uL Lymph # (Auto) 1.23 (0.90-2.90) K/uL Hancock # (Auto) 0.40 (0.00-0.90) K/UL Eos # (Auto) 0.15 (0.00-0.50) K/uL Baso # (Auto) 0.04 (0.00-0.30) K/uL Abs Immat Gran (auto) 0.00 (0.00-0.30) K/uL Imm/Tot Granulo (auto) 0.0 % D-Dimer Quant (PE/DVT) 0.37 (0.00-0.50) ug/ml Sodium Cancelled 142 Potassium Cancelled 4.4 Chloride Cancelled Carbon Dioxide Anion Gap BUN Creatinine Estimated Creat Clear Estimated GFR Glucose Lactate (0.5-1.9) mmol/L Calcium Magnesium (1.5-2.6) mg/dL Total Bilirubin (0.1-1.5) mg/dL Direct Bilirubin (0.0-0.5) mg/dL AST (12-35) U/L ALT (4-35) U/L Alkaline Phosphatase (40-150) U/L C-Reactive Protein (0.5-1.0) mg/dL Total Protein (6.0-8.3) g/dL Albumin (3.3-5.0) g/dL Lipase (23-300) U/L POC Troponin I (0.01-0.04) ng/ml 02/23/23 02/23/23 02/23/23 Range/Units 11:52 11:52 11:52 WBC (4.50-11.00) K/uL RBC (4.00-5.20) m/uL Hgb (12.0-16.0) gm/dL Hct (33.0-51.0) % MCV (80-100) fL MCH (26-34) pg MCHC (32-36) gm/dL RDW Coeff of Ale (11.5-15.5) % Plt Count (140-440) K/uL Neut % (Auto) (42.0-72.0) % Lymph % (Auto) (20-44) % Hancock % (Auto) (0.0-11.0) % Eos % (Auto) (0.0-7.0) % Baso % (Auto) (0.0-3.0) % Neut # (Auto) (1.7-7.0) K/uL Lymph # (Auto) (0.90-2.90) K/uL Hancock # (Auto) (0.00-0.90) K/UL Eos # (Auto) (0.00-0.50) K/uL Baso # (Auto) (0.00-0.30) K/uL Abs Immat Gran (auto) (0.00-0.30) K/uL Imm/Tot Granulo (auto) % D-Dimer Quant (PE/DVT) (0.00-0.50) ug/ml Sodium Potassium Chloride 107 Carbon Dioxide Cancelled 25 Anion Gap Cancelled 10 BUN Cancelled Creatinine Estimated Creat Clear Estimated GFR Glucose Lactate (0.5-1.9) mmol/L Calcium Magnesium (1.5-2.6) mg/dL Total Bilirubin (0.1-1.5) mg/dL Direct Bilirubin (0.0-0.5) mg/dL AST (12-35) U/L ALT (4-35) U/L Alkaline Phosphatase (40-150) U/L C-Reactive Protein (0.5-1.0) mg/dL Total Protein (6.0-8.3) g/dL Albumin (3.3-5.0) g/dL Lipase (23-300) U/L POC Troponin I (0.01-0.04) ng/ml 02/23/23 02/23/23 02/23/23 Range/Units 11:52 11:52 11:52 WBC (4.50-11.00) K/uL RBC (4.00-5.20) m/uL Hgb (12.0-16.0) gm/dL Hct (33.0-51.0) % MCV (80-100) fL MCH (26-34) pg MCHC (32-36) gm/dL RDW Coeff of Ale (11.5-15.5) % Plt Count (140-440) K/uL Neut % (Auto) (42.0-72.0) % Lymph % (Auto) (20-44) % Hancock % (Auto) (0.0-11.0) % Eos % (Auto) (0.0-7.0) % Baso % (Auto) (0.0-3.0) % Neut # (Auto) (1.7-7.0) K/uL Lymph # (Auto) (0.90-2.90) K/uL Hancock # (Auto) (0.00-0.90) K/UL Eos # (Auto) (0.00-0.50) K/uL Baso # (Auto) (0.00-0.30) K/uL Abs Immat Gran (auto) (0.00-0.30) K/uL Imm/Tot Granulo (auto) % D-Dimer Quant (PE/DVT) (0.00-0.50) ug/ml Sodium Potassium Chloride Carbon Dioxide Anion Gap BUN 17 Creatinine Cancelled 0.9 Estimated Creat Clear Cancelled 51.02 Estimated GFR Cancelled Glucose Lactate (0.5-1.9) mmol/L Calcium Magnesium (1.5-2.6) mg/dL Total Bilirubin (0.1-1.5) mg/dL Direct Bilirubin (0.0-0.5) mg/dL AST (12-35) U/L ALT (4-35) U/L Alkaline Phosphatase (40-150) U/L C-Reactive Protein (0.5-1.0) mg/dL Total Protein (6.0-8.3) g/dL Albumin (3.3-5.0) g/dL Lipase (23-300) U/L POC Troponin I (0.01-0.04) ng/ml 02/23/23 02/23/23 02/23/23 Range/Units 11:52 11:52 11:52 WBC (4.50-11.00) K/uL RBC (4.00-5.20) m/uL Hgb (12.0-16.0) gm/dL Hct (33.0-51.0) % MCV (80-100) fL MCH (26-34) pg MCHC (32-36) gm/dL RDW Coeff of Ale (11.5-15.5) % Plt Count (140-440) K/uL Neut % (Auto) (42.0-72.0) % Lymph % (Auto) (20-44) % Hancock % (Auto) (0.0-11.0) % Eos % (Auto) (0.0-7.0) % Baso % (Auto) (0.0-3.0) % Neut # (Auto) (1.7-7.0) K/uL Lymph # (Auto) (0.90-2.90) K/uL Hancock # (Auto) (0.00-0.90) K/UL Eos # (Auto) (0.00-0.50) K/uL Baso # (Auto) (0.00-0.30) K/uL Abs Immat Gran (auto) (0.00-0.30) K/uL Imm/Tot Granulo (auto) % D-Dimer Quant (PE/DVT) (0.00-0.50) ug/ml Sodium Potassium Chloride Carbon Dioxide Anion Gap BUN Creatinine Estimated Creat Clear Estimated GFR 73 Glucose Cancelled 82 Lactate 2.5 H (0.5-1.9) mmol/L Calcium Cancelled 9.4 Magnesium 2.0 (1.5-2.6) mg/dL Total Bilirubin 0.8 (0.1-1.5) mg/dL Direct Bilirubin 0.2 (0.0-0.5) mg/dL AST 45 H (12-35) U/L ALT 24 (4-35) U/L Alkaline Phosphatase 91 (40-150) U/L C-Reactive Protein 0.6 (0.5-1.0) mg/dL Total Protein 7.9 (6.0-8.3) g/dL Albumin 4.6 (3.3-5.0) g/dL Lipase 211 (23-300) U/L POC Troponin I (0.01-0.04) ng/ml 02/23/23 Range/Units 11:56 WBC (4.50-11.00) K/uL RBC (4.00-5.20) m/uL Hgb (12.0-16.0) gm/dL Hct (33.0-51.0) % MCV (80-100) fL MCH (26-34) pg MCHC (32-36) gm/dL RDW Coeff of Ale (11.5-15.5) % Plt Count (140-440) K/uL Neut % (Auto) (42.0-72.0) % Lymph % (Auto) (20-44) % Hancock % (Auto) (0.0-11.0) % Eos % (Auto) (0.0-7.0) % Baso % (Auto) (0.0-3.0) % Neut # (Auto) (1.7-7.0) K/uL Lymph # (Auto) (0.90-2.90) K/uL Hancock # (Auto) (0.00-0.90) K/UL Eos # (Auto) (0.00-0.50) K/uL Baso # (Auto) (0.00-0.30) K/uL Abs Immat Gran (auto) (0.00-0.30) K/uL Imm/Tot Granulo (auto) % D-Dimer Quant (PE/DVT) (0.00-0.50) ug/ml Sodium Potassium Chloride Carbon Dioxide Anion Gap BUN Creatinine Estimated Creat Clear Estimated GFR Glucose Lactate (0.5-1.9) mmol/L Calcium Magnesium (1.5-2.6) mg/dL Total Bilirubin (0.1-1.5) mg/dL Direct Bilirubin (0.0-0.5) mg/dL AST (12-35) U/L ALT (4-35) U/L Alkaline Phosphatase (40-150) U/L C-Reactive Protein (0.5-1.0) mg/dL Total Protein (6.0-8.3) g/dL Albumin (3.3-5.0) g/dL Lipase (23-300) U/L POC Troponin I 0.02 (0.01-0.04) ng/ml <Kristina Aguiar MD - Last Filed: 02/23/23 15:40> Lab Results 02/23/23 02/23/23 02/23/23 Range/Units 11:52 11:52 11:52 WBC 5.35 (4.50-11.00) K/uL RBC 4.73 (4.00-5.20) m/uL Hgb 13.2 (12.0-16.0) gm/dL Hct 41.5 (33.0-51.0) % MCV 88 (80-100) fL MCH 28 (26-34) pg MCHC 32 (32-36) gm/dL RDW Coeff of Ale 13.6 (11.5-15.5) % Plt Count 158 (140-440) K/uL Neut % (Auto) 66.2 (42.0-72.0) % Lymph % (Auto) 23.0 (20-44) % Hancock % (Auto) 7.3 (0.0-11.0) % Eos % (Auto) 2.8 (0.0-7.0) % Baso % (Auto) 0.7 (0.0-3.0) % Neut # (Auto) 3.54 (1.7-7.0) K/uL Lymph # (Auto) 1.23 (0.90-2.90) K/uL Hancock # (Auto) 0.40 (0.00-0.90) K/UL Eos # (Auto) 0.15 (0.00-0.50) K/uL Baso # (Auto) 0.04 (0.00-0.30) K/uL Abs Immat Gran (auto) 0.00 (0.00-0.30) K/uL Imm/Tot Granulo (auto) 0.0 % D-Dimer Quant (PE/DVT) 0.37 (0.00-0.50) ug/ml Sodium Cancelled 142 Potassium Cancelled 4.4 Chloride Cancelled Carbon Dioxide Anion Gap BUN Creatinine Estimated Creat Clear Estimated GFR Glucose Lactate (0.5-1.9) mmol/L Calcium Magnesium (1.5-2.6) mg/dL Total Bilirubin (0.1-1.5) mg/dL Direct Bilirubin (0.0-0.5) mg/dL AST (12-35) U/L ALT (4-35) U/L Alkaline Phosphatase (40-150) U/L C-Reactive Protein (0.5-1.0) mg/dL Total Protein (6.0-8.3) g/dL Albumin (3.3-5.0) g/dL Lipase (23-300) U/L POC Troponin I (0.01-0.04) ng/ml 02/23/23 02/23/23 02/23/23 Range/Units 11:52 11:52 11:52 WBC (4.50-11.00) K/uL RBC (4.00-5.20) m/uL Hgb (12.0-16.0) gm/dL Hct (33.0-51.0) % MCV (80-100) fL MCH (26-34) pg MCHC (32-36) gm/dL RDW Coeff of Ale (11.5-15.5) % Plt Count (140-440) K/uL Neut % (Auto) (42.0-72.0) % Lymph % (Auto) (20-44) % Hancock % (Auto) (0.0-11.0) % Eos % (Auto) (0.0-7.0) % Baso % (Auto) (0.0-3.0) % Neut # (Auto) (1.7-7.0) K/uL Lymph # (Auto) (0.90-2.90) K/uL Hancock # (Auto) (0.00-0.90) K/UL Eos # (Auto) (0.00-0.50) K/uL Baso # (Auto) (0.00-0.30) K/uL Abs Immat Gran (auto) (0.00-0.30) K/uL Imm/Tot Granulo (auto) % D-Dimer Quant (PE/DVT) (0.00-0.50) ug/ml Sodium Potassium Chloride 107 Carbon Dioxide Cancelled 25 Anion Gap Cancelled 10 BUN Cancelled Creatinine Estimated Creat Clear Estimated GFR Glucose Lactate (0.5-1.9) mmol/L Calcium Magnesium (1.5-2.6) mg/dL Total Bilirubin (0.1-1.5) mg/dL Direct Bilirubin (0.0-0.5) mg/dL AST (12-35) U/L ALT (4-35) U/L Alkaline Phosphatase (40-150) U/L C-Reactive Protein (0.5-1.0) mg/dL Total Protein (6.0-8.3) g/dL Albumin (3.3-5.0) g/dL Lipase (23-300) U/L POC Troponin I (0.01-0.04) ng/ml 02/23/23 02/23/23 02/23/23 Range/Units 11:52 11:52 11:52 WBC (4.50-11.00) K/uL RBC (4.00-5.20) m/uL Hgb (12.0-16.0) gm/dL Hct (33.0-51.0) % MCV (80-100) fL MCH (26-34) pg MCHC (32-36) gm/dL RDW Coeff of Ale (11.5-15.5) % Plt Count (140-440) K/uL Neut % (Auto) (42.0-72.0) % Lymph % (Auto) (20-44) % Hancock % (Auto) (0.0-11.0) % Eos % (Auto) (0.0-7.0) % Baso % (Auto) (0.0-3.0) % Neut # (Auto) (1.7-7.0) K/uL Lymph # (Auto) (0.90-2.90) K/uL Hancock # (Auto) (0.00-0.90) K/UL Eos # (Auto) (0.00-0.50) K/uL Baso # (Auto) (0.00-0.30) K/uL Abs Immat Gran (auto) (0.00-0.30) K/uL Imm/Tot Granulo (auto) % D-Dimer Quant (PE/DVT) (0.00-0.50) ug/ml Sodium Potassium Chloride Carbon Dioxide Anion Gap BUN 17 Creatinine Cancelled 0.9 Estimated Creat Clear Cancelled 51.02 Estimated GFR Cancelled Glucose Lactate (0.5-1.9) mmol/L Calcium Magnesium (1.5-2.6) mg/dL Total Bilirubin (0.1-1.5) mg/dL Direct Bilirubin (0.0-0.5) mg/dL AST (12-35) U/L ALT (4-35) U/L Alkaline Phosphatase (40-150) U/L C-Reactive Protein (0.5-1.0) mg/dL Total Protein (6.0-8.3) g/dL Albumin (3.3-5.0) g/dL Lipase (23-300) U/L POC Troponin I (0.01-0.04) ng/ml 02/23/23 02/23/23 02/23/23 Range/Units 11:52 11:52 11:52 WBC (4.50-11.00) K/uL RBC (4.00-5.20) m/uL Hgb (12.0-16.0) gm/dL Hct (33.0-51.0) % MCV (80-100) fL MCH (26-34) pg MCHC (32-36) gm/dL RDW Coeff of Ale (11.5-15.5) % Plt Count (140-440) K/uL Neut % (Auto) (42.0-72.0) % Lymph % (Auto) (20-44) % Hancock % (Auto) (0.0-11.0) % Eos % (Auto) (0.0-7.0) % Baso % (Auto) (0.0-3.0) % Neut # (Auto) (1.7-7.0) K/uL Lymph # (Auto) (0.90-2.90) K/uL Hancock # (Auto) (0.00-0.90) K/UL Eos # (Auto) (0.00-0.50) K/uL Baso # (Auto) (0.00-0.30) K/uL Abs Immat Gran (auto) (0.00-0.30) K/uL Imm/Tot Granulo (auto) % D-Dimer Quant (PE/DVT) (0.00-0.50) ug/ml Sodium Potassium Chloride Carbon Dioxide Anion Gap BUN Creatinine Estimated Creat Clear Estimated GFR 73 Glucose Cancelled 82 Lactate 2.5 H (0.5-1.9) mmol/L Calcium Cancelled 9.4 Magnesium 2.0 (1.5-2.6) mg/dL Total Bilirubin 0.8 (0.1-1.5) mg/dL Direct Bilirubin 0.2 (0.0-0.5) mg/dL AST 45 H (12-35) U/L ALT 24 (4-35) U/L Alkaline Phosphatase 91 (40-150) U/L C-Reactive Protein 0.6 (0.5-1.0) mg/dL Total Protein 7.9 (6.0-8.3) g/dL Albumin 4.6 (3.3-5.0) g/dL Lipase 211 (23-300) U/L POC Troponin I (0.01-0.04) ng/ml 02/23/23 Range/Units 11:56 WBC (4.50-11.00) K/uL RBC (4.00-5.20) m/uL Hgb (12.0-16.0) gm/dL Hct (33.0-51.0) % MCV (80-100) fL MCH (26-34) pg MCHC (32-36) gm/dL RDW Coeff of Ale (11.5-15.5) % Plt Count (140-440) K/uL Neut % (Auto) (42.0-72.0) % Lymph % (Auto) (20-44) % Hancock % (Auto) (0.0-11.0) % Eos % (Auto) (0.0-7.0) % Baso % (Auto) (0.0-3.0) % Neut # (Auto) (1.7-7.0) K/uL Lymph # (Auto) (0.90-2.90) K/uL Hancock # (Auto) (0.00-0.90) K/UL Eos # (Auto) (0.00-0.50) K/uL Baso # (Auto) (0.00-0.30) K/uL Abs Immat Gran (auto) (0.00-0.30) K/uL Imm/Tot Granulo (auto) % D-Dimer Quant (PE/DVT) (0.00-0.50) ug/ml Sodium Potassium Chloride Carbon Dioxide Anion Gap BUN Creatinine Estimated Creat Clear Estimated GFR Glucose Lactate (0.5-1.9) mmol/L Calcium Magnesium (1.5-2.6) mg/dL Total Bilirubin (0.1-1.5) mg/dL Direct Bilirubin (0.0-0.5) mg/dL AST (12-35) U/L ALT (4-35) U/L Alkaline Phosphatase (40-150) U/L C-Reactive Protein (0.5-1.0) mg/dL Total Protein (6.0-8.3) g/dL Albumin (3.3-5.0) g/dL Lipase (23-300) U/L POC Troponin I 0.02 (0.01-0.04) ng/ml <Kristina Ellis MD - Last Filed: 02/23/23 17:45> Imaging Data CT scan - chest: Attestation: I have reviewed the pertinent imaging results. <Kristina Aguiar MD - Last Filed: 02/23/23 15:40> Radiologist's impression: COMPARISON: CT angiogram PE study 02/17/2023 and 07/10/2022. TECHNIQUE: CT angiogram chest with contrast, pulmonary embolism protocol. Multiplanar axial, coronal, and sagittal reformats are included. MIP images to improve detection of pulmonary emboli are included. Intravenous contrast: 95 mL Isovue 370 FINDINGS: PE: Well-timed contrast bolus. Again noted is severe stenosis of the innominate vein with significant collateralization through the chest and neck. Left internal jugular vein approach chest port. No pulmonary emboli. Normal caliber main pulmonary artery. Normal sized right heart chambers. No reflux of contrast below the diaphragm. Heart and great vessels: No pericardial effusion. Normal cardiac chamber size. No atherosclerotic plaques. No aortic aneurysm. Lungs: Inspiratory phase imaging. No nodules or masses. No consolidations. Normal appearance of the pulmonary interstitium. Pleura: No pleural effusion. No pneumothorax. Airway: Normal tracheobronchial tree. Lymph nodes: No thoracic adenopathy. Mediastinum: No pneumomediastinum. Bones: No fractures. No focal bone lesions. Normal for age. Chest wall: Bilateral mastectomy. Surgical clips right axilla. Upper abdomen: Cholecystectomy. IMPRESSION: 1. No pulmonary embolus. 2. Significant innominate vein stenosis. Recommend future contrast injections through the right arm. <Kristina Aguiar MD - Last Filed: 02/23/23 15:40> ECG Data Attestation: I personally reviewed and interpreted this ECG as follows: <Kristina Aguiar MD - Last Filed: 02/23/23 15:40> Discharge Plan Discharge Clinical Impression: Chest pain <Kristina Aguiar MD - Last Filed: 02/23/23 15:40> Patient Disposition: Home, Self-Care <Kristina Aguiar MD - Last Filed: 02/23/23 15:40> Condition: Stable <Kristina Aguiar MD - Last Filed: 02/23/23 15:40> Instructions: Chest Pain (ED) <Kristina Aguiar MD - Last Filed: 02/23/23 15:40> Additional Instructions: Someone from Dr. La's office from [facility] will contact you tomorrow to get you scheduled for a CT coronary angiogram. Dr. La will follow up with you on the results. This is being done just to ensure that there is no coronary blockage. The echo images did not show any evidence of ischemia per Dr. La, he did read this echo. In the meantime, recommend minimizing activity so as to not provoked chest pain. That any point you are having increased or worsening symptoms, anything new develops that is concerning for you, do recommend re-evaluation. <Kristina Aguiar MD - Last Filed: 02/23/23 15:40> Activity Level: No strenuous activity <Kristina Aguiar MD - Last Filed: 02/23/23 15:40> No strenuous activity <Kristina Ellis MD - Last Filed: 02/23/23 17:45> Prescriptions: No Action lorazepam [Ativan] 0.5 mg tablet 0.5 mg PO HS PRN (Reason: anxiety) Qty: 60 0RF cholecalciferol (vitamin D3) 10 mcg (400 unit) capsule See Rx Instructions PO QDAY Rx Instructions: unknown dose orally every day; letrozole [Femara] 2.5 mg tablet 2.5 mg PO QDAY Qty: 90 3RF calcium carbonate-vitamin D3 600 mg-10 mcg (400 unit) tablet PO BID levothyroxine 100 mcg tablet 100 mcg PO QDAY Qty: 90 0RF Eliquis 5 mg tablet 5 mg PO BID Qty: 60 2RF <Kristina Aguiar MD - Last Filed: 02/23/23 15:40> Follow Up/Referrals: Edson Tate MD [Primary Care Provider] - <Kristina Aguiar MD - Last Filed: 02/23/23 15:40> Stand Alone Forms: MyHealth Info Instructions <Kristina gAuiar MD - Last Filed: 02/23/23 15:40>
[2023-02-23] MEDS: PERFLUTREN LIPID MICROSPHERES 2 ML VIAL IV (16:12)
--- NOTE | 2023-02-23 16:48 | P.STN_ITS ---
Stress Test Note Date Date of test: 02/23/23 Providers Primary care provider: Edson Tate Stress test physician: Marques Bonds Stress Test Note Stress test ordered: Stress Echo Indication for test: Chest pain Stress test medicine: Definity Results discussion: Patient is a very nice 62-year-old female who was initially sound emergency room, then stress test was done for ongoing problems with chest pain, she had 2 sets of troponins which are negative, she has a history of breast cancer, and chemotherapy. She presents for the above test after discussion the risks benefits and side effects she would like to proceed pretest EKG shows normal sinus rhythm, with a ventricular rate of 74 and a blood pressure 158/83. Patient is exercised for a total time of 5 minutes 21 seconds, achieved a metabolic equivalent of 7.1 Mets, her maximum was 146 which is 108% of the maximum. Her maximum blood pressure 200/82. Test is deemed reliable. She did have some chest pain this started approximately 4 minutes and did resolve in recovery. There is ST wave depression notable of 2 mm inferiorly, and up to almost 2 mm laterally. These are upsloping segments, but is positive. Impression: Subjectively positive and objectively positive stress test, electrographic port ion. Follow up suggested: Await echo images, preliminary read by the tech as no evidence of a acute wall motion abnormality, Cardiology consult suggested, treatment for stable angina suggested, I will speak to emergency physician.
== END 2023-02-23 17:57 | disposition home or self-care (01) ==
PROVIDERS: Family Medicine; Emergency Provider Family Medicine; PCP Family Medicine
DX: R07.9 Chest pain, unspecified (principal)
CPT/HCPCS: 36415; 71275; 80048; 80076; 83605; 83690; 83735; 84484; 85025; 85379; 86140; 93005; 93016; 93325; 93351; 94761; 96374; 99284; 99285; J7030; Q9957; Q9967

== ENCOUNTER 2023-04-22 06:47 | Day surgery (SDC) | payer OTHER, SELFPAY ==
[2023-04-22] VITALS (8 sets, daily range): BP systolic 146–199; BP diastolic 74–90; PULSE 67–78; RESP 15–16; TEMP 36.5; O2SAT 95–99; BMI 25.2
[2023-04-22] MEDS: 0.9 % SODIUM CHLORIDE 250 ml 250 ML 35 ML IV (07:21)
[2023-04-22] MEDS: CEFAZOLIN 2 GM INJ IVP (07:23)
[2023-04-22] MEDS: SODIUM CHLORIDE 0.9 % (FLUSH) 10 ML SYRINGE IVF (07:29)
[2023-04-22] MEDS: BUPIVACAINE 0.5% 30 ML INJECTION (08:05)
[2023-04-22] MEDS: lidocaine HCL 2 % MULTIDOSE 20 ML VIAL INJECTION (08:05)
--- NOTE | 2023-04-22 08:35 | P.ORPRC_ITS ---
Procedure Note Date of procedure: 04/22/23 Procedure: Preop diagnosis: Left hand middle finger mucous cyst Postop diagnosis: Left hand middle finger mucous cyst Procedure: DIP joint debridement Anesthesia: Local Surgeon: Juan Velazquez MD patient clerical assistant: JAMES Villagran EBL: 5 mL Complications: None Specimens: None Drains: None Indications: The patient has a history of left hand middle finger mucous cyst. Despite appropriate nonoperative management they continue to have symptoms. Operative intervention was recommended. The risks, benefits alternatives and expected outcomes were discussed in detail. These included but were not limited to: Infection, bleeding, injury to blood vessel or nerve, venous thromboembolism. All questions were answered to their satisfaction. The patient was placed supine on the operating room table. Local anesthesia was established with a digital block using 0.5% Marcaine without epinephrine and 2% lidocaine without epinephrine. The hand was prepped and draped in usual sterile fashion. The finger was exsanguinated, the tourni-cot was used. A Kaylene incision was made over the dorsum of the DIP joint. Tenotomy scissors were used for deep dissection down to the extensor mechanism. A full-thickness, radially based skin flap was elevated. The radial and ulnar side of the joint was entered with the 15 blade. The Lempert rongeur was used to debride the corner of the middle phalanx and base of the distal phalanx to decompress the joint on both sides of the extensor mechanism. The wound was irrigated with normal saline. It was closed with a 3-0 nylon in an interrupted fashion. A soft dressing was applied. The Bernadette was released. Sponge and needle counts were correct x 2. The patient tolerated the procedure well, there were no apparent complications. They were sent to same day surgery in satisfactory condition. Plan: Use of the hand as tolerates. Discontinue the intraoperative dressing on postoperative day 3 and may get the wound wet as tolerates. Follow up in the office in 2 weeks for a wound check and suture removal.
== END 2023-04-22 09:09 | disposition home or self-care (01) ==
PROVIDERS: PCP Family Medicine; Visit Provider Orthopaedic Surgery
PROC: 0HQQXZZ Repair Finger Nail, External Approach (ICD-10-PCS; CPT 11760; principal; 2023-04-22 08:00)
DX: M67.442 Ganglion, left hand (principal)
CPT/HCPCS: 26160; J0665; J0690; J7050

== ENCOUNTER 2023-07-07 15:00 | Outpatient (RCR) | payer OTHER, SELFPAY ==
[2023-02-17 12:27] LABS: Chloride* 106 mmol/L (96-114); Potassium* 3.8 mmol/L (3.6-5.1); Sodium* 144 mmol/L (135-149)
[2023-02-17 12:29] LABS: Creatinine* 0.7 mg/dL (0.5-1.5); Est. Creatinine Clearance* 51.02; Estimated Glomerular Filt Rate 98 ml/min
[2023-02-17 12:30] LABS: Anion Gap 12 mEq/L (7-15); Blood Urea Nitrogen* 13 mg/dL (7-30); Calcium* 9.3 mg/dL (8.4-10.6); Carbon Dioxide* 26 mmol/L (20-32); Glucose* 79 mg/dL (60-115)
== END 2023-08-10 23:59 | disposition home or self-care (01) ==
LOC: CCIC 15:00
PROVIDERS: Physician Assistant; PCP Family Medicine; Referring Provider Family Medicine; Visit Provider Internal Medicine Hematology & Oncology
DX: C50.911 Malignant neoplasm of unspecified site of right female breast (principal); Z17.0 Estrogen receptor positive status [ER+]; Z79.811 Long term (current) use of aromatase inhibitors; M85.80 Other specified disorders of bone density and structure, unspecified site; Z90.13 Acquired absence of bilateral breasts and nipples; Z86.711 Personal history of pulmonary embolism; Z79.01 Long term (current) use of anticoagulants; G47.00 Insomnia, unspecified; F41.9 Anxiety disorder, unspecified; Z90.722 Acquired absence of ovaries, bilateral
CPT/HCPCS: 36415; 80048; 99212; 99214; 99215; G0463

== ENCOUNTER 2023-08-13 11:38 | Outpatient (CLI) | payer OTHER, SELFPAY ==
--- NOTE | 2023-08-13 11:15 | US_ITS ---
Patient: LEROY RICK Facility:?[facility] Patient ID:?[id number] Site Patient ID:?[id number]. Site :?[id number] Study:?US-Extremity Right UEV RT-08/13/2023 12:24:05 PM Ordering Physician:?MOIRA BUCIO APRN Final Report: Indication: Malignant neoplasm of unspecified site with right arm pain Technique: Venous duplex ultrasound of the right upper extremity, deep vein thrombosis protocol, utilizing compression with grayscale and color Doppler Comparison: None Findings: There is no deep vein thrombosis in the right brachiocephalic, internal jugular, subclavian, axillary, brachial, radial, or ulnar veins. There is no superficial vein thrombosis in the basilic or cephalic vein. The soft tissues are unremarkable. Impression: No deep vein thrombosis in the right upper extremity. Dictated by Himanshu Bhardwaj MD @ 08/13/2023 12:39:49 PM Signed by:?Himanshu Bhardwaj MD @08/13/2023 12:39:49 PM (Electronic Signature)
--- OUTSIDE RECORDS SUMMARY | 2023-08-13 11:40 | XMS_ITS | Clinical Summary ---
Author Name Unknown Organization [facility] Address [place], [place] [address] Care Team Providers [employer] Name Role Phone Edson Tate MD Primary Care Provider [phone] Allergies Active Allergy Reactions Criticality Noted Date Comments Latex 04/22/2006 Medications Medication Sig Dispensed Refills Start Date End Date Status LEVOTHYROXINE 75 MCG TABIndications:Unspecifi ed hypothyroidism take 1 tablet (75mcg) by oral route once daily 90 1 02/21/2008 Active LEVOTHYROXINE 75 MCG TABIndications:Unspecifi ed hypothyroidism TAKE 1 TABLET BY MOUTH EVERY DAY 90 Each 2 11/28/2008 Active Active Problems Problem Noted Date Diagnosed Date Adenomatous colon polyp 10/10/2014 Overview: Colonoscopy 10/2014 polyp repeat in 5 years Palpitations 12/29/2006 Predominant disturbance of emotions 11/10/2006 Acute gastritis without mention of hemorrhage Unspecified hypothyroidism 04/22/2006 Immunizations Name Administration Dates Next Due Td (Age >=7 Years) 05/03/1995 Family History Medical History Relation Name Comments Thyroid Disease Brother 1 MARKUS Unknown Brother 2 DREW Good Health Brother 3 ELOY Good Health Brother 4 LUCIANO Heart Disease Mother Cancer-breast Other cousins Cancer-breast Sister 2 JUN BREAST CANCER Cancer Sister 3 PAT ENDOCERVICAL Cancer-colon No Family History Cancer-ovarian No Family History Relation Name Status Comments Brother 1 MARKUS Brother 2 DREW Brother 3 ELOY Brother 4 LUCIANO Father (Age 54) MVA Mother (Age 90) Other Sister 1 (Age 47) BREAST CAN CER Sister 2 JUN Sister 3 PAT Social History Tobacco Use Types Packs/Day Years Used Date Smoking Tobacco: Never Alcohol Use Standard Drinks/Week Comments Yes 0 (1 standard drink = 0.6 oz pur e alcohol) rare Sex and Gender Information Value Date Recorded Sex Assigned at Not on file Gender Identity Not on file Sexual Orientation Not on file Obstetrics History Last Filed Vital Signs Vital Sign Reading Time Taken Comments Blood Pressure 159/85 03/10/2023 10:13 AM SEARCH ENGINE OPTIMIZATION SPECIALIST Pulse 72 03/10/2023 10:13 AM SEARCH ENGINE OPTIMIZATION SPECIALIST Temperature 36 ??C (96.8 ??F) 03/02/2007 2:07 PM CDT Respiratory Rate 16 07/07/2007 3:53 PM SEARCH ENGINE OPTIMIZATION SPECIALIST Oxygen Saturation 97% 12/29/2006 2:00 PM CDT Inhaled Oxygen Concentration - - Weight 63.5 kg (140 lb) 07/07/2007 3:53 PM SEARCH ENGINE OPTIMIZATION SPECIALIST Height 161.9 cm (5' 3.75) 07/07/2007 3:53 PM CS T Body Mass Index 24.22 07/07/2007 3:53 PM SEARCH ENGINE OPTIMIZATION SPECIALIST Plan of Treatment Health Maintenance Due Date Last Done Comments Tdap 1972 Depression screening for age 12+ 1973 BMI (ht and wt on same day) for age 18+ 1979 Tetanus booster 05/03/2005 05/03/1995 Lipids for age 45-75 08/30/2008 08/31/2003, 08/31/19 04 Mammogram for age 45-75 11/20/2010 11/20/2009 Zoster (shingles) series for age 50+ (1 of 2) 2011 Colonoscopy through age 75 10/09/2019 10/08/2014, COVID-19 vaccine series ( season) 2023 04/05/2021 Pap test for age 21-65 05/16/2023 , 05/16/2020, 09/14/2014, Additional history exists Influenza for age 50-64 01/02/2024 HIV for age 15-65 Completed 07/07/2007 Hepatitis C screening for age 18-79 Completed 07/07/2007 Pneumococcal series for age 6-64 Aged Out No longer eligible based on patient's age to complete this topic Procedures Procedure Name Priority Date/Time Associated Diagnosis Comments MINE CAR REPAIRER THIN PREP PAP SCREEN IMAGED Routine 05/16/2020 1:30 PM SEARCH ENGINE OPTIMIZATION SPECIALIST SCAN-COLONOSCOPY 10/08/2014 12:0 0 AM CDT SCAN-MAMMOGRAPHY REPORT 11/20/2009 12:00 AM CDT ANTI HIV 1/2 Routine 07/07/2007 4:22 PM SEARCH ENGINE OPTIMIZATION SPECIALIST Screening Exam Venereal Disease ANTI HCV Routine 07/07/2007 4:22 PM SEARCH ENGINE OPTIMIZATION SPECIALIST Screening Exam Venereal Disease CHOLESTEROL,TOTAL Routine 08/31/2003 10: 49 AM CDT from Last 3 Months or Most Recently Relevant to Health Maintenance Results * MINE CAR REPAIRER THIN PREP PAP SCREEN IMAGED (05/16/2020 1:30 PM SEARCH ENGINE OPTIMIZATION SPECIALIST) Case Report Gynecologic Cytology Report ? Case: [id number] ? Authorizing Provider: ??Tiffanie Rai ?Collected: ? 05/16/2020 1330 ? MD Sara ? Ordering Location: ? [facility] ?Received: ?05/17/2020 1855 ? First Screen: ?Coleen Andrade ? Rescreen: ?Salma Sánchez ? Specimen: ?MINE CAR REPAIRER ThinPrep Vial Screening, Cervical/Vaginal ? 05/30/2020 2:48 PM [facility] INTERPRETATION/ RESULT NEGATIVE FOR INTRAEPITHELIAL LESION OR MALIGNANCY (NIL) (none) 05/30/2020 2:48 PM [facility] IMEN ADEQUACY Satisfactory for evaluation Endocervical component present 05/30/2020 2:48 PM SEARCH ENGINE OPTIMIZATION SPECIALIST [facility] HPV REQUEST HPV and PAP 05/30/2020 2:48 PM [facility] Last Pap Date 09/14/2014 05/30/2020 2:48 PM [facility] Last Pap Result NIL 2:48 PM [facility] Comment:-HPV Menstrual Status Postmenopausal 05/30/2020 2:48 PM [facility] Additional Information 05/30/2020 2:48 PM [facility] Comment: Interpreted at [facility] - [address], [place] [address] Automated Review Successful 05/30/2020 2:48 PM [facility] Comment:Specimen processed s uccessfully by automated game farm helper device, ThinPrep Imaging System, [employer] ANCILLARY TESTING MINE CAR REPAIRER HPV Ordered, Please see separate report 05/30/2020 2:48 PM SEARCH ENGINE OPTIMIZATION SPECIALIST [facility] Note The pap test is a screening technique, not a diagnostic procedure. It is used primarily to screen for squamous cancers and precursor lesions. Published studies have shown that it is subject to both false negative and false positive results. The pap test should not be used as the sole means to diagnose or exclude pre-malignant and malignant lesions. 05/30/2020 2:48 PM SEARCH ENGINE OPTIMIZATION SPECIALIST [facility] Other (Cervical/Vagina l) 05/16/2020 1:30 PM SEARCH ENGINE OPTIMIZATION SPECIALIST 05/17/2020 6:55 PM SEARCH ENGINE OPTIMIZATION SPECIALIST Tiffanie Rai MD PATHOLOGY/ CYTOLOGY Performing Organization Address City/[facility]/ZIP Co de Phone Number [facility] [address] [place] [address], * SCAN-COLONOSCOPY (10/08/2014 12:00 AM CDT) Narrative 10/08/2014 12:00 AM CDT Procedure Note Scanner - 10/08/2014 12:00 AM CDT Scanner OTHER * SCAN-MAMMOGRAPHY REPORT (11/20/2009 12:00 AM CDT) Anatomical Region Laterality Modality Other Narrative Procedure Note Scanner - 11/20/2009 12:00 AM CDT Scanner OTHER * ANTI HCV (07/07/2007 4:22 PM SEARCH ENGINE OPTIMIZATION SPECIALIST) ANTI HCV Non-reacti ve [facility] Blood specimen (specimen) BLOOD SPECIMEN / Unknown 07/07/2007 4:22 PM SEARCH ENGINE OPTIMIZATION SPECIALIST 07/07/2007 4:16 PM SEARCH ENGINE OPTIMIZATION SPECIALIST Anny Poon MD SEND OUTS Performing Organization Address City/[facility]/ZIP Co de Phone Number [facility] INTERNAL ZIP [phone] [place] [address] * ANTI HIV 1/2 (07/07/2007 4:22 PM SEARCH ENGINE OPTIMIZATION SPECIALIST) ANTI HIV 1/2 Non-reacti ve [facility] Blood specimen (specimen) BLOOD SPECIMEN / Unknown 07/07/2007 4:22 PM SEARCH ENGINE OPTIMIZATION SPECIALIST 07/07/2007 4:16 PM SEARCH ENGINE OPTIMIZATION SPECIALIST Anny Poon MD SEND OUTS [facility] INTERNAL ZIP [address] [place] [id number] * CHOLESTEROL,TOTAL (08/31/2003 10:49 AM CDT) CHOLESTEROL,TOT AL 199 110 - 199 mg/dL 08/31/2003 10:4 9 AM CDT Narrative 10/12/2003 4:20 PM CDT Ordered by an unspecified provider. Other Clinical Staff CHEMISTRY from Last 3 Months or Most Recently Relevant to Health Maintenance Care Teams [employer] Relationship Specialty Start Date End Date Edson Tate MD PCP - General Family Practice 10/24/21
== END 2023-08-13 11:39 | disposition home or self-care (01) ==
LOC: US 11:38
PROVIDERS: PCP Family Medicine; Visit Provider Clinical Nurse Specialist
DX: M79.89 Other specified soft tissue disorders (principal); C50.911 Malignant neoplasm of unspecified site of right female breast
CPT/HCPCS: 93971

== ENCOUNTER 2024-01-31 14:30 | Outpatient (RCR) | payer OTHER, SELFPAY ==
--- NOTE | 2023-08-13 14:26 | PC.NURSE ---
Noted negative RUE Doppler results. No clot seen. Yolis Hernandez APRN entered a Cancer Rehab referral. Called pt with this update and asked her to follow-up with Cancer Rehab. She will do so. RN also advised pt to do the basic post-op exercises she was given. Melody will do so.
== END 2024-02-09 23:59 | disposition home or self-care (01) ==
LOC: CCIC 14:30
PROVIDERS: PCP Family Medicine; Visit Provider Internal Medicine Hematology & Oncology
DX: C50.911 Malignant neoplasm of unspecified site of right female breast (principal); C50.912 Malignant neoplasm of unspecified site of left female breast; Z17.0 Estrogen receptor positive status [ER+]; Z79.811 Long term (current) use of aromatase inhibitors; Z86.711 Personal history of pulmonary embolism; Z79.01 Long term (current) use of anticoagulants; G47.00 Insomnia, unspecified; F41.9 Anxiety disorder, unspecified; Z90.13 Acquired absence of bilateral breasts and nipples
CPT/HCPCS: 99214; G0463

== ENCOUNTER 2024-06-01 14:28 | Outpatient (CLI) | payer OTHER, SELFPAY | END 2024-06-01 14:29 | disposition home or self-care (01) | PROVIDERS: PCP Family Medicine; Visit Provider Family Medicine | DX: E03.9 Hypothyroidism, unspecified (principal); C50.911 Malignant neoplasm of unspecified site of right female breast | CPT/HCPCS: 80053; 84439; 84443; 84480 ==

== ENCOUNTER 2024-08-02 14:30 | Outpatient (RCR) | payer OTHER, SELFPAY ==
--- NOTE | 2024-07-17 14:34 | URNOTE ---
Prior auth is not required for Denosumab ([id number]) per R. Transaction #[id number]
[2024-08-01 15:00] LABS: Calcium* 10.3 mg/dL (8.4-10.6)
[2024-08-02] MEDS: DENOSUMAB 60 MG/ML SYRINGE SUBCUT (15:45)
== END 2024-10-24 23:59 | disposition home or self-care (01) ==
LOC: CCIC 14:30
PROVIDERS: PCP Family Medicine; Referring Provider Family Medicine; Visit Provider Internal Medicine Hematology & Oncology
DX: C50.911 Malignant neoplasm of unspecified site of right female breast (principal); C50.912 Malignant neoplasm of unspecified site of left female breast; Z17.0 Estrogen receptor positive status [ER+]; M85.80 Other specified disorders of bone density and structure, unspecified site; Z79.811 Long term (current) use of aromatase inhibitors; Z90.13 Acquired absence of bilateral breasts and nipples; G47.00 Insomnia, unspecified; F41.9 Anxiety disorder, unspecified; Z79.01 Long term (current) use of anticoagulants
CPT/HCPCS: 36415; 82310; 96372; 99214; 99215; G0463; J0897

== ENCOUNTER 2024-12-28 14:03 | Outpatient (CLI) | payer OTHER, SELFPAY ==
--- NOTE | 2024-12-28 14:30 | CRLHL7_ITS ---
For Patients: As a result of the Century Cures Act, medical imaging exams and procedure reports are released immediately into your electronic medical record. You may view this report before your referring provider. If you have questions, please contact your health care provider. XR DXA BONE MINERAL DENSITY (BMD) Current height (in): 64.0. Weight (lb): 167.0. Menopause age: 53. Ethnicity: White. Reason for exam: Malignant neoplasm of unspecified site. 1. Have you had a previous hip or vertebral fracture? No. 2. Have you had any fractures during your adult life which did not result from significant trauma (e.g., auto accident)? No. 3. Did either of your parents have a hip fracture? No. 4. Do you smoke? No. 5. Have you ever taken Glucocorticoids? Yes. 6. Do you have rheumatoid arthritis? No. 7. Do you have secondary osteoporosis? No. 8. Do you drink 3 or more alcoholic drinks per day? No. 9. Are you being treated for osteoporosis? No. 10. Have you ever taken any of the following medications: Actonel, Evista, Fosamax, Miacalcin, Reclast, Boniva, Forteo, HRT (i.e. estrogen/hormone therapy), Protelos, Prolia, Vitamin D, Calcium, other ??? please specify. ANSWER: Yes, vitamin D, HRT, Prolia, Calcium, other; levothyroxine 11. Do you have any of the following medical conditions: Anorexia or bulimia, asthma or emphysema, end stage renal disease, hyperparathyroidism, any seizure disorders, cancer, inflammatory bowel diseases, hysterectomy, other ??? please specify. ANSWER: Yes, hypothyroidism, cancer. 12. What was your maximum height (inches)? 62. 13. Do you perform weight bearing exercise regularly? No. 14. Do you regularly consume dairy products? Yes. 15. Do you drink caffeinated beverages? Yes. 16. At what age did your period start? 13. 17. Are you premenopausal? No. 18. How many full-term pregnancies have you had? 1. 19. Have you ever missed your period for more than 6 months in a row (not including or menopause)? Yes. TECHNIQUE: Bone mineral density study was performed using the HAM-IT. FINDINGS: The results of the study expressed as bone mineral density (BMD) are as follows: Lumbar spine L1, L2, L4: BMD: 0.849 g/cm2. T-score: -1.7. Z-score: 0.0 Radius Right 33%: BMD: 0.590 g/cm2. T-score: -1.7. Z-score: -0.2 Radius Left 33%: BMD: 0.588 g/cm2. T-score: -1.8. Z-score: -0.2 IMPRESSION: Osteopenia. *Comparison exams done prior to 10/2019 were performed on different unit, [employer]. COMPARISON: Compared with scan of 08/06/2022, the bone mineral density has decreased by 1.4 percent at the spine. Rakesh Mathew M.D. Diagnostic Radiologist [email or web address] Transcribed: 10:44 am DW/Dictated by: Rakesh Mathew MD @ 12/29/2024 10:16:00 AM (Electronically Signed)
== END 2024-12-28 14:04 | disposition home or self-care (01) ==
LOC: RAD 14:04
PROVIDERS: PCP Family Medicine; Visit Provider Internal Medicine Hematology & Oncology
DX: C50.911 Malignant neoplasm of unspecified site of right female breast (principal); M85.89 Other specified disorders of bone density and structure, multiple sites
CPT/HCPCS: 77080